=== PATIENT | male | born 1950 | race Caucasian/White ===

== ENCOUNTER 2019-12-13 12:45 | Outpatient (REF) | payer MEDICARE, SELFPAY ==
[2019-12-13 15:03] LABS: Alanine Aminotransferase 63 U/L (0-40); Albumin Level 4.3 g/dL (3.5-5.0); Alkaline Phosphatase 50 U/L (39-117); Anion Gap 12 (12-20); Aspartate Amino Transferase 36 U/L (5-37); Bilirubin Total 0.7 mg/dL (0.0-1.0); Blood Urea Nitrogen 25 mg/dL (9-16); Calcium 9.1 mg/dL (8.4-10.2); Carbon Dioxide 31 mmol/L (22-29); Chloride 100 mmol/L (96-108); Cholesterol 198 mg/dL; Estimated Glomerular Filt Rate > 60; Glucose Fasting 186 mg/dL (60-99); HDL Cholesterol 39 mg/dL; LDL Cholesterol Calculated 113 mg/dl; Potassium 4.5 mmol/l (3.3-5.1); Sodium 138 mmol/L (135-145); Total Protein 6.7 g/dL (6.5-8.0); Triglycerides 233 mg/dL
[2019-12-13 15:25] LABS: Estimated Average Glucose 214 mg/dL; Hemoglobin A1c % 9.1 %
== END 2019-12-13 12:46 | disposition home or self-care (01) ==
LOC: HO.LAB 12:45
PROVIDERS: PCP Physician Assistant; Visit Provider Physician Assistant
DX: E11.9 Type 2 diabetes mellitus without complications (principal); I10 Essential (primary) hypertension; E78.5 Hyperlipidemia, unspecified
CPT/HCPCS: 80053; 80061; 83036

== ENCOUNTER 2020-04-05 12:50 | Outpatient (REF) | payer MEDICARE, OTHER, SELFPAY ==
[2020-04-05 13:18] LABS: MANUAL DIFF FLAG NO
[2020-04-05 13:48] LABS: Basophils Percent Auto 0.2 % (0-2); Eosinophils Absolute Auto 0.1 X10*3/uL (0.0-0.4); Eosinophils Percent Auto 1.9 % (0-4); Hematocrit 42.7 % (42-52); Hemoglobin 14.6 g/dl (14.0-18.0); Imm Gran Abs Auto 0.01 X10*3/uL (0.00-0.03); Imm Gran Pct Auto 0.2 % (0.0-0.4); Lymphocytes Absolute Auto 1.5 X10*3/uL (1.2-4.9); Lymphocytes Percent Auto 27.4 % (20-40); Mean Corpuscular HGB Conc 34.2 g/dl (31.0-36.0); Mean Corpuscular Hemoglobin 31.1 pg (27.0-33.0); Mean Platelet Volume 9.1 fL (9.4-12.4); Monocytes Absolute Auto 0.4 X10*3/uL (0.1-1.2); Monocytes Percent Auto 7.3 % (2-11); Neutrophils Absolute Auto 3.4 X10*3/uL (2.0-8.3); Platelet Count 159 X10*3/uL (160-400); Red Blood Count 4.69 X10*6/uL (4.60-5.80); Red Cell Distribution Width 13.7 % (11.0-16.0); White Blood Count 5.4 X10*3/uL (4.8-10.8)
[2020-04-05 14:17] LABS: Estimated Average Glucose 212 mg/dL
[2020-04-05 14:41] LABS: Creatinine Urine 175.93 mg/dL; Microalbum/Creatinine Ratio Ur 34.1 ug/mg cr
[2020-04-05 14:45] LABS: Alanine Aminotransferase 70 U/L (0-40); Albumin Level 4.4 g/dL (3.5-5.0); Alkaline Phosphatase 44 U/L (39-117); Anion Gap 12 (12-20); Aspartate Amino Transferase 46 U/L (5-37); Bilirubin Total 0.7 mg/dL (0.0-1.0); Blood Urea Nitrogen 33 mg/dL (9-16); Calcium 9.4 mg/dL (8.4-10.2); Carbon Dioxide 28 mmol/L (22-29); Chloride 103 mmol/L (96-108); Cholesterol 175 mg/dL; Estimated Glomerular Filt Rate > 60; Glucose Fasting 167 mg/dL (60-99); HDL Cholesterol 38 mg/dL; LDL Cholesterol Calculated 112 mg/dl; Potassium 4.4 mmol/L (3.3-5.1); Sodium 139 mmol/L (135-145); Total Protein 6.9 g/dL (6.5-8.0); Triglycerides 125 mg/dL
== END 2020-04-05 12:51 | disposition home or self-care (01) ==
LOC: HO.LAB 12:50
PROVIDERS: PCP Physician Assistant; Visit Provider Physician Assistant
DX: E11.9 Type 2 diabetes mellitus without complications (principal); E78.2 Mixed hyperlipidemia; I10 Essential (primary) hypertension; E78.5 Hyperlipidemia, unspecified; R80.9 Proteinuria, unspecified
CPT/HCPCS: 36415; 80053; 80061; 82043; 83036; 85025

== ENCOUNTER 2020-07-26 09:52 | Outpatient (REF) | payer MEDICARE, SELFPAY ==
[2020-07-26 11:09] LABS: Estimated Average Glucose 131 mg/dL; Hemoglobin A1c % 6.2 %
[2020-07-26 11:13] LABS: Creatinine Urine 108.81 mg/dL; Microalbum/Creatinine Ratio Ur 12.8 ug/mg cr
[2020-07-26 11:15] LABS: Alanine Aminotransferase 39 U/L (0-40); Albumin Level 4.2 g/dL (3.5-5.0); Alkaline Phosphatase 50 U/L (39-117); Anion Gap 12 (12-20); Aspartate Amino Transferase 42 U/L (5-37); Bilirubin Total 0.7 mg/dL (0.0-1.0); Blood Urea Nitrogen 31 mg/dL (9-16); Calcium 9.4 mg/dL (8.4-10.2); Carbon Dioxide 30 mmol/L (22-29); Chloride 101 mmol/L (96-108); Cholesterol 193 mg/dL; Estimated Glomerular Filt Rate > 60; Glucose Fasting 128 mg/dL (60-99); HDL Cholesterol 43 mg/dL; LDL Cholesterol Calculated 129 mg/dl; Potassium 4.9 mmol/L (3.3-5.1); Sodium 138 mmol/L (135-145); Total Protein 6.9 g/dL (6.5-8.0); Triglycerides 107 mg/dL
[2020-07-26 11:31] LABS: SARS COV2 IgG Positive (Negative)
[2020-07-26 11:37] LABS: Prostate Specific Antigen Scr 0.79 ng/mL (<0.05-4.0)
== END 2020-07-26 09:53 | disposition home or self-care (01) ==
LOC: HO.LAB 09:52
PROVIDERS: PCP Physician Assistant; Visit Provider Physician Assistant
DX: Z12.5 Encounter for screening for malignant neoplasm of prostate (principal); Z20.822 Contact with and (suspected) exposure to COVID-19; I10 Essential (primary) hypertension; E11.9 Type 2 diabetes mellitus without complications
CPT/HCPCS: 36415; 80053; 80061; 82043; 83036; 84153; 86769

== ENCOUNTER 2020-11-12 11:01 | Outpatient (REF) | payer MEDICARE, SELFPAY ==
[2020-11-12 12:04] LABS: Hematocrit 42.1 % (42-52); Hemoglobin 14.4 g/dl (14.0-18.0); Mean Corpuscular HGB Conc 34.2 g/dl (31.0-36.0); Mean Corpuscular Hemoglobin 30.9 pg (27.0-33.0); Mean Corpuscular Volume 90.3 fL (80-98); Mean Platelet Volume 9.4 fL (9.4-12.4); Platelet Count 147 X10*3/uL (160-400); Red Blood Count 4.66 X10*6/uL (4.60-5.80); Red Cell Distribution Width 14.6 % (11.0-16.0); White Blood Count 4.9 X10*3/uL (4.8-10.8)
[2020-11-12 12:20] LABS: Alanine Aminotransferase 26 U/L (0-40); Albumin Level 4.1 g/dL (3.5-5.0); Alkaline Phosphatase 52 U/L (39-117); Anion Gap 12 (12-20); Aspartate Amino Transferase 23 U/L (5-37); Bilirubin Total 0.6 mg/dL (0.0-1.0); Blood Urea Nitrogen 29 mg/dL (9-16); Calcium 9.3 mg/dL (8.4-10.2); Carbon Dioxide 26 mmol/L (22-29); Chloride 108 mmol/L (96-108); Cholesterol 202 mg/dL; Estimated Glomerular Filt Rate > 60; Glucose Fasting 159 mg/dL (60-99); HDL Cholesterol 41 mg/dL; LDL Cholesterol Calculated 137 mg/dl; Potassium 4.6 mmol/L (3.3-5.1); Sodium 141 mmol/L (135-145); Total Protein 6.3 g/dL (6.5-8.0); Triglycerides 124 mg/dL
[2020-11-12 12:30] LABS: Estimated Average Glucose 146 mg/dL; Hemoglobin A1c % 6.7 %; TSH reflex Free T4 1.32 uIU/mL (0.32-4.0)
== END 2020-11-12 11:02 | disposition home or self-care (01) ==
LOC: HO.LAB 11:01
PROVIDERS: PCP Physician Assistant; Visit Provider Physician Assistant
DX: E11.9 Type 2 diabetes mellitus without complications (principal); I10 Essential (primary) hypertension
CPT/HCPCS: 36415; 80053; 80061; 83036; 84443; 85027

== ENCOUNTER 2021-07-02 12:11 | Outpatient (REF) | payer MEDICARE, OTHER, SELFPAY ==
[2021-07-02 12:48] LABS: Hematocrit 40.5 % (42.0-52.0); Hemoglobin 13.9 g/dl (14.0-18.0); Mean Corpuscular HGB Conc 34.3 g/dl (31.0-36.0); Mean Corpuscular Hemoglobin 31.5 pg (27.0-33.0); Mean Corpuscular Volume 91.8 fL (80.0-98.0); Mean Platelet Volume 9.5 fL (9.4-12.4); Platelet Count 157 X10*3/uL (160-400); Red Blood Count 4.41 X10*6/uL (4.60-5.80); Red Cell Distribution Width 13.9 % (11.0-16.0); White Blood Count 4.6 X10*3/uL (4.8-10.8)
[2021-07-02 13:11] LABS: Alanine Aminotransferase 49 U/L (0-40); Albumin Level 4.2 g/dL (3.5-5.0); Alkaline Phosphatase 56 U/L (39-117); Anion Gap 13 (12-20); Aspartate Amino Transferase 39 U/L (5-37); Bilirubin Total 0.8 mg/dL (0.0-1.0); Blood Urea Nitrogen 23 mg/dL (9-16); Calcium 9.8 mg/dL (8.4-10.2); Carbon Dioxide 29 mmol/L (22-29); Chloride 102 mmol/L (96-108); Cholesterol 184 mg/dL; Estimated Glomerular Filt Rate 58; Glucose Fasting 144 mg/dL (60-99); HDL Cholesterol 37 mg/dL; LDL Cholesterol Calculated 97 mg/dl; Potassium 4.9 mmol/L (3.3-5.1); Sodium 139 mmol/L (135-145); Total Protein 6.8 g/dL (6.5-8.0); Triglycerides 252 mg/dL
[2021-07-02 13:15] LABS: Estimated Average Glucose 171 mg/dL; Hemoglobin A1c % 7.6 %
[2021-07-02 13:39] LABS: TSH reflex Free T4 1.37 uIU/mL (0.32-4.0)
[2021-07-02 13:56] LABS: Creatinine Urine 165.61 mg/dL; Microalbum/Creatinine Ratio Ur 30.7 ug/mg cr
== END 2021-07-02 12:12 | disposition home or self-care (01) ==
LOC: HO.LAB 12:11
PROVIDERS: PCP Physician Assistant; Visit Provider Physician Assistant
DX: Z12.5 Encounter for screening for malignant neoplasm of prostate (principal); I10 Essential (primary) hypertension; E78.2 Mixed hyperlipidemia; E11.9 Type 2 diabetes mellitus without complications
CPT/HCPCS: 36415; 80053; 80061; 82043; 83036; 84153; 84443; 85027

== ENCOUNTER 2021-10-14 12:32 | Outpatient (REF) | payer MEDICARE, OTHER, SELFPAY ==
[2021-10-14 13:54] LABS: Hematocrit 37.6 % (42.0-52.0); Hemoglobin 12.6 g/dl (14.0-18.0); Mean Corpuscular HGB Conc 33.5 g/dl (31.0-36.0); Mean Corpuscular Hemoglobin 30.7 pg (27.0-33.0); Mean Corpuscular Volume 91.5 fL (80.0-98.0); Mean Platelet Volume 9.4 fL (9.4-12.4); Platelet Count 183 X10*3/uL (160-400); Red Blood Count 4.11 X10*6/uL (4.60-5.80); Red Cell Distribution Width 14.5 % (11.0-16.0)
[2021-10-14 13:56] LABS: Estimated Average Glucose 163 mg/dL; Hemoglobin A1c % 7.3 %
[2021-10-14 14:23] LABS: Alanine Aminotransferase 35 U/L (0-40); Albumin Level 3.8 g/dL (3.5-5.0); Alkaline Phosphatase 51 U/L (39-117); Anion Gap 13 (12-20); Aspartate Amino Transferase 22 U/L (5-37); Bilirubin Total 0.6 mg/dL (0.0-1.0); Blood Urea Nitrogen 15 mg/dL (9-16); Calcium 8.1 mg/dL (8.4-10.2); Carbon Dioxide 27 mmol/L (22-29); Chloride 106 mmol/L (96-108); Cholesterol 132 mg/dL; Estimated Glomerular Filt Rate > 60; Glucose Fasting 130 mg/dL (60-99); HDL Cholesterol 30 mg/dL; LDL Cholesterol Calculated 82 mg/dl; Potassium 4.6 mmol/L (3.3-5.1); Sodium 141 mmol/L (135-145); Total Protein 5.9 g/dL (6.5-8.0); Triglycerides 103 mg/dL
[2021-10-14 14:43] LABS: TSH reflex Free T4 0.98 uIU/mL (0.32-4.0)
== END 2021-10-14 12:33 | disposition home or self-care (01) ==
LOC: HO.LAB 12:32
PROVIDERS: PCP Physician Assistant; Visit Provider Physician Assistant
DX: E11.9 Type 2 diabetes mellitus without complications (principal); I10 Essential (primary) hypertension
CPT/HCPCS: 36415; 80053; 80061; 83036; 84443; 85027

== ENCOUNTER 2022-02-11 11:54 | Outpatient (REF) | payer MEDICARE, OTHER, SELFPAY ==
[2022-02-11 12:34] LABS: Hemoglobin 14.7 g/dl (14.0-18.0); Mean Corpuscular HGB Conc 34.2 g/dl (31.0-36.0); Mean Corpuscular Hemoglobin 30.7 pg (27.0-33.0); Mean Corpuscular Volume 89.8 fL (80.0-98.0); Mean Platelet Volume 9.2 fL (9.4-12.4); Platelet Count 154 X10*3/uL (160-400); Red Blood Count 4.79 X10*6/uL (4.60-5.80); Red Cell Distribution Width 14.1 % (11.0-16.0); White Blood Count 5.1 X10*3/uL (4.8-10.8)
[2022-02-11 13:32] LABS: Alanine Aminotransferase 61 U/L (0-40); Albumin Level 4.3 g/dL (3.5-5.0); Alkaline Phosphatase 54 U/L (39-117); Anion Gap 12 (12-20); Aspartate Amino Transferase 42 U/L (5-37); Bilirubin Total 0.8 mg/dL (0.0-1.0); Blood Urea Nitrogen 27 mg/dL (9-16); Calcium 9.5 mg/dL (8.4-10.2); Carbon Dioxide 30 mmol/L (22-29); Chloride 102 mmol/L (96-108); Cholesterol 216 mg/dL; Estimated Glomerular Filt Rate > 60; Glucose Fasting 212 mg/dL (60-99); HDL Cholesterol 41 mg/dL; LDL Cholesterol Calculated 128 mg/dl; Potassium 5.2 mmol/L (3.3-5.1); Sodium 139 mmol/L (135-145); Total Protein 6.8 g/dL (6.5-8.0); Triglycerides 239 mg/dL
== END 2022-02-11 11:55 | disposition home or self-care (01) ==
LOC: HO.LAB 11:54
PROVIDERS: PCP Physician Assistant; Visit Provider Physician Assistant
DX: E11.9 Type 2 diabetes mellitus without complications (principal); E78.2 Mixed hyperlipidemia
CPT/HCPCS: 36415; 80053; 80061; 85027

== ENCOUNTER 2022-07-11 15:41 | Outpatient (REF) | payer MEDICARE, OTHER, SELFPAY ==
[2022-07-11 16:44] LABS: Hematocrit 42.3 % (42.0-52.0); Hemoglobin 14.5 g/dl (14.0-18.0); Mean Corpuscular HGB Conc 34.3 g/dl (31.0-36.0); Mean Corpuscular Volume 90.4 fL (80.0-98.0); Mean Platelet Volume 9.7 fL (9.4-12.4); Platelet Count 202 X10*3/uL (160-400); Red Blood Count 4.68 X10*6/uL (4.60-5.80); White Blood Count 7.3 X10*3/uL (4.8-10.8)
[2022-07-11 16:53] LABS: Estimated Average Glucose 203 mg/dL; Hemoglobin A1c % 8.7 %
[2022-07-11 17:26] LABS: Creatinine Urine 194.04 mg/dL; Microalbum/Creatinine Ratio Ur 45.8 ug/mg cr
[2022-07-11 17:30] LABS: Alanine Aminotransferase 51 U/L (0-40); Albumin Level 4.4 g/dL (3.5-5.0); Alkaline Phosphatase 51 U/L (39-117); Anion Gap 15 (12-20); Aspartate Amino Transferase 39 U/L (5-37); Bilirubin Total 0.9 mg/dL (0.0-1.0); Blood Urea Nitrogen 25 mg/dL (9-16); Calcium 9.7 mg/dL (8.4-10.2); Carbon Dioxide 25 mmol/L (22-29); Chloride 106 mmol/L (96-108); Cholesterol 222 mg/dL; Estimated Glomerular Filt Rate 59; Glucose Fasting 155 mg/dL (60-99); HDL Cholesterol 40 mg/dL; LDL Cholesterol Calculated 126 mg/dl; Potassium 4.6 mmol/L (3.3-5.1); Sodium 141 mmol/L (135-145); Total Protein 6.9 g/dL (6.5-8.0); Triglycerides 282 mg/dL
[2022-07-11 17:46] LABS: TSH reflex Free T4 1.19 uIU/mL (0.32-4.0)
== END 2022-07-11 15:42 | disposition home or self-care (01) ==
LOC: HO.LAB 15:41
PROVIDERS: PCP Physician Assistant; Visit Provider Physician Assistant
DX: E78.2 Mixed hyperlipidemia (principal); E11.9 Type 2 diabetes mellitus without complications; I10 Essential (primary) hypertension
CPT/HCPCS: 36415; 80053; 80061; 82043; 83036; 84443; 85027

== ENCOUNTER 2022-12-01 13:01 | Outpatient (REF) | payer MEDICARE, OTHER, SELFPAY ==
[2022-12-01 13:50] LABS: Hematocrit 41.2 % (42.0-52.0); Hemoglobin 13.8 g/dl (14.0-18.0); Mean Corpuscular HGB Conc 33.5 g/dl (31.0-36.0); Mean Corpuscular Hemoglobin 30.9 pg (27.0-33.0); Mean Corpuscular Volume 92.2 fL (80.0-98.0); Mean Platelet Volume 9.6 fL (9.4-12.4); Platelet Count 154 X10*3/uL (160-400); Red Blood Count 4.47 X10*6/uL (4.60-5.80); Red Cell Distribution Width 13.6 % (11.0-16.0); White Blood Count 4.5 X10*3/uL (4.8-10.8)
[2022-12-01 14:16] LABS: Alanine Aminotransferase 41 U/L (0-40); Albumin Level 4.2 g/dL (3.5-5.0); Alkaline Phosphatase 49 U/L (39-117); Anion Gap 12 (12-20); Aspartate Amino Transferase 28 U/L (5-37); Bilirubin Total 0.5 mg/dL (0.0-1.0); Blood Urea Nitrogen 21 mg/dL (9-16); Calcium 9.1 mg/dL (8.4-10.2); Carbon Dioxide 27 mmol/L (22-29); Chloride 105 mmol/L (96-108); Cholesterol 218 mg/dL (<200); Estimated Glomerular Filt Rate > 60; Glucose Fasting 202 mg/dL (60-99); HDL Cholesterol 37 mg/dL (>40); LDL Cholesterol Calculated 129 mg/dL (<100); Potassium 4.5 mmol/L (3.3-5.1); Sodium 139 mmol/L (135-145); Total Protein 6.9 g/dL (6.5-8.0); Triglycerides 262 mg/dL (<150)
[2022-12-01 14:27] LABS: Prostate Specific Antigen Scr 0.56 ng/mL (<0.05-4.0)
== END 2022-12-01 13:02 | disposition home or self-care (01) ==
LOC: HO.LAB 13:01
PROVIDERS: PCP Physician Assistant; Visit Provider Physician Assistant
DX: Z12.5 Encounter for screening for malignant neoplasm of prostate (principal); I10 Essential (primary) hypertension; E11.9 Type 2 diabetes mellitus without complications
CPT/HCPCS: 36415; 80053; 80061; 84153; 85027

== ENCOUNTER 2023-05-26 11:27 | Outpatient (REF) | payer MEDICARE, OTHER, SELFPAY ==
[2023-05-26 12:34] LABS: Hematocrit 40.1 % (42.0-52.0); Hemoglobin 13.8 g/dl (14.0-18.0); Mean Corpuscular HGB Conc 34.4 g/dl (31.0-36.0); Mean Corpuscular Hemoglobin 31.4 pg (27.0-33.0); Mean Corpuscular Volume 91.3 fL (80.0-98.0); Mean Platelet Volume 9.7 fL (9.4-12.4); Platelet Count 154 X10*3/uL (160-400); Red Blood Count 4.39 X10*6/uL (4.60-5.80); Red Cell Distribution Width 13.8 % (11.0-16.0); White Blood Count 4.7 X10*3/uL (4.8-10.8)
[2023-05-26 13:11] LABS: Alanine Aminotransferase 42 U/L (0-40); Albumin Level 4.1 g/dL (3.5-5.0); Alkaline Phosphatase 51 U/L (39-117); Anion Gap 14 (12-20); Aspartate Amino Transferase 31 U/L (5-37); Bilirubin Total 0.4 mg/dL (0.0-1.0); Blood Urea Nitrogen 27 mg/dL (9-16); Calcium 9.4 mg/dL (8.4-10.2); Carbon Dioxide 29 mmol/L (22-29); Chloride 103 mmol/L (96-108); Cholesterol 194 mg/dL (<200); Estimated Glomerular Filt Rate > 60; Glucose Fasting 195 mg/dL (60-99); HDL Cholesterol 33 mg/dL (>40); LDL Cholesterol Calculated 122 mg/dL (<100); Potassium 4.6 mmol/L (3.3-5.1); Sodium 141 mmol/L (135-145); Total Protein 7.1 g/dL (6.5-8.0); Triglycerides 196 mg/dL (<150)
== END 2023-05-26 11:28 | disposition home or self-care (01) ==
LOC: HO.LAB 11:27
PROVIDERS: PCP Physician Assistant; Visit Provider Physician Assistant
DX: E11.9 Type 2 diabetes mellitus without complications (principal); I10 Essential (primary) hypertension
CPT/HCPCS: 36415; 80053; 80061; 85027

== ENCOUNTER 2023-05-27 15:49 | Outpatient (AMB) | payer MEDICARE, OTHER, SELFPAY ==
--- NOTE | 2023-05-27 15:52 | A.OFFPC_ITS ---
Vital Signs 05/27/23 15:55 Height 6 ft 1 in Weight 261 lb BMI 34.4 BP 134/72 Blood Pressure Location Lt brachial Position Sitting Respiration 16 Pulse 72 Pulse Source Pulse Oximeter Pulse Oximetry (%) 97 Oxygen Delivery Method Room Air Intake Visit Reasons: Follow up DMII Technician Preventative Medicine Required: No Accompanied by: Self / Same As Patient Allergies penicillin V Allergy (Unknown, Verified 05/27/23 16:01) rash, swelling Medication List - Last Reconciled 05/27/23 by Rigo Klein PA-C blood pressure test kit-large As directed glipizide 10 mg PO BID 90 days hydrochlorothiazide 25 mg PO DAILY lansoprazole 30 mg PO DAILY 90 days lisinopril 20 mg PO BID lorazepam 0.5 mg PO Q12H PRN 4 days lorazepam 0.5 mg PO Q12H PRN 4 days metformin 1,000 mg PO BID Tobacco use date assessed: 05/27/23 Fall risk assessment: No Falls in past year Last assessed Fall Risk: 05/27/23 Dental Screening Dental Screen Date: 05/27/23 Did you have a dental visit in the last 12 months?: Yes Did you have a dental problem in the last 6 months where you did not have access to dental care?: No Was dental information given to patient?: Patient has dentist HPI Follow up DMII HPI Details Ramiro is a 73 y/o M here today for a follow-up visit. ? Patient has a pmhx significant for DMII, HLD, GERD, HTN, obesity, Anxiety. ? .. ? DMII: \ Does report blood sugars have been somewhat elevated lately to dietary indiscretion.? He has been working hard to lose weight and has lost a few lb since last office visit. ??Today's A1c 8.9 from 8.3. He continues with glipizide and metformin. PLAN:? We discussed the need to continue working on lifestyle modifications to reduce his weight.? We discussed perhaps starting a GLP-1 due to the added benefit of weight loss and patient is considering. HE CONTINUES TO DECLINE MY OFFER START INSULIN. ? .. ? Hyperlipidemia:? Cholesterol elevated in the setting of weight gain..? STRONGLY ADVISED COMMENCING STATIN THERAPY.? Though unfortunately he has been reluctant to start statin therapy.? Will continue to work on lifestyle to reduce his high cholesterol. PLAN:? Goal LDL to be below 100 ? .. ? .. ? HTN: Doesn't check his BP at home.? Blood pressure acceptable today in office. ? Has been compliant with his blood pressure medications ? Denies any CP, SOB, dizziness. .. Obesity:? He reports he recently started talking to a dietitian, Continues to have an elevated BMI any does understand he needs to months adapt to better habits to his weight [facility] Medical History Normal colonoscopy Surgical History No pertinent past surgical history Family History Father Lung cancer Lymphoma Mother Intestinal cancer Brother Substance use disorder Social History Housing: House Alcohol intake: never Patient Tobacco Use Status: Former Tobacco user Quit Date: 35 years ago e-Cigarette/Vaping Use: Never Used Second Hand Smoke Exposure: No service: No Current occupational status: employed Cognitive needs: No Hearing needs: No Vision needs: Yes Questionnaire PHQ-9 Over the last 2 weeks, how often have you been bothered by any of the following problems? 1. Little interest or pleasure in doing things: not at all 2. Feeling down, depressed, or hopeless: not at all 3. Trouble falling or staying asleep, or sleeping too much: not at all 4. Feeling tired or having little energy: not at all 5. Poor appetite or overeating: not at all 6. Feeling bad about yourself - or that you are a failure or have let yourself or your family down: not at all 7. Trouble concentrating on things, such as reading the newspaper or watching television: not at all 8. Moving or speaking so slowly that other people could have noticed. Or the opposite - being so fidgety or restless that you have been moving around a lot more than usual: not at all 9. Thoughts that you would be better off or of hurting yourself in some way: not at all Total score: 0 Depression Screening Interpretation: Negative Depression Screening Done: Yes 35145 - PHQ-9 Billing: Yes Source: Developed by Casie Muse Kurt Kroenke and colleagues, with an educational mack from [employer]. Thrive Questionnaire Date Thrive assessed: 05/27/23 I am a: Patient What is your living situation today?: I have a steady place to live Within the past 12 months, did the food you bought not last and you didn't have the money to get more?: Never true Within the past 12 months, did you worry whether your food would run out before you got money to buy more?: Never true Do you have trouble paying for medicines?: No Do you have trouble getting transportation to medical appointments?: No Do you have trouble paying your heating and electricity bill?: No Do you have trouble taking care of your child, family member or friend?: No Do you have trouble with day-to-day activities such as bathing, preparing meals, shopping, managing finances, etc.?: No Are you currently unemployed and looking for a job?: No Are you interested in more education?: No Please select the resources that you would like help with: None Currently or been in a relationship where the following occur: no concerns reported THRIVE Score: 0 AUDIT C Alcohol Use Questionnaire (AUDIT-C) 1. How often do you have a drink containing alcohol?: Never Total Score: 0 GERARD-7 AMB Questionnaire GERARD-7 Date GERARD - 7 assessed: 05/27/23 Feeling nervous, anxious, or on edge: 0 = Not at all Not being able to stop or control worryin = Not at all Worrying too much about different things: 0 = Not at all Trouble relaxin = Not at all Being so restless that it is hard to sit still: 0 = Not at all Becoming easily annoyed or irritable: 0 = Not at all Feeling afraid as if something awful might happen: 0 = Not at all Total GERARD-7 score (0-4 normal; 5-9 mild; 10-14 moderate; 15-21 severe): 0 Source: Developed by Casie Muse Kurt Kroenke and colleagues, with an educational mack from [employer]. GERARD-7 Assessment Billing GERARD-7 Assessment Tool: GERARD-7 Assessment 12124 Physical exam (Primary Care) Vital Signs: Last Vital Signs Pulse 72 05/27/23 15:55 Resp 16 05/27/23 15:55 BP 134/72 05/27/23 15:55 Pulse Ox 97 05/27/23 15:55 Oxygen Delivery Method Room Air 05/27/23 15:55 BMI result Body Mass Index 34.4 Tobacco/Smoking Status: Tobacco use Status Tobacco use date assessed 05/27/23 05/27/23 16:01 Patient Tobacco Use Status Former Tobacco user 05/27/23 15:52 e-Cigarette/Vaping Use Never Used 05/27/23 15:52 PHQ-9: PHQ-9 Score PHQ-9: Total score 0 05/27/23 16:03 Depression Screening Interpretation: Negative Thrive Assessment: Date of Thrive Assessment Date Thrive assessed 05/27/23 05/27/23 16:01 Currently or been in a relationship where the following occur: no concerns reported Results AMB Hemoglobin A1c AMB Hemoglobin A1c 8.9 % Last Edit by ADAMA Anne on 05/27/23 16:03 Results Reviewed Results Reviewed: Laboratory Last Values Hgb A1c (Clinic) 8.9 % (4.0-6.0) H 05/27/23 15:52 Assessment and Plan Assessment & Plan (1) HTN (hypertension): Code(s): I10 - Essential (primary) hypertension Qualifiers: Hypertension type: essential hypertension Qualified Code(s): I10 - Essential (primary) hypertension Plan: Patient's blood pressure acceptable today in office. Has been working on lifestyle modifications and being more physically active to lose weight to help control his blood pressure. Will continue his current dose of lisinopril and hydrochlorothiazide with goal blood pressure to be below 140/90 (2) HLD (hyperlipidemia): Code(s): E78.5 - Hyperlipidemia, unspecified Qualifiers: Hyperlipidemia type: mixed hyperlipidemia Qualified Code(s): E78.2 - Mixed hyperlipidemia Plan: Patient's most fasting lipid panel showing elevated total cholesterol and LDL (130) for his cardiovascular risk being a diabetic.. AGAIN STRONGLY ADVISED TO START STATIN THERAPY THOUGH PATIENT ADAMANTLY DECLINES. He reports he would start car like and fish oil to try to reduce his blood cholesterol. Goal LDL to be below 100 (3) Type 2 diabetes mellitus: Code(s): E11.9 - Type 2 diabetes mellitus without complications Qualifiers: Diabetes mellitus complication status: without complication Diabetes mellitus detention insulin use: without detention use Qualified Code(s): E11.9 - Type 2 diabetes mellitus without complications Plan: Patient type 2 diabetes suboptimally controlled with current A1c at 8.9 Advised on perhaps starting GLP though he declines at this time stating it may be too many side effects. Continues on metformin a highest dose and glipizide 10 mg b.i.d.. He will work extensively on lifestyle modifications to reduce his high carbohydrate foods and being more physically active reduce his weight. Goal A1c to be below 7.0 (4) Obese: Code(s): E66.9 - Obesity, unspecified Qualifiers: Body mass index: BMI 35.0-35.9 Obesity classification: adult class 2 (BMI 35 - 39.9) Obesity type: due to excess calories Serious obesity comorbidity presence: without serious comorbidity Qualified Code(s): E66.09 - Other obesity due to excess calories; Z68.35 - Body mass index [BMI] 35.0-35.9, adult Plan: Again patient's BMI remains above 30 and patient does understand he needs to be more physically active an Adapta better eating habits to reduce his weight Orders: Orders AMB Hemoglobin A1c 05/27/23 E11.9 - Type 2 diabetes mellitus without complications Lipid Panel 3 Months E78.2 - Mixed hyperlipidemia Complete Blood Count no Diff 3 Months E11.9 - Type 2 diabetes mellitus without complications Comprehensive [place]. Panel Fast 3 Months E11.9 - Type 2 diabetes mellitus without complications Medications: Refilled lorazepam 0.5 mg PO Q12H 4 days PRN 8 tabs 0RF anxiety F41.1 - Generalized anxiety disorder Coding Level of Care Code Est Pt Level 4 (57186) Diagnoses Essential hypertension I10 Hypertension type: essential hypertension Mixed hyperlipidemia E78.2 Hyperlipidemia type: mixed hyperlipidemia Type 2 diabetes mellitus without complication, without long-term current use of insulin E11.9 Diabetes mellitus complication status: without complication Diabetes mellitus detention insulin use: without detention use Class 2 obesity due to excess calories without serious comorbidity with body mass index (BMI) of 35.0 to 35.9 in adult E66.09; Z68.35 Body mass index: BMI 35.0-35.9 Obesity classification: adult class 2 (BMI 35 - 39.9) Obesity type: due to excess calories Serious obesity comorbidity presence: without serious comorbidity Additional Codes GERARD-7 Assessment Billing - GERARD-7 Assessment Tool: GERARD-7 Assessment [id number] ([id number])
[2023-05-27 15:55] VITALS: BP 134/72; PULSE 72; RESP 16; O2SAT 97; BMI 34.4
== END 2023-05-27 16:21 | disposition home or self-care (01) ==
PROVIDERS: PCP Physician Assistant; Visit Provider Physician Assistant
DX: E11.9 Type 2 diabetes mellitus without complications (principal)
CPT/HCPCS: 83036; 99214

== ENCOUNTER 2023-11-09 10:27 | Outpatient (REF) | payer MEDICARE, OTHER, SELFPAY ==
[2023-11-09 10:48] LABS: Hematocrit 39.7 % (42.0-52.0); Hemoglobin 13.4 g/dl (14.0-18.0); Mean Corpuscular HGB Conc 33.8 g/dl (31.0-36.0); Mean Corpuscular Hemoglobin 30.7 pg (27.0-33.0); Mean Corpuscular Volume 90.8 fL (80.0-98.0); Mean Platelet Volume 9.4 fL (9.4-12.4); Platelet Count 159 X10*3/uL (160-400); Red Blood Count 4.37 X10*6/uL (4.60-5.80); Red Cell Distribution Width 14.2 % (11.0-16.0); White Blood Count 5.4 X10*3/uL (4.8-10.8)
[2023-11-09 11:47] LABS: Alanine Aminotransferase 46 U/L (0-40); Albumin Level 4.1 g/dL (3.5-5.0); Alkaline Phosphatase 46 U/L (39-117); Anion Gap 13 (12-20); Aspartate Amino Transferase 30 U/L (5-37); Bilirubin Total 0.5 mg/dL (0.0-1.0); Blood Urea Nitrogen 24 mg/dL (9-16); Calcium 9.7 mg/dL (8.4-10.2); Carbon Dioxide 28 mmol/L (22-29); Chloride 105 mmol/L (96-108); Cholesterol 194 mg/dL (<200); Estimated Glomerular Filt Rate > 60; Glucose Fasting 144 mg/dL (60-99); HDL Cholesterol 33 mg/dL (>40); LDL Cholesterol Calculated 119 mg/dL (<100); Potassium 4.7 mmol/L (3.3-5.1); Sodium 141 mmol/L (135-145); Total Protein 6.9 g/dL (6.5-8.0); Triglycerides 210 mg/dL (<150)
== END 2023-11-09 10:28 | disposition home or self-care (01) ==
LOC: HO.10HDL 10:27
PROVIDERS: Visit Provider Physician Assistant
DX: E11.9 Type 2 diabetes mellitus without complications (principal); E78.2 Mixed hyperlipidemia
CPT/HCPCS: 36415; 80053; 80061; 85027

== ENCOUNTER 2023-11-11 11:42 | Outpatient (AMB) | payer MEDICARE, OTHER, SELFPAY ==
[2023-11-11 11:56] VITALS: BP 128/76; PULSE 72; O2SAT 98; BMI 34.2
--- NOTE | 2023-11-11 11:56 | MHC.PC.OV ---
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 Programmable Controllers Required: No Accompanied by: Self / Same As Patient Allergies penicillin V Allergy (Unknown, Verified 11/11/23 12:20) rash, swelling Medication List - Last Reconciled 11/11/23 by Rigo Klein PA-C blood pressure test kit-large As directed glipizide 10 mg PO BID 90 days hydrochlorothiazide 25 mg PO DAILY lansoprazole 30 mg PO DAILY 90 days lisinopril 20 mg PO BID lorazepam 0.5 mg PO Q12H PRN 4 days metformin 1,000 mg PO BID Tobacco use date assessed: 05/27/23 Fall risk assessment: No Falls in past year Last assessed Fall Risk: 11/11/23 Dental Screening Dental Screen Date: 05/27/23 HPI f/u DMII/ HTN HPI Details Ramiro is a 73 y/o M here today for a follow-up visit. ? Patient has a pmhx significant for DMII, HLD, GERD, HTN, obesity, Anxiety. Has been working diligently on losing weight and he has lost a few lb since last office visit. Numbers are a bit better in his cholesterol ? .. ? DMII: \ Does report blood sugars have been somewhat elevated lately to dietary indiscretion.? He has been working hard to lose weight and has lost a few lb since last office visit. ??Today's A1c 8.1 from 8.9. He continues with glipizide and metformin. PLAN:? We discussed the need to continue working on lifestyle modifications to reduce his weight.? We discussed perhaps starting a GLP-1 due to the added benefit of weight loss and patient is considering. HE CONTINUES TO DECLINE MY OFFER START INSULIN. ? .. ? Hyperlipidemia:? Cholesterol elevated in the setting of weight gain..? STRONGLY ADVISED COMMENCING STATIN THERAPY.? Though unfortunately he has been reluctant to start statin therapy.? Will continue to work on lifestyle to reduce his high cholesterol. PLAN:? Goal LDL to be below 100 ? .. ? .. ? HTN: Doesn't check his BP at home.? Blood pressure acceptable today in office. ? Has been compliant with his blood pressure medications ? Denies any CP, SOB, dizziness. [facility] Medical History Normal colonoscopy Surgical History No pertinent past surgical history Family History Father Lung cancer Lymphoma Mother Intestinal cancer Brother Substance use disorder Social History Housing: House Alcohol intake: never Patient Tobacco Use Status: Former Tobacco user e-Cigarette/Vaping Use: Never Used Second Hand Smoke Exposure: No service: No Current occupational status: employed Cognitive needs: No Hearing needs: No Vision needs: Yes Questionnaire Thrive Questionnaire Date Thrive assessed: 05/27/23 GERARD-7 AMB Questionnaire GERARD-7 Date GERARD - 7 assessed: 05/27/23 Source: Developed by Drs. Shayan Villegas, Casie Stafford, Reza Rene and colleagues, with an educational mack from [employer]. Review of Systems Const Denies headache(s) Eyes Denies loss of vision ENT Denies vertigo, Denies dizziness, Denies headache(s) and Denies sore throat Card Denies chest pain, Denies leg edema and Denies lightheadedness Resp Denies cough, Denies hemoptysis and Denies wheezing GI Denies abdominal pain, Denies melena, Denies constipation, Denies diarrhea and Denies vomiting Denies dysuria, Denies urinary frequency and Denies urinary urgency Musc Denies arthralgias, Denies joint swelling, Denies numbness and Denies tingling Neuro Denies Abnormal speech present, Denies behavioral changes, Denies vertigo, Denies dizziness, Denies headache(s), Denies loss of vision, Denies memory loss, Denies numbness and Denies tingling Psych Denies anxiety, Denies behavioral changes, Denies depression, Denies memory loss and Denies panic attacks Jacob/Lymph Denies easy bleeding and Denies easy bruising Aller/Immun Denies wheezing Physical exam (Primary Care) Vital Signs: Last Vital Signs Pulse 72 11/11/23 11:56 BP 128/76 11/11/23 11:56 Pulse Ox 98 11/11/23 11:56 Oxygen Delivery Method Room Air 11/11/23 11:56 BMI result Body Mass Index 34.2 Tobacco/Smoking Status: Tobacco use Status Tobacco use date assessed 05/27/23 11/11/23 12:01 Patient Tobacco Use Status Former Tobacco user 11/11/23 12:01 e-Cigarette/Vaping Use Never Used 11/11/23 12:01 Thrive Assessment: Date of Thrive Assessment Date Thrive assessed 05/27/23 11/11/23 12:01 Const General: healthy appearing, no acute distress, alert and awake Nutritional Appearance: well nourished Orientation/consciousness: oriented to person, oriented to place and oriented to time HENMT Ears: TM's normal bilaterally General nose exam: Normal nasal mucous membranes and turbinates present Eyes Conjunctivae: conjunctivae normal Sclerae: sclerae normal Pupils: Equal, round and reactive pupils present Neck Neck: Yes no lymphadenopathy and Yes no JVD Thyroid: Thyroid normal Carotids: no bruits Resp Effort & Inspection: normal respiratory effort and not tachypneic Auscultation: no crackles, no rales, no rhonchi and no wheezes Cardio Rate: regular rate Rhythm: regular rhythm Heart sounds: no murmurs and normal S1 and S2 GI Palpation (GI): Soft to palpation, nontender, no hepatomegaly and no splenomegaly Auscultation: normal bowel sounds Skin General skin exam: no rashes or lesions noted and dry skin Neuro General: oriented to person, oriented to place and oriented to time Cranial nerves: Yes Equal, round and reactive pupils present Speech: No Abnormal speech present Gait exam (Neuro): Normal gait present Motor exam (neuro): no tremor noted Extrem Right upper extremity: full ROM Left upper extremity: full ROM Right lower extremity: full ROM; no edema Left lower extremity: full ROM; no edema Psych Mental Status: mental status grossly normal Speech and movement: Normal speech and movement present Affect: normal affect Attitude: cooperative Thought process: Normal thought process present Results AMB Hemoglobin A1c AMB Hemoglobin A1c 8.1 % Last Edit by ADAMA Anne on 11/11/23 12:06 Results Reviewed Results Reviewed: Laboratory Last Values Hgb A1c (Clinic) 8.1 % (4.0-6.0) H 11/11/23 11:53 Assessment and Plan Assessment & Plan (1) HTN (hypertension): Code(s): I10 - Essential (primary) hypertension Qualifiers: Hypertension type: essential hypertension Qualified Code(s): I10 - Essential (primary) hypertension Plan: Patient's blood pressure acceptable today in office. Has been working on lifestyle modifications and being more physically active to lose weight to help control his blood pressure. Will continue his current dose of lisinopril and hydrochlorothiazide with goal blood pressure to be below 140/90 (2) HLD (hyperlipidemia): Code(s): E78.5 - Hyperlipidemia, unspecified Qualifiers: Hyperlipidemia type: mixed hyperlipidemia Qualified Code(s): E78.2 - Mixed hyperlipidemia Plan: Patient's most fasting lipid panel showing elevated total cholesterol and LDL (130) for his cardiovascular risk being a diabetic.. AGAIN STRONGLY ADVISED TO START STATIN THERAPY THOUGH PATIENT ADAMANTLY DECLINES. He reports he would start car like and fish oil to try to reduce his blood cholesterol. Goal LDL to be below 100 (3) Type 2 diabetes mellitus: Code(s): E11.9 - Type 2 diabetes mellitus without complications Qualifiers: Diabetes mellitus edging machine feeder insulin use: without long-term use Diabetes mellitus complication status: without complication Qualified Code(s): E11.9 - Type 2 diabetes mellitus without complications Plan: Patient type 2 diabetes suboptimally controlled with current A1c at 8.1 Advised on perhaps starting GLP though he declines at this time stating it may be too many side effects. Continues on metformin a highest dose and glipizide 10 mg b.i.d.. He will work extensively on lifestyle modifications to reduce his high carbohydrate foods and being more physically active reduce his weight. Goal A1c to be below 7.0 Orders: Orders AMB Hemoglobin A1c Today E11.9 - Type 2 diabetes mellitus without complications Patient Instructions: Goal: A1c to be below 7.0, LDL to be below 100 Barrier: Adherence to physical activity and healthy eating habits Coding Level of Care Code Est Pt Level 4 (01805) Diagnoses Essential hypertension I10 Hypertension type: essential hypertension Mixed hyperlipidemia E78.2 Hyperlipidemia type: mixed hyperlipidemia Type 2 diabetes mellitus without complication, without long-term current use of insulin E11.9 Diabetes mellitus edging machine feeder insulin use: without edging machine feeder use Diabetes mellitus complication status: without complication
== END 2023-11-11 12:36 | disposition home or self-care (01) ==
PROVIDERS: PCP Physician Assistant; Visit Provider Physician Assistant
DX: I10 Essential (primary) hypertension (principal); E78.2 Mixed hyperlipidemia; E11.9 Type 2 diabetes mellitus without complications
CPT/HCPCS: 83036; 99214

== ENCOUNTER 2024-03-27 10:19 | Inpatient (IN) | payer MEDICARE, OTHER, SELFPAY ==
--- NOTE | ~2024-03-27 | XR_ITS ---
CLINICAL HISTORY: Chest pain 1 view chest x-ray Comparison: None Findings: Bibasilar atelectasis and/or pneumonitis. Edema is also considered given upper interstitial opacities and mild cardiomegaly accentuated by technique. No pneumothorax. Question small left pleural effusion. Degenerative changes include imaged AC joints and shoulders. IMPRESSION: Mild pulmonary opacities with atelectasis/pneumonitis. This document has been electronically signed by: Bon Del Castillo MD on 03/27/2024 19:26:24
--- NOTE | 2024-03-27 10:20 | ECG_ITS ---
Test Reason : CP Blood Pressure : */* mmHG Vent. Rate : 85 BPM Atrial Rate : 85 BPM P-R Int : 140 ms QRS Dur : 148 ms QT Int : 390 ms P-R-T Axes : 51 -26 13 degrees QTcB Int : 464 ms Normal sinus rhythm Right bundle branch block Abnormal ECG When compared with ECG of 22-Mar-2009 10:55, Right bundle branch block present Referred By: Generic ED Physician Electronically Signed By: JOSE CRUZ WOODS
[2024-03-27 10:35] VITALS: BP 174/82; PULSE 86; RESP 18; TEMP 36.6; O2SAT 97; BMI 35.6
[2024-03-27 10:52] LABS: MANUAL DIFF FLAG NO
[2024-03-27 10:53] LABS: Basophils Percent Auto 0.3 % (0-2); Eosinophils Absolute Auto 0.1 X10*3/uL (0.0-0.4); Eosinophils Percent Auto 1.2 % (0-4); Hematocrit 39.7 % (42.0-52.0); Imm Gran Abs Auto 0.03 X10*3/uL (0.00-0.03); Imm Gran Pct Auto 0.5 % (0.0-0.4); Lymphocytes Absolute Auto 1.2 X10*3/uL (1.2-4.9); Lymphocytes Percent Auto 20.9 % (20-40); Mean Corpuscular HGB Conc 35.3 g/dl (31.0-36.0); Mean Corpuscular Hemoglobin 31.3 pg (27.0-33.0); Mean Corpuscular Volume 88.8 fL (80.0-98.0); Mean Platelet Volume 9.4 fL (9.4-12.4); Monocytes Absolute Auto 0.4 X10*3/uL (0.1-1.2); Monocytes Percent Auto 6.1 % (2-11); Neutrophils Absolute Auto 4.1 x10*3/uL (2.0-8.3); Platelet Count 147 X10*3/uL (160-400); Red Blood Count 4.47 X10*6/uL (4.60-5.80); Red Cell Distribution Width 13.8 % (11.0-16.0); White Blood Count 5.7 X10*3/uL (4.8-10.8)
[2024-03-27 11:11] LABS: Anion Gap 16 (12-20); Blood Urea Nitrogen 32 mg/dL (9-16); Calcium 9.8 mg/dL (8.4-10.2); Carbon Dioxide 25 mmol/L (22-29); Chloride 102 mmol/L (96-108); Estimated Glomerular Filt Rate > 60; Glucose Random 260 mg/dL (60-115); Potassium 4.5 mmol/L (3.3-5.1); Sodium 138 mmol/L (135-145)
[2024-03-27 11:19] LABS: Troponin-I High Sensitivity 14.9 ng/L (<3.5-35.0)
[2024-03-27 16:51] VITALS: BP 159/84; PULSE 71; RESP 12; TEMP 36.5; O2SAT 100
--- NOTE | 2024-03-27 17:08 | ED.CHESTPAIN ---
HPI - Chest Pain General Chief Complaint: Chest Pain Stated Complaint: chest pain Time Seen by Provider: 03/27/24 16:53 Source: patient and family Mode of arrival: ambulatory Limitations: no limitations History of Present Illness ED Provider: DR. Gibbs HPI narrative: 73-year-old male with history of hypertension on lisinopril, patient had a sneeze this morning followed by severe dizziness with feeling of room spinning and lightheadedness patient laid down for about 15 minutes when symptoms improved, came to the ED symptoms free, patient declined any strenuous activity, currently no CP, no SOB. Patient declined any bleeding symptoms. Related Data Previous Rx's ?Medication ?Instructions ?Recorded blood pressure test kit-large #1 ea 10/16/21 lansoprazole 30 mg capsule,delayed 30 mg PO DAILY 90 days #90 caps 07/15/22 release lorazepam 0.5 mg tablet 0.5 mg PO Q12H PRN anxiety 4 days 05/27/23 #8 tabs glipizide 10 mg tablet 10 mg PO BID 90 days #180 caps 01/13/24 hydrochlorothiazide 25 mg tablet 25 mg PO DAILY #90 caps 01/13/24 lisinopril 20 mg tablet 20 mg PO BID #180 caps 01/13/24 metformin 1,000 mg tablet 1,000 mg PO BID #180 caps 01/13/24 Allergies Allergy/AdvReac Type Severity Reaction Status Date / Time penicillin V Allergy Unknown rash, Verified 03/27/24 10:37 swelling Review of Systems Review of Systems: All other systems are reviewed and are negative Constitutional: Reports as per HPI and Reports no additional constitutional complaints Eyes: Reports as per HPI and Reports no additional eye complaints Reports system reviewed and no additional complaints, except as documented Cardiovascular: Reports as per HPI and Reports no additional cardiovascular complaints Respiratory: Reports as per HPI and Reports no additional respiratory complaints Gastrointestinal: Reports as per HPI and Reports no additional gastrointestinal complaints Genitourinary: Reports no additional female genitourinary complaints Musculoskeletal: Reports no additional musculoskeletal complaints Skin/Breast: Reports system reviewed and no additional complaints, except as docu Psychiatric: Reports no additional psychiatric complaints Endocrine: Reports no additional endocrine complaints Hematologic/Lymphatic: Reports no additional hematologic/lymphatic complaints Allergic/Immunologic: Reports no additional allergic/immunologic complaints Reports system reviewed and no additional complaints, except as documented and Reports Abnormal speech present [facility] Past Medical History Medical History Normal colonoscopy Surgical History No pertinent past surgical history Family History Family History Father Lung cancer Lymphoma Mother Intestinal cancer Brother Substance use disorder Social History Social History Housing: House Alcohol intake: never Patient Tobacco Use Status: Former Tobacco user e-Cigarette/Vaping Use: Never Used Second Hand Smoke Exposure: No service: No Current occupational status: employed Cognitive needs: No Hearing needs: No Vision needs: Yes Physical Exam Vital Signs: Vital Signs: Last Vital Signs Temp 97.7 F 03/27/24 16:51 Pulse 71 03/27/24 16:51 Resp 12 03/27/24 16:51 BP 159/84 H 03/27/24 16:51 Pulse Ox 100 03/27/24 16:51 O2 Del Method Room Air 03/27/24 16:51 BMI result Body Mass Index 35.6 Vital signs have been reviewed and appear to be correct. Blood pressure elevated. Heart rate normal. Respiratory rate normal. Temperature normal. Oxygen saturation normal. Appearance: Alert. Oriented X3. No acute distress. Head: Normal external exam. Normocephalic. Atraumatic. No Camacho signs noted. No raccoon eyes noted Eyes: PERRLA. EOMI. Conjunctiva and sclera normal. Eyelids normal. ENT: TM's Normal. Pharynx normal. Uvula midline. Moist mucous membranes. No trismus noted. No drooling noted. No muffled voice noted. Neck: Normal inspection. Neck supple. FROM. No adenopathy. Thyroid Normal. No meningeal signs. No neck mass noted. CVS: Normal heart rate and rhythm. Heart sound normal. No murmurs noted. Pulses normal throughout. Respiratory: No respiratory distress. Painless inspiration. Breath sounds normal. No wheezes/rales/rhonchi noted. Chest nontender. No accessory muscle usage noted or decreased air movement noted. Abdomen: Soft and nontender. Bowel sounds normal in all 4 quadrants. No distention noted. No organomegaly noted. No visible injury noted. Back: No CVA tenderness. Full range of motion noted. Skin: Skin warm and dry. Normal skin color. Normal skin turgor. No rashes/lesions/lacerations noted. Extremities: No lower extremity edema. Extremities exhibit normal range of motion. Extremities nontender. Neuro: Oriented X 3. Cranial nerve exam: II-XII are grossly intact No motor deficit. No sensory deficit. Reflexes normal. Course Reevaluation(s) Reevaluation #1: 73-year-old male with non STEMI/chest pain. Patient now is asymptomatic with no symptoms, EKG significant for right bundle branch block otherwise no significant ST-T indication of STEMI. Troponin went from normal to 191. Case discussed with Dr. Pierce will start aspirin, heparin, serial troponins. Case discussed with Dr. ward to admit the patient to the hospitalist service.. Time: 17:18 Medical Decision Making Differential Diagnosis Differential Diagnoses: The differential diagnosis associated with the presentation includes (ACS, chest wall pain, pneumonia, pneumothorax, pleural effusion, electrolyte derangement, severe anemia.) Admission/Observation Consideration of admission/observation: Escalation of care including admission/observation considered Consult Healthcare Provider Management of the patient was discussed with: Hospitalist (Dr. Ward) and Martial Arts Instructor (Dr. Pierce) Lab Data MDM Lab Attestation statement: I reviewed the patient's lab results. 03/27/24 10:31 03/27/24 10:31 Labs: Lab Results 03/27/24 03/27/24 Range/Units 10:31 16:05 WBC 5.7 (4.8-10.8) X10*3/uL RBC 4.47 L (4.60-5.80) X10*6/uL Hgb 14.0 (14.0-18.0) g/dl Hct 39.7 L (42.0-52.0) % MCV 88.8 (80.0-98.0) fL MCH 31.3 (27.0-33.0) pg MCHC 35.3 (31.0-36.0) g/dl RDW 13.8 (11.0-16.0) % Plt Count 147 L (160-400) X10*3/uL MPV 9.4 (9.4-12.4) fL Immature Gran % (Auto) 0.5 H (0.0-0.4) % Neut % (Auto) 71.0 (45-73) % Lymph % (Auto) 20.9 (20-40) % [place] % (Auto) 6.1 (2-11) % Eos % (Auto) 1.2 (0-4) % Baso % (Auto) 0.3 (0-2) % Lymph # (Auto) 1.2 (1.2-4.9) X10*3/uL [place] # (Auto) 0.4 (0.1-1.2) X10*3/uL Eos # (Auto) 0.1 (0.0-0.4) X10*3/uL Baso # (Auto) 0.0 (0.0-0.2) X10*3/uL Abs Immat Gran (auto) 0.03 (0.00-0.03) X10*3/uL Absolute Neuts (auto) 4.1 (2.0-8.3) x10*3/uL Absolute Nucleated RBC 0.000 (0.0-0.012) X10*3/uL Nucleated RBC % (auto) 0.0 (0.0-0.2) /100WBC Sodium 138 (135-145) mmol/L Potassium 4.5 (3.3-5.1) mmol/L Chloride 102 (96-108) mmol/L Carbon Dioxide 25 (22-29) mmol/L Anion Gap 16 (12-20) BUN 32 H (9-16) mg/dL Creatinine 1.19 (0.5-1.4) mg/dL Estim Creat Clear Calc 78.0 Estimated GFR > 60 Random Glucose 260 H (60-115) mg/dL Calcium 9.8 (8.4-10.2) mg/dL Troponin I High Sens 14.9 191.0 H* D (<3.5-35.0) ng/L Independent Interpretation I performed an independent interpretation of an: Plain X-Ray Radiology Impression Discussion of test interpretation with radiology: I have reviewed the radiologist's reading. Discharge Plan Discharge Clinical Impression: Non-ST elevated myocardial infarction (non-STEMI) Patient Disposition: Admitted As Inpatient Prescriptions: No Action hydrochlorothiazide 25 mg tablet 25 mg PO DAILY Qty: 90 2RF lisinopril 20 mg tablet 20 mg PO BID Qty: 180 2RF metformin 1,000 mg tablet 1,000 mg PO BID Qty: 180 2RF glipizide 10 mg tablet 10 mg PO BID 90 Days Qty: 180 2RF (DME) blood pressure test kit-large Kit See Rx Instructions .Route Qty: 1 0RF Rx Instructions: As directed lansoprazole 30 mg capsule,delayed release(DR/EC) 30 mg PO DAILY 90 Days Qty: 90 2RF lorazepam 0.5 mg tablet 0.5 mg PO Q12H PRN (Reason: anxiety) 4 Days Qty: 8 0RF Print Language: Wolof
--- OUTSIDE RECORDS SUMMARY | 2024-03-27 17:13 | XMS_ITS ---
Author Organization [facility] Address [address] [place] [address] Care Team Providers Care Supervisor Roller Shop Name Role Phone Rigo Klein Primary Care Provider Unavailab Chetna Moncada Unavailable [phone] Sorin Kingsley [phone] REASON FOR VISIT Transfer to Different Provider Encounters Encounter Location Date Provider Diagnosis [facility] [address] [place] [address] 03/09/2024 Sorin Kingsley Plan Of Treatment Next Appt Details Provider Name:Chetna Harriet ferrara, 03/30/2024 10:00:00 AM, [address] [place], [address], Progress Notes * Ramiro CLAYTON JrDOB:[birth year] (73 yo M)Acc No.[id number]:03/09/2024 Progress Note Patient:?Ramiro CLAYTON Jr Provider:?Sorin Kingsley DPM :1950???Age:73 Y???Sex:Male Bienvenido e:03/09/2024 Address:[address] [place] [address] Pcp:Rigo Klein Subjective: * Chief Complaints: * ???1. Transfer to Different Provider. * Medical History:? Objective: * Vitals:? Assessment: Plan: * Treatment: * Images: * The named appointment provid er may or may not be the originator of this progress note, and it is not deemed complete until electronically signed by the appointment provider. Sign off status: Pending * Provider:Marco Kingsley DPM Date:? 025 Generated for Chari donis/Aaliyah/Marcy on:?03/27/2024 05:13 PM EST
--- OUTSIDE RECORDS SUMMARY | 2024-03-27 17:13 | XMS_ITS ---
Author Organization [facility] Address [address] [place] [address] Care Team Providers Care Locket Maker Name Role Phone Rigo Klein Primary Care Provider Unavailab Chetna Moncada Unavailable [phone] Allergies Allergen (clinical drug ingredient) Drug/Non Drug Allergy documented on EMR Reaction Allergy Type Onset Date Status amoxicillin Amoxicillin Unknown Drug Allergy Act ayad Penicillin Unknown Drug Allergy Active REASON FOR VISIT Skin Problem, At Risk Footcare Medications Medication SIG (Take, Route, Frequency, Duration) Notes Start Date End Date Status Vitamin E Active Extra Depth Orthopedic Shoes (1 Pair) with Customized Heat Molded Multidensity Innersoles (3 Pair) as directed Dx: NIDDM/Polyneuropath y (E11.42), Hammertoe Foot Deformity (M20.41,M20.42), Preulcerative Skin Lesion(s) (L85.1 Not-Taking steroids Not-Taking Calcium Active Ciclopirox Olamine 0.77 % 1 application Externally Twice a day to skin of feet including between the toes for 30 days Active Lisinopril 20 MG 1 tablet Orally Twice a day Active Papaya Enzyme Active LORazepam 0.5 MG 1 tablet as needed Orally every 6 hrs PRN Active Vitamin C Active Vitamin B 12 Active metFORMIN HCl 1000 MG 1 tablet with a meal Orally Twice a day Active hydroCHLOROthiazide 25 MG 1 tablet in th e morning Orally Once a day for 30 day(s) Active Lansoprazole 30 MG Orally PRN A ctive glipiZIDE 10 MG 1 tablet Orally Twice a day Active Gabapentin 100 MG 1 capsule Orally Three times a day for 30 day(s) PRN Active Doxycycline 9 months out of the year Active Social History Tobacco Use: Social History Observation Description Date Details (start date - stop date) Former Smoker NA - NA Tobacco Use/Smoking Question Answer Notes Are you a: former smoker Additional Findings: Tobacco Non-User Current no n-smoker Alcohol Screen Question Answer Notes Did you have a drink containing alcohol in the p ast year? No Points 0 Interpretation Negative Tobacco use other than smoking: Question Answer Notes Are you an other tobacco user? No Vital Signs Height 6ft 1in in 12/22/2023 Weight 255 lbs 12/22/2023 BMI 33.64 kg/m2 12/22/2023 Blood pressure systolic 120 mm Hg 12/22/19 24 Blood pressure diastolic 74 mm Hg 024 Procedures Procedure Date Ordered Date Performed Result Body Sit e 26306-RMOBHLR NAIL, 1-5 12/22/2023 N/A 53181-PLVI SKIN LESIONS, OVER 4 12/22/2023 N/A W4998-QAICMIHR DYSTROPHIC NAILS ANY # 12/22/2023 N/A Encounters Encounter Location Date Provider Diagnosis [facility] [address] [place] [address] 12/22/2023 Chetna Dunbar Tinea pedis of both feet B35.3 ; Type 2 diabetes mellitus with diabetic polyneuropathy E11.42 and Tinea unguium B35.1 Assessments Encounter Date Diagnosis (ICD Code) Assessment Notes Treatment Notes Treatment Clinical Notes Section Notes 12/22/2023 Tinea pedis of both feet (ICD-10 - B35.3) 12/22/2023 Type 2 diabetes mellitus with diabetic polyneuropathy (ICD-10 - E11.42) 12/22/2023 Tinea unguium (ICD-10 - B35.1) Plan Of Treatment Medication Medication Name Sig Start Date Stop Date Notes Ciclopirox Olamine 0.77 % 1 application Externally Twice a day to skin of feet including between the toes for 30 days Pending Test Test Name Order Date [id number]-FBRGBFK NAIL, 1-5 12/22/2023 22159-THTF SKIN LESIONS, OVER 4 12/22/19 24 W3833-ATHFRKSO DYSTROPHIC NAILS ANY # Next Appt Details Follow Up: 3 Months, Reason: Provider Name:Chetna Larios josias, 03/30/2024 10:00:00 AM, [address] [place], [address], Procedure Notes * Category Sub-Category Detail Notes Keratoma Treatment Parring or Cutting o f Benign Hyperkeratotic Lesion(s) 41116 ( >4 Lesions) - The Benign hyperkeratotic lesions, as described above were pared, and/or cut utilizing a sterile #15 blade, tissue nippers, and/or dremel Debride Nails 1-5 Procedure: Nail debrideme nt performed extensively to reduce/remove overall nail length and girth, subungual debris, and necrotic tissue, by manual and electrical means by use of a nail nipper and/or dremel, to more viable healthy nail plate or bed tissue 1-5. Silver nitrate used for any petechial bleeding as necessary. Patient chooses, no pharmaceutical tx (58419) Nail Reduction Nail Reduction Trimming of dyst rophic nails performed to reduce/remove overall nail length and girth, by manual and electrical means with use of a nail nipper and/or dremel, to more viable healthy nail plate or bed tissue 6-10 (G0127) Progress Notes * Ramiro CLAYTON JrDOB:[birth year] (73 yo M)Acc No.[id number]:12/22/2023 Progress Note Patient:?Ramiro Clayton Provider:?Chetna Dunbar DPM :1950???Age:73 Y???Sex:Male Bienvenido e:12/22/2023 Address:[address] [place], [place] [id number] Pcp:Rigo Klein Subjective: * Chief Complaints: * ???Skin ProblemAt Risk Footc are * HPI: ???Skin problems:?Nature:?scaling , redness.?Location:?B/L .?Duration:?several days.?Course:?worse.?At Risk footcare:?Pt States Last PCP Visit:?Date?11/11/2023 * ROS:?General/Constitutional:?Nausea?denies.?Vomiting?denies.?Hunger Thirst?denies.?Loss appetite?denies.?Chills?denies.?Fatigue?denies.?Fever?denies.?Night Sweats?denies.?Unexplained weight loss?denies.?Unexplained weight gain?denies.?HEENTM:?Dentures?denies.?Dizziness?denies.?Glasses/contacts?admits.?Retinopathy?de nies.?Blurred/double vision?denies.?TMJ?denies.?Discharge/drainage?denies.?Implants?denies.?Sore throat?denies.?Dental implants?denies.?Hard of hearing ?denies.?Difficulty chewing/swallowing/speaking?denies.?Nose bleeds?denies.?Sore mouth?denies.?Respiratory:?On Oxygen?denies.?Pneumonia/pleurisy?denies.?Bronchitis?denies.?Emphysema?denies.?C oughing?denies.?Cough blood?denies.?Shortness of breath?denies.?Wheezing?denies.?Cardiovascular:?Pacemaker?denies.?MVP?denies.?WPW?denies.?CHF?denies.?Heart attack?denies.?Septal defect?denies.?Rapid beat?denies.?Chest pain ?denies.?Atrial Fib.?denies.?Murmur/Palpitations?denies.?Gastrointestinal:?Hemorrhoids?denies.?Stomach/Abdominal pain?denies.?Dark blood stool?denies.?Irritable bowel ?denies.?Constipation?denies.?Diarrhea?denies.?Hematology:?Swelling?denies.?Clots?denies.?Varicose Veins?denies.?Bruising?denies.?Bleeding problem?denies.?Genitourinary:?Blood urine?denies.?Frequent/Painfu/urination/bladder control?denies.?Kidney stones?denies.?Infection (UTI)?denies.?Nephropathy?denies.?sex trans dis (STD)?denies.?Prostate?denies.?Musculoskeletal:?Hammertoes?denies.?Bunions?denies.?Back Pain?denies.?Muscle Cramps/ Resting?denies.?Muscle cramps / walking?denies.?Generalized aches and pains?denies.?Weakness?denies.?Integ.:?[place]?denies.?Scars?denies.?Corns/calluses?denies.?Ingrown nails?denies.?Painful nails?denies.?Open Sores?denies.?Rashes?denies.?Neurologic:?Difficulty sleeping?denies.?Brain disorder?denies.?Numbness?admits.?Balance trouble?denies.?Confusion?denies.?Fainting/blackouts?denies.?Tingling?denies.?Tr emors?denies.? * Medical History:? * Surgical History:?tonsillect stuart * Hospitalization/Major Diagno stic Procedure:?Denies Past Hospitalization * Family History:?Mother: dece ased, cancer.?Father: , cancer.? * Social History:?Tobacco Use:?Tobacco Use/Smoking?Are you a:?former smoker ?Additional Findings: Tobacco Non-User?Current non-smoker ?Tobacco use other than smoking?Are you an other tobacco user??No ???Drugs/Alcohol:?Drugs?Have you used drugs other than those for medical reasons in the past 12 months??No ?Alcohol Screen?Did you have a drink containing alcohol in the past year??No ?Points?0 ?Interpretation?Negative ???Miscellaneous:?no Caffeine. ?no Children. ?Exercise: yes, havy work. ?Marital status: . 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 * Medications:?TakingCalcium D oxycycline , Notes: 9 months out of the yearGabapentin 100 MG Capsule 1 capsule Orally Three times a day, Notes: PRNglipiZIDE 10 MG Tablet 1 tablet Orally Twice a dayhydroCHLOROthiazide 25 MG Tablet 1 tablet in the morning Orally Once a daymetFORMIN HCl 1000 MG Tablet 1 tablet with a meal Orally Twice a dayLansoprazole 30 MG Capsule Delayed Release Orally , Notes: PRNLisinopril 20 MG Tablet 1 tablet Orally Twice a dayLORazepam 0.5 MG Tablet 1 tablet as needed Orally every 6 hrs, Notes: PRNPapaya Enzyme Vitamin B 12 Vitamin C Vitamin E Taking Calcium Taking Doxycycline , Notes: 9 months out of the yearTaking Gabapentin 100 MG Capsule 1 capsule Orally Three times a day, Notes: PRNTaking glipiZIDE 10 MG Tablet 1 tablet Orally Twice a dayTaking hydroCHLOROthiazide 25 MG Tablet 1 tablet in the morning Orally Once a dayTaking metFORMIN HCl 1000 MG Tablet 1 tablet with a meal Orally Twice a dayTaking Lansoprazole 30 MG Capsule Delayed Release Orally , Notes: PRNTaking Lisinopril 20 MG Tablet 1 tablet Orally Twice a dayTaking LORazepam 0.5 MG Tablet 1 tablet as needed Orally every 6 hrs, Notes: PRNTaking Papaya Enzyme Taking Vitamin B 12 Taking Vitamin C Taking Vitamin E Not-Taking/PRNsteroids Extra Depth Orthopedic Shoes (1 Pair) with Customized Heat Molded Multidensity Innersoles (3 Pair) as directed Dx: NIDDM/Polyneuropathy (E11.42), Hammertoe Foot Deformity (M20.41,M20.42), Preulcerative Skin Lesion(s) (L85.1Medication List reviewed and reconciled with the patientNot-Taking/PRN steroids Not-Taking/PRN Extra Depth Orthopedic Shoes (1 Pair) with Customized Heat Molded Multidensity Innersoles (3 Pair) as directed Dx: NIDDM/Polyneuropathy (E11.42), Hammertoe Foot Deformity (M20.41,M20.42), Preulcerative Skin Lesion(s) (L85.1Medication List reviewed and reconciled with the patient * Allergies:?AmoxicillinPenici llin: Allergyyes[Allergies Verified] Objective: * Vitals:?Ht: 6ft 1in, Wt:255, BMI:33.64, Shoe size: 12.5 EE-13W, BP:120/74 mm Hg, BS: 160, Ht-cm: 185.42 cm, Wt-k.67 kg. * ???Past Orders: ???Lab:HEMOGLOBIN A1C (GLYCO HEMOGLOBIN) (Order Date - 11/11/2023) (Collection Date - 11/11/2023) ? Value Reference Range ?TOTAL HEMOGLOBIN (HGBA1C) 9.6 * Examination: ???General Examination: ?GENERAL APPEARANCE:?Reveals a pleasant, alert, well nourished, well- developed, well hydrated individual, who demonstrates proper attention to hygiene/body habitus, and is in no acute distress, Pt serves as own historian for office visit today.?ORIENTED:?person, place, and time.?Dermatologic: ?SKIN FINDINGS:?Skin shows sign(s) of, erythema, scaling, in a moccasin fashion, no fissure(s) present, B/L , Skin exam reveals Keratotic lesion(s) located at ?Plantar, TA, T5, SUB MTH (s), 1, 2, 3, B/L, Heel(s), B/L.?Nails: ?NAILS are:?Elongated, overgrown, dystrophic, lytic, greater than 3mm thick, discolored and friable with crumbly malodorous subungual debris, with dull to no pain on palpation due to neuropathy, TA, T5, T6, T7, remaining nails are elongated, overgrown, dystrophic.?Neurological: ?SENSORY:?Neurological exam demonstrates, reduced light touch sensation, reduced sharp/dull discrimination , reduced vibration sensation, in a stocking fashion, B/L, 5.07 monofilament test performed at plantar aspects of 5 varied sites per foot shows sensation, reduced, B/L.?Vascular: ?DP PULSES(B):?1/4, B/L.?PT PULSES(B):? 2/4, B/L.?CAPILLARY FILL TIME:?3 secs. per digit. B/L.?TROPHIC CONDITION-TEXTURE/ELASTICITY/TURGOR/HAIR GROWTH(B):?normal, B/L.?TEMPERTURE GRADIENT(C):?normal, B/L.?PIGMENTATION:?normal, B/L.?EDEMA(C):?absent, B/L.?TELANGECTASIA:?absent, B/L.?Orthopedic: ?MUSCLE STRENGTH:?5/5 all groups in a symmetrical fashion, B/L.?Ophthalmology Referral: ?DIABETES EYE EXAM? Assessment: * Assessment: 1.?Tinea pedis of both feet - B35.3, Acute problem, Uncomplicated (3),Rx drug management (4)?2.?Tinea unguium - B35.1?3.?Type 2 diabetes mellitus with diabetic polyneuropathy - E11.42 (Primary)? Plan: * Treatment: 2.?Tinea pedis of both feet? Start Ciclopirox Olamine Cream, 0.77 %, 1 application, Externally, Twice a day to skin of feet including between the toes, 30 days, 60, Refills 2.?? * Procedures:?Debride Nails 1-5:?Procedure:?Nail debridement performed extensively to reduce/remove overall nail length and girth, subungual debris, and necrotic tissue, by manual and electrical means by use of a nail nipper and/or dremel, to more viable healthy nail plate or bed tissue 1-5. Silver nitrate used for any petechial bleeding as necessary. Patient chooses, no pharmaceutical tx (04689).?Keratoma Treatment:?Parring or Cutting of Benign Hyperkeratotic Lesion(s)?22833 ( >4 Lesions) - The Benign hyperkeratotic lesions, as described above were pared, and/or cut utilizing a sterile #15 blade, tissue nippers, and/or dremel.?Nail Reduction:?Nail Reduction?Trimming of dystrophic nails performed to reduce/remove overall nail length and girth, by manual and electrical means with use of a nail nipper and/or dremel, to more viable healthy nail plate or bed tissue 6-10 (G0127).? * Procedure Codes:?G0127 GABRIEL ING DYSTROPHIC NAILS ANY #, Modifiers: XS 13514 DEBRIDE NAIL, 1-5, Modifiers: XS 30004 TRIM SKIN LESIONS, OVER 4, Modifiers: XS * Preventive Medicine:? ??Counseling:?Discussion:?-13: Office or other outpatient visit for the evaluation and management of an established patient, which required a medically appropriate history and/or examination and LOW level of DECISION MAKING for: 1 STABLE ACUTE UNCOMPLICATED PROBLEM, 2 OR MORE MINOR PROBLEMS, OR 1 STABLE CHRONIC PROBLEM, THAT POSE(S) A LOW RISK FOR MORBIDITY/MORTALITY. The visit on the day of the encounter encompassed interpreting the data and educating the patient as to the nature of their condition, treatment options available according to their individual PMH, meds, allergies, and overall health/living conditions, as well as any potential risks or complications that may occur from a failure to adhere to, and participate in, the recommended course of therapy. The discussion included a complete verbal, and/or written explanation of the examination results, any x-rays taken, the proposed diagnosis, and outline of the treatment plan. A schedule for future care needs was also explained. The patient verbalized an understanding of the instructions at this time and agreed to be an active participant in their treatment. If the patient should think of any questions or concerns after the visit, I have encouraged the patient to call the office.?Tinea Pedis:?The patient was counseled on the diagnosis, potential etiologies, and treatment options for their skin condition. We discussed the risks and benefits of each option from performing no treatment, to utilizing OTC topical skin creams, prescription topical creams, customized compounded topical medications, and, if necessary, to utilize oral antifungal therapy. We discussed the advantages and disadvantages of each possible treatment and importance for adherence to all the recommended therapies for optimum success and avoid potential complications such as open sore/infection/possible hospitalization. We discussed the potential effectiveness of each topical preparation as well as each ones possible side effects and/or patient medication interactions if oral therapy is selected. Patient questions re: the advantages and disadvantages of each treatment choice, medication use/dosage, successful outcomes, and application consistency were reviewed and the patient verbalized that all answers were clearly understood. The patient was told they can help alleviate symptoms by utilizing moisture absorbant innersoles with activated charcoal and baking soda, applying antifungal sprays daily, aerating toe web spaces at night by putting cotton or lambs wool between the toes, alternating shoe gear daily if possible so they can dry out, changing socks at least once during the day, wearing well-ventilated shoes or sandals. The patient has decided to apply antifungal skin creams to their feet as directed. Rx was sent to their pharmacy at the time of visit.? * Follow Up:?3 Months * Images: * Sign off status: Completed true * Provider:?Chetna Dunbar DPM Date:?1 Generated for Chari donis/Aaliyah/Anaitting on:?03/27/2024 05:13 PM EST History and Physical Notes * HPI (History of Present Illness) Category Sub-Category Detail Notes Category Not es Skin problems Nature: scaling , redness Location: B/L Duration: several days Course: worse At Risk footcare Pt States Last PCP Visit: Date: 4 Examination Category Sub-Category Detail Notes Category Not es Neurological SENSORY: Neurological exa m demonstrates, reduced light touch sensation, reduced sharp/dull discrimination , reduced vibration sensation, in a stocking fashion, B/L, 5.07 monofilament test performed at plantar aspects of 5 varied sites per foot shows sensation, reduced, B/L Dermatologic SKIN FINDINGS: Skin shows sign( s) of, erythema, scaling, in a moccasin fashion, no fissure(s) present, B/L , Skin exam reveals Keratotic lesion(s) located at Plantar, TA, T5, SUB MTH (s), 1, 2, 3, B/L, Heel(s), B/L Orthopedic MUSCLE STRENGTH: 5/5 all groups in a symmetrical fashion, B/L General Examination GENERAL APPEARANCE: Reveals a pleasant, alert, well nourished, well-developed, well hydrated individual, who demonstrates proper attention to hygiene/body habitus, and is in no acute distress, Pt serves as own historian for office visit today ORIENTED: person, place, and t sa[place] Ophthalmology Referral DIABETES EYE EXAM Diabetic Retinopa thy Screening:: Yes Findings of Diabetic Eye Exam:: no retin opathy Vascular DP PULSES (B): 1/4, B/L PT PULSES (B): 2/4, B/L CAPILLARY FILL TIME: 3 secs. per digit. B/L TEMPERTURE GRADIENT (C): normal, B/L TROPHIC CONDITION-TEXTURE/ELASTICITY/TUR GOR/HAIR GROWTH (B): normal, B/L EDEMA (C): absent, B/L TELANGECTASIA: absent, B/L PIGMENTATION: normal, B/L Nails NAILS are: Elongated, overg rown, dystrophic, lytic, greater than 3mm thick, discolored and friable with crumbly malodorous subungual debris, with dull to no pain on palpation due to neuropathy, TA, T5, T6, T7, remaining nails are elongated, overgrown, dystrophic
--- OUTSIDE RECORDS SUMMARY | 2024-03-27 17:13 | XMS_ITS ---
Author Organization [facility] Address [address] [place] [address] Care Team Providers Care Desktop Specialist Name Role Phone Rigo Klein Primary Care Provider Unavailab Chetna Moncada Unavailable [phone] Velez Encounters Encounter Location Date Provider Diagnosis [address] [address] 03/09/2024 Chetna Dunbar Plan Of Treatment Next Appt Details Provider Name:Chetna ferrara, 03/30/2024 10:00:00 AM, [address] [place] [address], [phone], Progress Notes * Ramiro CLAYTON JrDOB:[birth year] (73 yo M)Acc No.[id number]:03/09/2024 Progress Note Patient:?Ramiro CLAYTON Jr Provider:?Chetna Dunbar DPM :1950???Age:73 Y???Sex:Male Bienvenido e:03/09/2024 Address:[address] [place] [address] Pcp:Rigo Klein Subjective: * Chief Complaints: * ???1. Dr Velez. * Medical History:? Objective: * Vitals:? Assessment: Plan: * Treatment: * Images: * The named appointment provid er may or may not be the originator of this progress note, and it is not deemed complete until electronically signed by the appointment provider. Sign off status: Pending * Provider:?Chetna Dunbar DPM Date:?0 03/09/2024 Generated for Chari donis/Aaliyah/Marcy on:?03/27/2024 05:13 PM EST
[2024-03-27] MEDS: Aspirin 81 MG TAB.CHEW 324 MG PO (17:15)
[2024-03-27 17:28] VITALS: BMI 35.0
[2024-03-27] MEDS: Heparin Sodium,Porcine/1/2NS 25,000 UNIT/250 ML IV.SOLN 12.04 UNIT IVCONT (18:03)
[2024-03-27 18:08] LABS: Hematocrit 42.1 % (42.0-52.0); Hemoglobin 14.5 g/dl (14.0-18.0); Mean Corpuscular HGB Conc 34.4 g/dl (31.0-36.0); Mean Corpuscular Hemoglobin 31.1 pg (27.0-33.0); Mean Corpuscular Volume 90.3 fL (80.0-98.0); Mean Platelet Volume 9.3 fL (9.4-12.4); Platelet Count 162 X10*3/uL (160-400); Red Blood Count 4.66 X10*6/uL (4.60-5.80); White Blood Count 6.3 X10*3/uL (4.8-10.8)
--- NOTE | 2024-03-27 18:11 | PC.NURSE ---
PTT collected @ 1759 Heparin drip started at 1803. Follow up PTT will be drawn in 6 hrs at 00:03--order placed. Dr. Ward at bedside to see Pt.
[2024-03-27 18:13] LABS: Prothrombin Time 11.1 SEC (10.9-12.4)
[2024-03-27 18:16] LABS: PTT Heparin Drip 37.9 SEC (53-77.9); PTT Heparin Drip 38.3 SEC (53-77.9)
--- NOTE | 2024-03-27 18:20 | PM.IMHP ---
History of Present Illness Date of Service: 03/27/24 Chief Complaint: Chest pressure 73-year-old male with a long history of type 2 diabetes, hypertension and hyperlipidemia presents to the emergency room today after having sneezed and feeling extremely dizzy. He says he usually has violent sneezing but never dizzy afterwards. He states when he felt dizzy and went into lay down in the bed for some time. He became extremely anxious and his gave him 1 of her Ativan with good results. The only pain he complains of is a ?muscle pull? across the top of his chest that has since resolved. In the emergency room initial troponin was 19 repeat troponin 191. He denies orthopnea PND and has no family history of cardiac disease Patient was started on heparin drip and will be admitted to telemetry Review of Systems Review of Systems: Admits to chest pressure like muscle pull across the top of his chest Denies shortness of breath Denies nausea vomiting diarrhea Denies fever chills PMFSH Medical History Normal colonoscopy Family History Father Lung cancer Lymphoma Mother Intestinal cancer Brother Substance use disorder Surgical History No pertinent past surgical history Social History Housing: House Alcohol intake: never Patient Tobacco Use Status: Former Tobacco user Smoked in Last 30 Days: No e-Cigarette/Vaping Use: Never Used Second Hand Smoke Exposure: No Use of substances other than those prescribed or required for medical reasons: No Advance Directives: No Advance Directives Information Provided: No Do you have a plan to hurt others: No Plan service: No Current occupational status: employed Cognitive needs: No Hearing needs: No Vision needs: Yes Meds Allergies Allergy/AdvReac Type Severity Reaction Status Date / Time penicillin V Allergy Unknown rash, Verified 03/27/24 10:37 swelling Active Medications: Current Medications Acetaminophen (Acetaminophen 325 Mg Tablet) 650 mg PO Q6H PRN PRN Reason: Pain, Mild 1-3,fever,headache Aspirin (Aspirin Enteric Coated 81 Mg Tablet.Dr) 81 mg PO DAILY RAFA Calcium Carbonate (Calcium Carbonate 750 Mg Tab.Chew) 750 mg PO Q4H PRN PRN Reason: Heartburn Glucose (Glucose Gel 15 Gm Gel..Gram.) 15 gm PO Q15M PRN; Protocol PRN Reason: per Hypoglycemia Standing Ord. Heparin Sodium (Porcine) (Heparin Sodium,Porcine 5,000 Unit/Ml Vial) 4,800 unit 40 unit/kg (4800 unit) IVPUSH PROTOCOL BOLUS PRN; Protocol PRN Reason: 40 unit/kg - Heparin Protocol Heparin Sodium (Porcine) (Heparin Sodium,Porcine 5,000 Unit/Ml Vial) 9,600 unit 80 unit/kg (9600 unit) IVPUSH PROTOCOL BOLUS PRN; Protocol PRN Reason: 80 unit/kg - Heparin Protocol Heparin Sodium/Sodium Chloride (Heparin Sodium,Porcine/1/2ns) 25,000 unit in 250 mls @ 0 mls/hr IVCONT .Q0M [facility]; Protocol Last Admin: 03/27/24 18:03 Dose: 10 units/kg/hr, 12.04 mls/hr Dextrose (D10) 250 mls @ 750 mls/hr IV Q15M PRN; Protocol PRN Reason: per Hypoglycemia Standing Ord. Insulin Human Lispro (Insulin Lispro 100 Unit/Ml 3 Ml Vial) [facility]; Protocol Magnesium Hydroxide (Milk Of Magnesia 30 Ml Oral.Susp) 30 ml PO DAILY PRN PRN Reason: Constipation Melatonin (Melatonin 3 Mg Tablet) 6 mg PO BEDTIME PRN PRN Reason: Insomnia Ondansetron HCl (Ondansetron Hcl 4 Mg/2 Ml Vial) 4 mg IVPUSH Q8H PRN PRN Reason: Nausea and Vomiting Sodium Chloride (0.9 % Sodium Chloride Flush 3 Ml Syringe) [facility] Medications ?Medication ?Instructions ?Recorded ?Confirmed ?Last Taken ?Type ascorbic acid (vitamin C) 500 mg 1,500 mg PO DAILY 03/27/24 03/27/24 03/27/24 History tablet (Vitamin C) cholecalciferol (vitamin D3) 50 50 mcg PO DAILY 03/27/24 03/27/24 03/27/24 History mcg (2,000 unit) tablet doxycycline hyclate 20 mg tablet 20 mg PO BID 03/27/24 Unknown History vitamin E 268 mg (400 unit) capsule 268 mg PO DAILY 03/27/24 03/27/24 03/27/24 History zinc sulfate 50 mg zinc (220 mg) 50 mg PO DAILY 03/27/24 03/27/24 03/27/24 History capsule Physical Exam Vital Signs and Narrative: Vital Signs: Last Vital Signs Temp 97.7 F 03/27/24 16:51 Pulse 71 03/27/24 16:51 Resp 12 03/27/24 16:51 BP 159/84 H 03/27/24 16:51 Pulse Ox 100 03/27/24 16:51 O2 Del Method Room Air 03/27/24 16:51 BMI result Body Mass Index 35.0 Const: Other: Awake alert no acute distress Resp: Other: Clear to auscultation bilaterally no rales rhonchi or wheezes Cardio: Other: No S4; positive S1-S2; no S3 2/6 systolic murmur best heard right sternal border 2nd intercostal space with radiation to carotid GI: Other: Soft nontender nondistended normoactive bowel sounds Neuro: Other: Cranial nerves 2-12 grossly intact as tested. Motor is 5/5 all extremities. Sensation is intact. Cognition appropriate. Gait not observed Extrem: Other: No edema bilaterally Results Labs 03/27/24 17:59 03/27/24 10:31 Labs: Laboratory Results - last 24 hr 03/27/24 03/27/24 03/27/24 10:31 16:05 17:59 MCV 88.8 90.3 MCH 31.3 31.1 MCHC 35.3 34.4 RDW 13.8 14.0 Plt Count 147 L 162 MPV 9.4 9.3 L Immature Gran % (Auto) 0.5 H Neut % (Auto) 71.0 Lymph % (Auto) 20.9 [place] % (Auto) 6.1 Eos % (Auto) 1.2 Baso % (Auto) 0.3 Lymph # (Auto) 1.2 [place] # (Auto) 0.4 Eos # (Auto) 0.1 Baso # (Auto) 0.0 Abs Immat Gran (auto) 0.03 Absolute Neuts (auto) 4.1 Absolute Nucleated RBC 0.000 0.000 Nucleated RBC % (auto) 0.0 0.0 PT 11.1 INR 1.0 aPTT Heparin Protocol 37.9 L Anion Gap 16 Estim Creat Clear Calc 78.0 Estimated GFR > 60 Random Glucose 260 H Calcium 9.8 Troponin I High Sens 14.9 191.0 H* D 03/27/24 17:59 MCV MCH MCHC RDW Plt Count MPV Immature Gran % (Auto) Neut % (Auto) Lymph % (Auto) [place] % (Auto) Eos % (Auto) Baso % (Auto) Lymph # (Auto) [place] # (Auto) Eos # (Auto) Baso # (Auto) Abs Immat Gran (auto) Absolute Neuts (auto) Absolute Nucleated RBC Nucleated RBC % (auto) PT INR aPTT Heparin Protocol 38.3 L Anion Gap Estim Creat Clear Calc Estimated GFR Random Glucose Calcium Troponin I High Sens Assessment and Plan (1) Non-ST elevated myocardial infarction (non-STEMI): Status: Acute (2) HTN (hypertension): Qualifiers: Hypertension type: essential hypertension Qualified Code(s): I10 - Essential (primary) hypertension Status: Acute (3) Type 2 diabetes mellitus: Qualifiers: Diabetes mellitus prison insulin use: without prison use Diabetes mellitus complication status: without complication Qualified Code(s): E11.9 - Type 2 diabetes mellitus without complications Status: Acute (4) HLD (hyperlipidemia): Qualifiers: Hyperlipidemia type: mixed hyperlipidemia Qualified Code(s): E78.2 - Mixed hyperlipidemia Status: Acute Plan 73-year-old male with a history of type 2 diabetes hypertension hyperlipidemia presents with vague upper chest pain after a forceful sneeze. He noted dizziness that resolved within 10 minutes after sneeze. In the emergency room troponin jumped from 19-190. Heparin drip started 1. Non ST-elevation MS -low-dose heparin drip -atorvastatin 80 mg daily/aspirin 81 mg daily -serial troponins -2D echo in a.m. to evaluate murmur -initial EKG with junctional rhythm however patient experiencing pauses on monitor will avoid beta-agapito at this time. Rate is acceptable at this time 2. Type 2 diabetes -hold metformin and glipizide at this time -restart after investigations complete (question dye load if catheterization) -lispro correctional scale -adjust as indicated 3. Hypertension -acceptable control on current therapies -we will continue lisinopril; avoid william blockers at this time -adjust as indicated 4. Hyperlipidemia -high dose atorvastatin as above Full code Heparin drip Patient will require at least 2 midnights going forward of inpatient stay for for IV heparin in light of non ST elevation MS. He will also requires specialty consultation. This can not be achieved a lesser acute setting Quality Stroke Does the patient have a stroke diagnosis?: No VTE Prior VTE?: No VTE Risk Level:: Medical - moderate - high VTE Device Contraindication: Treatment Not Indicated VTE Drug Contraindication: N/A - Med Ordered
--- NOTE | 2024-03-27 18:26 | PHA.MEDREC ---
Pharmacy Consult ? Medication Reconciliation Pharmacy has completed the medication reconciliation. Spoke to patient at bedside, confirmed meds and matched claim history
[2024-03-27] MEDS: Atorvastatin Calcium 80 MG TABLET PO (18:44)
[2024-03-27 19:04] LABS: B Type Natriuretic Peptide 76 pg/mL (<100)
[2024-03-27 20:00] VITALS: BP 136/76; PULSE 78; RESP 30; O2SAT 98
[2024-03-27 20:22] LABS: Glucose, Whole Blood 144 mg/dL (60-115)
[2024-03-27 20:27] VITALS: BP 135/77
[2024-03-27] MEDS: lisinopriL 20 MG TABLET PO (20:27)
--- NOTE | 2024-03-27 20:37 | PC.NURSE ---
denies chest pain, resting comfortably. mental status at baseline, speech clear. tolerating Po well--provided snack/brianna hector. waiting for bed assignment; cont to monitor and reinforce safety.
[2024-03-27 21:02] VITALS: BP 132/64; PULSE 71; RESP 12; TEMP 36.6; O2SAT 99
[2024-03-27 22:28] LABS: Troponin-I High Sensitivity 324.3 ng/L (<3.5-35.0)
--- NOTE | 2024-03-27 23:05 | PC.NURSE ---
hospitalist made aware of increase in trop 324.3. remains on hep drip@ 10u/kg/hr. no cp/dyspnea. resting comfortably. cont to monitor.
--- NOTE | 2024-03-28 00:25 | PC.NURSE ---
6hr post PTT initiation being drawn by lab.
[2024-03-28 00:50] LABS: PTT Heparin Drip 54.7 SEC (53-77.9)
[2024-03-28 01:13] VITALS: BP 108/52; PULSE 73; RESP 12; TEMP 36.6; O2SAT 96
--- NOTE | 2024-03-28 01:43 | PC.NURSE ---
12A result pf APTT=54, no rate change. next lab draw at 6A.
[2024-03-28 02:00] VITALS: BP 108/52; PULSE 74; RESP 18; O2SAT 98
[2024-03-28] MEDS: Omeprazole 20 MG CAPSULE.DR PO (05:55)
[2024-03-28 05:58] LABS: MANUAL DIFF FLAG NO
[2024-03-28 05:59] LABS: Basophils Percent Auto 0.3 % (0-2); Eosinophils Absolute Auto 0.2 X10*3/uL (0.0-0.4); Eosinophils Percent Auto 2.2 % (0-4); Hematocrit 41.5 % (42.0-52.0); Hemoglobin 14.4 g/dl (14.0-18.0); Imm Gran Abs Auto 0.02 X10*3/uL (0.00-0.03); Imm Gran Pct Auto 0.3 % (0.0-0.4); Lymphocytes Percent Auto 30.3 % (20-40); Mean Corpuscular HGB Conc 34.7 g/dl (31.0-36.0); Mean Corpuscular Hemoglobin 30.8 pg (27.0-33.0); Mean Corpuscular Volume 88.7 fL (80.0-98.0); Mean Platelet Volume 9.5 fL (9.4-12.4); Monocytes Absolute Auto 0.5 X10*3/uL (0.1-1.2); Monocytes Percent Auto 7.3 % (2-11); Neutrophils Percent Auto 59.6 % (45-73); Platelet Count 163 X10*3/uL (160-400); Red Blood Count 4.68 X10*6/uL (4.60-5.80); Red Cell Distribution Width 14.1 % (11.0-16.0); White Blood Count 6.7 X10*3/uL (4.8-10.8)
[2024-03-28 06:00] VITALS: PULSE 70; RESP 18; O2SAT 98
[2024-03-28 06:05] LABS: Prothrombin Time 11.3 SEC (10.9-12.4)
[2024-03-28 06:07] LABS: PTT Heparin Drip 33.1 SEC (53-77.9)
[2024-03-28 06:55] LABS: Troponin-I High Sensitivity 330.1 ng/L (<3.5-35.0)
[2024-03-28 06:59] LABS: Alanine Aminotransferase 46 U/L (0-40); Alkaline Phosphatase 48 U/L (39-117); Anion Gap 12 (12-20); Aspartate Amino Transferase 35 U/L (5-37); Bilirubin Total 0.7 mg/dL (0.0-1.0); Blood Urea Nitrogen 26 mg/dL (9-16); Calcium 9.3 mg/dL (8.4-10.2); Carbon Dioxide 28 mmol/L (22-29); Chloride 103 mmol/L (96-108); Creatinine Clr Calc Pharmacy 82.9; Estimated Glomerular Filt Rate > 60; Glucose Random 157 mg/dL (60-115); Potassium 4.1 mmol/L (3.3-5.1); Sodium 139 mmol/L (135-145); Total Protein 6.9 g/dL (6.5-8.0)
--- NOTE | 2024-03-28 07:00 | CA_ITS ---
Transthoracic Echocardiogram Patient (Last, First, Middle): Ramiro Rose Jr, E Gender: Male Date of : 1950 Age: 73 Procedure Date: 03/28/2024 Procedure Type: Transthoracic Echocardiogram Location: ER Height: 185.42 cm Weight: 120.2 kg BSA: 2.43 m2 Heart Rate: 76 bpm BP: 123 / 69 mmHg Nanotechnician: SB Referring MD: Christopher Ward DO Symptoms: NSTEMI Study Quality: Adequate/Contrast ECG Rhythm: Sinus Conclusions: - The left ventricular systolic function is hyperdynamic. The visually estimated ejection fraction is >70%. - There is severe septal asymmetric hypertrophy. (1.9cm). - There is severe calcification of the aortic valve. There is moderate aortic valve stenosis. - There is severe mitral annular calcification. Findings Procedure Information Contrast agent, definity, is being given per protocol without apparent complications. Left Ventricle Normal left ventricular cavity size. The left ventricular systolic function is hyperdynamic. The visually estimated ejection fraction is >70%. There is no evidence of regional wall motion abnormalities. Evidence suggests grade I (mild) diastolic dysfunction. There is severe septal asymmetric hypertrophy. Right Ventricle Normal right ventricular cavity size and systolic function. Atria The left atrium is moderately dilated. The right atrium is normal in size. Aortic Valve There is severe calcification of the aortic valve. There is moderate aortic valve stenosis. There is no aortic valve regurgitation. Dimensionless index 0.32. Mitral Valve There is severe mitral annular calcification. There is no mitral valve regurgitation. No significant mitral stenosis. Pulmonic Valve The pulmonic valve is likely normal. Tricuspid Valve There is trace tricuspid valve regurgitation. There is no evidence of pulmonary hypertension. Great Vessels There is mild dilatation of the ascending aorta measuring 3.90 cm. Venous The inferior vena cava is normal in size and collapses greater than 50% with inspiration. Pericardium/Pleural There is no evidence of pericardial effusion. Prior Study Comparison Changes noted compared to prior study dated: 07/31/2017. Progression of valvular abnormalities. Measurements 2D Linear Measurements IVSd: 1.91 0.6-0.9/0.6-1.0 cm LVIDd: 4.59 3.9-5.3/4.2-5.9 cm LVIDd Index: 1.89 2.4-3.2/2.2-3.1 cm/m2 LVIDs: 2.92 2.0-3.6 cm LVPWd: 0.88 0.7-1.1 cm LA Diam: 4.80 2.7-3.8/3.0-4.0 cm LAIDs Index: 1.98 1.5-2.3 cm/m2 LV Mass: 317.11 67-162/88-224 g LV Mass Index: 130.50 43-95/49-115 g/m2 LVOT Diam: 2.40 3.0+(-)1.3 cm 2D Systolic Function EF 4C: 71.60 >55% EF 2C: 77.60 >55% EF BiP: 75.20 >55% Mitral Valve MV VTI: 0.46 MV Pk Blake: 1.60 MV Mn Blake: 1.01 MV Pk Grad: 10.00 MV Mn Grad: 5.00 MV Pk E: 1.18 MV PK A: 1.60 MV Decel Time: 405.00 E/A: 0.70 E'Lateral: 6.64 E'Medial: 4.13 E/E' Med: 28.60 E/E' Lat: 17.80 PHT: 119.00 MVA PHT: 1.85 MVA Continuity: 2.60 Decel Bullock: 2.92 Aortic Valve AoV Pk Blake: 3.97 AoV Mn Blake: 2.76 AoV VTI: 0.78 AoV Pk Grad: 63.00 Aov Mn Grad: 35.00 DEWAYNE Cont.VTI: 1.52 LVOT LVOT Pk Blake: 1.29 LVOT Mn Blake: 0.88 LVOT VTI: 0.26 LVOT Pk Grad: 7.00 LVOT Mn Grad: 4.00 LVOT Diam: 2.40 LVOT Area: 4.52 Diastolic Function MV Pk E: 1.18 MV Pk A: 1.60 E/A: 0.70 E'Medial: 4.13 E/E' Med: 28.60 E' Laterial: 6.64 E/E' Lat: 17.80 Right Ventricle TAPSE (mm): 26.00 TVS' Blake: 15.00 Tricuspid Valve TR Pk Blake: 2.00 TR Pk Grad: 16.00 RA Press: 8.00 RVSP: 24.00 Great Vessels Aorta Sinus of Valsalva: 3.80 2.0-3.5 cm Ao Asc: 3.90 2.1-3.4 cm Pulmonary Valve PV Pk Blake: 1.02 Peak PV Grad: 4.00 Updated in Other Vendor System with Status of Final Ar Amin MD electronically signed on 03/28/2024 11:01:35 AM with status of Final
[2024-03-28] MEDS: Heparin Sodium,Porcine 5,000 UNIT/ML VIAL 9600 UNIT IVPUSH (07:14)
[2024-03-28 07:48] LABS: Glucose, Whole Blood 189 mg/dL (60-115)
[2024-03-28 08:51] VITALS: BP 123/69; PULSE 75; RESP 14; O2SAT 97
[2024-03-28] MEDS: Ascorbic Acid 500 MG TABLET 1500 MG PO (08:54)
[2024-03-28] MEDS: lisinopriL 20 MG TABLET PO (08:54)
[2024-03-28] MEDS: Atorvastatin Calcium 80 MG TABLET PO (08:54)
[2024-03-28] MEDS: Cholecalciferol (Vitamin D3) 25 MCG TABLET 50 MCG PO (08:55)
[2024-03-28] MEDS: Aspirin Enteric Coated 81 MG TABLET.DR PO (08:55)
[2024-03-28 11:14] LABS: Troponin-I High Sensitivity 231.9 ng/L (<3.5-35.0)
--- NOTE | 2024-03-28 11:14 | PM.CNCAR ---
History of Present Illness History of Present Illness Date of Service: 03/28/24 Chief complaint: NSTEMI Narrative: This is a cardiology consultation regarding non ST-elevation myocardial infarction. Multiple cardiovascular risk factors including diabetes, hypertension, dyslipidemia. He apparently sneezed and after that, developed a discomfort across the upper chest. He was also dizzy at that time. Somewhat atypical presentation but it seems that troponins were checked and they were elevated and he is being treated as NSTEMI. Has been on heparin drip overnight. Currently, he states he feels okay. In the past, no exertional anginal-type symptoms and he is fairly active according to him without any limitations. He can do yard work, etc., and does not get chest pains. Review of Systems Review of Systems: Yes all other systems are reviewed and are negative Constitutional: Constitutional: Reports as per HPI and Reports no additional constitutional complaints Eyes: Eyes: Reports as per HPI and Denies no additional eye complaints ENT: Denies system reviewed and no additional complaints, except as documented and Reports as per HPI Cardiovascular: Cardiovascular: Reports as per HPI, Reports no additional cardiovascular complaints, Denies acrocyanosis, Denies cool extremities, Reports chest pain, Denies leg edema, Denies lightheadedness, Denies palpitations and Denies dyspnea Respiratory: Respiratory: Reports as per HPI, Denies no additional respiratory complaints and Denies dyspnea Gastrointestinal: Gastrointestinal: Reports as per HPI and Denies no additional gastrointestinal complaints Genitourinary: Genitourinary: Reports no additional male genitourinary complaints and Reports as per HPI Musculoskeletal: Musculoskeletal: Reports no additional musculoskeletal complaints and Reports as per HPI Integumentary/Breasts: Skin/Breast: Reports system reviewed and no additional complaints, except as docu Neurologic: Reports system reviewed and no additional complaints, except as documented and Reports as per HPI Psychiatric: Psychiatric: Reports no additional psychiatric complaints and Reports as per HPI Endocrine: Endocrine: Reports no additional endocrine complaints, Reports as per HPI and Denies palpitations Hematologic/Lymphatic: Hematologic/Lymphatic: Reports no additional hematologic/lymphatic complaints and Reports as per HPI Allergic/Immunologic: Allergic/Immunologic: Reports no additional allergic/immunologic complaints and Reports as per HPI PMFSH Past Medical History Medical History Normal colonoscopy Family History Family History Father Lung cancer Lymphoma Mother Intestinal cancer Brother Substance use disorder Surgical History Surgical History No pertinent past surgical history Social History Social History Household Members: Family Housing: House Do you presently have visiting nurse or other home services: No Alcohol intake: never Patient Tobacco Use Status: Former Tobacco user Smoked in Last 30 Days: No e-Cigarette/Vaping Use: Never Used Second Hand Smoke Exposure: No Use of substances other than those prescribed or required for medical reasons: No Have you been hit, kicked, punched, or otherwise hurt by someone within the past year? If so, by whom?: No Do you feel safe in your current relationship?: Yes Is there a partner from a previous relationship who is making you feel unsafe now?: No Are you made to feel afraid or neglected: No Spiritual Healthcare Practices: adventist Advance Directives: No Advance Directives Information Provided: No Do you have a plan to hurt others: No Plan Recently lost weight without trying: Yes How much weight loss: 2-13 pounds Eating poorly because of decreased appetite: No Nutrition screen score: 3 Nutrition Risks: No Nutritional Risk Poor oral hygiene: No service: No Current occupational status: employed Cognitive needs: No Hearing needs: No Vision needs: Yes Meds Allergies Allergy/AdvReac Type Severity Reaction Status Date / Time penicillin V Allergy Unknown rash, Verified 03/27/24 10:37 swelling Active Medications: Current Medications Acetaminophen (Acetaminophen 325 Mg Tablet) 650 mg PO Q6H PRN PRN Reason: Pain, Mild 1-3,fever,headache Ascorbic Acid (Ascorbic Acid 500 Mg Tablet) 1,500 mg PO DAILY [facility] Last Admin: 03/28/24 08:54 Dose: 1,500 mg Aspirin (Aspirin Enteric Coated 81 Mg Tablet.Dr) 81 mg PO DAILY [facility] Last Admin: 03/28/24 08:55 Dose: 81 mg Atorvastatin Calcium (Atorvastatin Calcium 80 Mg Tablet) 80 mg PO DAILY [facility] Last Admin: 03/28/24 08:54 Dose: 80 mg Calcium Carbonate (Calcium Carbonate 750 Mg Tab.Chew) 750 mg PO Q4H PRN PRN Reason: Heartburn Glucose (Glucose Gel 15 Gm Gel..Gram.) 15 gm PO Q15M PRN; Protocol PRN Reason: per Hypoglycemia Standing Ord. Heparin Sodium (Porcine) (Heparin Sodium,Porcine 5,000 Unit/Ml Vial) 4,800 unit 40 unit/kg (4800 unit) IVPUSH PROTOCOL BOLUS PRN; Protocol PRN Reason: 40 unit/kg - Heparin Protocol Heparin Sodium (Porcine) (Heparin Sodium,Porcine 5,000 Unit/Ml Vial) 9,600 unit 80 unit/kg (9600 unit) IVPUSH PROTOCOL BOLUS PRN; Protocol PRN Reason: 80 unit/kg - Heparin Protocol Last Admin: 03/28/24 07:14 Dose: 9,600 unit Heparin Sodium/Sodium Chloride (Heparin Sodium,Porcine/1/2ns) 25,000 unit in 250 mls @ 0 mls/hr IVCONT .Q0M [facility]; Protocol Last Titration: 03/28/24 07:23 Dose: 14 units/kg/hr, 16.86 mls/hr Dextrose (D10) 250 mls @ 750 mls/hr IV Q15M PRN; Protocol PRN Reason: per Hypoglycemia Standing Ord. Insulin Human Lispro (Insulin Lispro 100 Unit/Ml 3 Ml Vial) 0 unit SUBCUT QIDACHS [facility]; Protocol Last Admin: 03/28/24 07:46 Dose: Not Given Lisinopril (Lisinopril 20 Mg Tablet) 20 mg PO BID [facility]; Protocol Last Admin: 03/28/24 08:54 Dose: 20 mg Magnesium Hydroxide (Milk Of Magnesia 30 Ml Oral.Susp) 30 ml PO DAILY PRN PRN Reason: Constipation Melatonin (Melatonin 3 Mg Tablet) 6 mg PO BEDTIME PRN PRN Reason: Insomnia Omeprazole (Omeprazole 20 Mg Capsule.Dr) 20 mg PO DAILY@0630 [facility] Last Admin: 03/28/24 05:55 Dose: 20 mg Ondansetron HCl (Ondansetron Hcl 4 Mg/2 Ml Vial) 4 mg IVPUSH Q8H PRN PRN Reason: Nausea and Vomiting Sodium Chloride (0.9 % Sodium Chloride Flush 3 Ml Syringe) 3 ml IVFLUSH QSHIFT [facility] Last Admin: 03/28/24 07:47 Dose: Not Given Vitamin D (Cholecalciferol (Vitamin D3) 25 Mcg Tablet) 50 mcg PO DAILY [facility] Last Admin: 03/28/24 08:55 Dose: 50 mcg Home Medications ?Medication ?Instructions ?Recorded ?Confirmed ?Last Taken ?Type ascorbic acid (vitamin C) 500 mg 1,500 mg PO DAILY 03/27/24 03/27/24 03/27/24 History tablet (Vitamin C) cholecalciferol (vitamin D3) 50 50 mcg PO DAILY 03/27/24 03/27/24 03/27/24 History mcg (2,000 unit) tablet doxycycline hyclate 20 mg tablet 20 mg PO BID 03/27/24 03/27/24 03/27/24 History vitamin E 268 mg (400 unit) capsule 268 mg PO DAILY 03/27/24 03/27/24 03/27/24 History zinc sulfate 50 mg zinc (220 mg) 50 mg PO DAILY 03/27/24 03/27/24 03/27/24 History capsule Physical Exam Vital Signs: Vital Signs: Last Vital Signs Temp 98 F 03/28/24 01:13 Pulse 75 03/28/24 08:51 Resp 14 03/28/24 08:51 BP 123/69 03/28/24 08:51 Pulse Ox 97 03/28/24 08:51 O2 Del Method Room Air 03/28/24 08:51 O2 Flow Rate 2 03/28/24 06:00 BMI result Body Mass Index 35.0 Const: General: comfortable and no acute distress Orientation/consciousness: patient oriented x3 HEENT: Other: Unremarkable Head: Yes normal to inspection Neck: Neck: Yes normal visual inspection Chest: Chest palpation & inspection: normal inspection of the chest Resp: Auscultation: clear to auscultation bilaterally Cardio: Palpation: normal PMI Heart sounds: S1 normal heart sound present, S2 normal heart sound present, no gallops, Murmur heart sound present systolic II/ and at the right sternal border and no rubs GI: Palpation (GI): Soft to palpation Back/Spine/Pelvis: Other: unremarkable Skin: General skin exam: no rashes or lesions noted Neuro: General: patient oriented x3 Extrem: General: Yes normal to inspection Psych: Mental Status: mental status grossly normal Objective Labs and Meds 03/28/24 05:50 03/28/24 06:22 Lab results: Laboratory Results - last 24 hr 03/27/24 03/27/24 03/27/24 10:31 16:05 17:59 WBC 6.3 RBC 4.66 Hgb 14.5 Hct 42.1 MCV 90.3 MCH 31.1 MCHC 34.4 RDW 14.0 Plt Count 162 MPV 9.3 L Immature Gran % (Auto) Neut % (Auto) Lymph % (Auto) [place] % (Auto) Eos % (Auto) Baso % (Auto) Lymph # (Auto) [place] # (Auto) Eos # (Auto) Baso # (Auto) Abs Immat Gran (auto) Absolute Neuts (auto) Absolute Nucleated RBC 0.000 Nucleated RBC % (auto) 0.0 PT 11.1 INR 1.0 aPTT Heparin Protocol 37.9 L Sodium Potassium Chloride Carbon Dioxide Anion Gap BUN Creatinine Estim Creat Clear Calc Estimated GFR POC Glucose Random Glucose Calcium Total Bilirubin AST ALT Alkaline Phosphatase Troponin I High Sens 14.9 191.0 H* D B-Natriuretic Peptide Total Protein Albumin 03/27/24 03/27/24 03/27/24 17:59 20:17 22:01 WBC RBC Hgb Hct MCV MCH MCHC RDW Plt Count MPV Immature Gran % (Auto) Neut % (Auto) Lymph % (Auto) [place] % (Auto) Eos % (Auto) Baso % (Auto) Lymph # (Auto) [place] # (Auto) Eos # (Auto) Baso # (Auto) Abs Immat Gran (auto) Absolute Neuts (auto) Absolute Nucleated RBC Nucleated RBC % (auto) PT INR aPTT Heparin Protocol 38.3 L Sodium Potassium Chloride Carbon Dioxide Anion Gap BUN Creatinine Estim Creat Clear Calc Estimated GFR POC Glucose 144 H Random Glucose Calcium Total Bilirubin AST ALT Alkaline Phosphatase Troponin I High Sens 324.3 H* D B-Natriuretic Peptide 76 Total Protein Albumin 03/28/24 03/28/24 03/28/24 00:24 05:50 06:22 WBC 6.7 RBC 4.68 Hgb 14.4 Hct 41.5 L MCV 88.7 MCH 30.8 MCHC 34.7 RDW 14.1 Plt Count 163 MPV 9.5 Immature Gran % (Auto) 0.3 Neut % (Auto) 59.6 Lymph % (Auto) 30.3 [place] % (Auto) 7.3 Eos % (Auto) 2.2 Baso % (Auto) 0.3 Lymph # (Auto) 2.0 [place] # (Auto) 0.5 Eos # (Auto) 0.2 Baso # (Auto) 0.0 Abs Immat Gran (auto) 0.02 Absolute Neuts (auto) 4.0 Absolute Nucleated RBC 0.000 Nucleated RBC % (auto) 0.0 PT 11.3 INR 1.0 aPTT Heparin Protocol 54.7 D 33.1 L D Sodium 139 Potassium 4.1 Chloride 103 Carbon Dioxide 28 Anion Gap 12 BUN 26 H Creatinine 1.11 Estim Creat Clear Calc 82.9 Estimated GFR > 60 POC Glucose Random Glucose 157 H Calcium 9.3 Total Bilirubin 0.7 AST 35 ALT 46 H Alkaline Phosphatase 48 Troponin I High Sens 330.1 H* B-Natriuretic Peptide Total Protein 6.9 Albumin 4.0 03/28/24 03/28/24 07:43 10:36 WBC RBC Hgb Hct MCV MCH MCHC RDW Plt Count MPV Immature Gran % (Auto) Neut % (Auto) Lymph % (Auto) [place] % (Auto) Eos % (Auto) Baso % (Auto) Lymph # (Auto) [place] # (Auto) Eos # (Auto) Baso # (Auto) Abs Immat Gran (auto) Absolute Neuts (auto) Absolute Nucleated RBC Nucleated RBC % (auto) PT INR aPTT Heparin Protocol Sodium Potassium Chloride Carbon Dioxide Anion Gap BUN Creatinine Estim Creat Clear Calc Estimated GFR POC Glucose 189 H Random Glucose Calcium Total Bilirubin AST ALT Alkaline Phosphatase Troponin I High Sens 231.9 H* B-Natriuretic Peptide Total Protein Albumin ECG Interpretation: EKG with underlying sinus rhythm at 85/Min; right bundle-branch block. Right bundle-branch block not seen in the previous EKG from 2009. Assessment and Plan (1) Non-ST elevated myocardial infarction (non-STEMI): Status: Acute Plan In the echocardiogram, hyperdynamic LVEF. Severe septal hypertrophy. Moderate aortic stenosis with severe mitral annular calcification. No overt wall motion findings. High sensitivity troponin levels have been going up. Started 14.9, peak 324. Currently 231. Atypical presentation as he 1st started sneezing and then developed upper chest pain but clearly has positive troponins. Multiple risk factors as well. Plan to proceed with a diagnostic catheterization. Keep on IV heparin drip. Aspirin. Statins. Transferred to [facility]. Patient agrees. Procedures Date of Service Date of Service: 03/28/24
--- NOTE | 2024-03-28 12:11 | P.DS_ITS ---
DS: Providers Provider Date of Service: 03/28/24 Date of admission: 03/27/24 17:46 Date of discharge: 03/28/24 Primary care physician: Rigo Klein PA-C Consults: 03/28/24 10:37 Consult to Cardiology Routine Consulting Provider: [facility] Reason for consultation: NSTEMI Has provider been notified: Yes DS: Diagnosis Discharge Diagnosis (1) Non-ST elevated myocardial infarction (non-STEMI): Status: Acute DS: Summary Hospital Course Hospital Course: 73-year-old male with a long history of type 2 diabetes, hypertension and hyperlipidemia presents to the emergency room today after having sneezed and feeling extremely dizzy. He says he usually has violent sneezing but never dizzy afterwards. He states when he felt dizzy and went into lay down in the bed for some time. He became extremely anxious and his gave him 1 of her Ativan with good results. The only pain he complains of is a ?muscle pull? across the top of his chest that has since resolved. In the emergency room initial troponin was 19 repeat troponin 191. He denies orthopnea PND and has no family history of cardiac disease Patient was started on heparin drip and will b e admitted to telemetry Time Attestation Discharge Coordination Time (in mins): 35 Quality: Safe Use of Opioids Does Pt have an Active Cancer Diagnosis on the Problem List?: No Quality: Stroke Does the patient have a stroke diagnosis?: No Physical Exam Vital Signs: Vital Signs: Last Vital Signs Temp 98 F 03/28/24 01:13 Pulse 75 03/28/24 08:51 Resp 14 03/28/24 08:51 BP 123/69 03/28/24 08:51 Pulse Ox 97 03/28/24 08:51 O2 Del Method Room Air 03/28/24 08:51 O2 Flow Rate 2 03/28/24 06:00 BMI result Body Mass Index 35.0 Const: Other: Awake alert no acute distress Resp: Other: Clear to auscultation bilaterally no rales rhonchi or wheezes Cardio: Other: No S4; positive S1-S2; no S3 2/6 systolic murmur best heard right sternal border 2nd intercostal space with radiation to carotid GI: Other: Soft nontender nondistended normoactive bowel sounds Neuro: Other: Cranial nerves 2-12 grossly intact as tested. Motor is 5/5 all extremities. Sensation is intact. Cognition appropriate. Gait not observed Extrem: Other: No edema bilaterally DS: Data Data Completed and Pending Labs on day of discharge: Laboratory Results - last 24 hr 03/27/24 03/27/24 03/27/24 16:05 17:59 17:59 WBC 6.3 RBC 4.66 Hgb 14.5 Hct 42.1 MCV 90.3 MCH 31.1 MCHC 34.4 RDW 14.0 Plt Count 162 MPV 9.3 L Immature Gran % (Auto) Neut % (Auto) Lymph % (Auto) [place] % (Auto) Eos % (Auto) Baso % (Auto) Lymph # (Auto) [place] # (Auto) Eos # (Auto) Baso # (Auto) Abs Immat Gran (auto) Absolute Neuts (auto) Absolute Nucleated RBC 0.000 Nucleated RBC % (auto) 0.0 PT 11.1 INR 1.0 aPTT Heparin Protocol 37.9 L 38.3 L Sodium Potassium Chloride Carbon Dioxide Anion Gap BUN Creatinine Estim Creat Clear Calc Estimated GFR POC Glucose Random Glucose Calcium Total Bilirubin AST ALT Alkaline Phosphatase Troponin I High Sens 191.0 H* D B-Natriuretic Peptide 76 Total Protein Albumin 03/27/24 03/27/24 03/28/24 20:17 22:01 00:24 WBC RBC Hgb Hct MCV MCH MCHC RDW Plt Count MPV Immature Gran % (Auto) Neut % (Auto) Lymph % (Auto) [place] % (Auto) Eos % (Auto) Baso % (Auto) Lymph # (Auto) [place] # (Auto) Eos # (Auto) Baso # (Auto) Abs Immat Gran (auto) Absolute Neuts (auto) Absolute Nucleated RBC Nucleated RBC % (auto) PT INR aPTT Heparin Protocol 54.7 D Sodium Potassium Chloride Carbon Dioxide Anion Gap BUN Creatinine Estim Creat Clear Calc Estimated GFR POC Glucose 144 H Random Glucose Calcium Total Bilirubin AST ALT Alkaline Phosphatase Troponin I High Sens 324.3 H* D B-Natriuretic Peptide Total Protein Albumin 03/28/24 03/28/24 03/28/24 05:50 06:22 07:43 WBC 6.7 RBC 4.68 Hgb 14.4 Hct 41.5 L MCV 88.7 MCH 30.8 MCHC 34.7 RDW 14.1 Plt Count 163 MPV 9.5 Immature Gran % (Auto) 0.3 Neut % (Auto) 59.6 Lymph % (Auto) 30.3 [place] % (Auto) 7.3 Eos % (Auto) 2.2 Baso % (Auto) 0.3 Lymph # (Auto) 2.0 [place] # (Auto) 0.5 Eos # (Auto) 0.2 Baso # (Auto) 0.0 Abs Immat Gran (auto) 0.02 Absolute Neuts (auto) 4.0 Absolute Nucleated RBC 0.000 Nucleated RBC % (auto) 0.0 PT 11.3 INR 1.0 aPTT Heparin Protocol 33.1 L D Sodium 139 Potassium 4.1 Chloride 103 Carbon Dioxide 28 Anion Gap 12 BUN 26 H Creatinine 1.11 Estim Creat Clear Calc 82.9 Estimated GFR > 60 POC Glucose 189 H Random Glucose 157 H Calcium 9.3 Total Bilirubin 0.7 AST 35 ALT 46 H Alkaline Phosphatase 48 Troponin I High Sens 330.1 H* B-Natriuretic Peptide Total Protein 6.9 Albumin 4.0 03/28/24 10:36 WBC RBC Hgb Hct MCV MCH MCHC RDW Plt Count MPV Immature Gran % (Auto) Neut % (Auto) Lymph % (Auto) [place] % (Auto) Eos % (Auto) Baso % (Auto) Lymph # (Auto) [place] # (Auto) Eos # (Auto) Baso # (Auto) Abs Immat Gran (auto) Absolute Neuts (auto) Absolute Nucleated RBC Nucleated RBC % (auto) PT INR aPTT Heparin Protocol Sodium Potassium Chloride Carbon Dioxide Anion Gap BUN Creatinine Estim Creat Clear Calc Estimated GFR POC Glucose Random Glucose Calcium Total Bilirubin AST ALT Alkaline Phosphatase Troponin I High Sens 231.9 H* B-Natriuretic Peptide Total Protein Albumin Discharge Plan Discharge Anticipated Discharge Date/Time: 03/28/24 12:05 Patient Disposition: Xfer Acute Care Hospital Discharge Diagnosis: NSTEMI Referrals: Rigo Klein PA-C [Primary Care Provider] - 1 Week Discharge Medications: New heparin(porcine) in 0.45% NaCl 25,000 unit/250 mL Parenteral Solution 25,000 unit continuous IV infusion .Q0M Qty: 6000 0RF atorvastatin 80 mg Tablet 80 mg PO DAILY Qty: 30 0RF aspirin 81 mg Tablet,Delayed Release (Dr/Ec) 81 mg PO DAILY Qty: 30 0RF insulin lispro [Admelog U-100 Insulin lispro] 100 unit/mL Solution See Protocol subcut QIDACHS Qty: 10 0RF Protocol: Insulin Correction Scale Less than or equal to 110 ---- Give (units): 0 111 to 150 Give (units): 0 151 to 200 Give (units): 2 201 to 250 Give (units): 4 251 to 300 Give (units): 6 301 to 350 Give (units): 8 Greater than 350 Give (units): 10 Call MD if Blood Glucose > : 350 heparin (porcine) 5,000 unit/mL Solution 9,600 unit IVPUSH PROTOCOL BOLUS PRN (Reason: 80 Unit/Kg - Heparin Protocol) Qty: 100 0RF heparin (porcine) 5,000 unit/mL Solution 4,800 unit IVPUSH PROTOCOL BOLUS PRN (Reason: 40 Unit/Kg - Heparin Protocol) Qty: 100 0RF Continued lisinopril 20 mg tablet 20 mg PO BID Qty: 180 2RF lansoprazole 30 mg capsule,delayed release(DR/EC) 30 mg PO DAILY 90 Days Qty: 90 2RF lorazepam 0.5 mg tablet 0.5 mg PO Q12H PRN (Reason: anxiety) 4 Days Qty: 8 0RF Discontinued hydrochlorothiazide 25 mg tablet 25 mg PO DAILY Qty: 90 2RF metformin 1,000 mg tablet 1,000 mg PO BID Qty: 180 2RF glipizide 10 mg tablet 10 mg PO BID 90 Days Qty: 180 2RF doxycycline hyclate 20 mg tablet 20 mg PO BID ascorbic acid (vitamin C) [Vitamin C] 500 mg Tablet 1,500 mg PO DAILY vitamin E 268 mg (400 unit) Capsule 268 mg PO DAILY zinc sulfate 50 mg zinc (220 mg) Capsule 50 mg PO DAILY cholecalciferol (vitamin D3) 50 mcg (2,000 unit) Tablet 50 mcg PO DAILY (DME) blood pressure test kit-large Kit See Rx Instructions .Route Qty: 1 0RF Rx Instructions: As directed Discharge Orders: Discharge Order (Routine); Ordered 03/28/24 Ordered By: Christopher Ward Diet: Advance to usual diet Activity on Discharge: As tolerated Stand Alone Forms: Patient Portal Discharge page Print Language: Mongolian Care Plan Goals: Continue heparin drip and other meds as outlined on transfer sheet Health Concerns: Transferred to [facility] for catheterization Plan of Treatment: As per receiving facility Assessment: See discharge summary
[2024-03-28 12:56] LABS: PTT Heparin Drip > 200.0 SEC (53-77.9)
[2024-03-28 13:23] LABS: Glucose, Whole Blood 221 mg/dL (60-115)
[2024-03-28] MEDS: Heparin Sodium,Porcine/1/2NS 25,000 UNIT/250 ML IV.SOLN 16.86 UNIT IVCONT (13:24)
[2024-03-28] MEDS: Insulin Lispro 100 UNIT/ML 3 ML VIAL SUBCUT ×2 (13:26→18:42)
[2024-03-28 14:02] LABS: Troponin-I High Sensitivity 203.9 ng/L (<3.5-35.0)
[2024-03-28 14:02] LABS: PTT Heparin Drip 130.5 SEC (53-77.9)
--- NOTE | 2024-03-28 14:11 | PC.NURSE ---
heparin paused at 1356 pending redraw PTT d/t concern for possible contaminated draw, recheck PTT 130.5, redraw scheduled an hour after initial pause.
--- NOTE | 2024-03-28 15:19 | PC.NURSE ---
pt awaiting transfer for NSTEMI
[2024-03-28 15:46] LABS: PTT Heparin Drip 48.2 SEC (53-77.9)
[2024-03-28] MEDS: 0.9 % Sodium Chloride Flush 3 ML SYRINGE IVFLUSH ×2 (15:53)
[2024-03-28 18:23] VITALS: BP 131/75; PULSE 77; RESP 11; TEMP 36.6; O2SAT 96
[2024-03-28 18:29] LABS: Glucose, Whole Blood 207 mg/dL (60-115)
--- NOTE | 2024-03-28 18:37 | PC.NURSE ---
attempted to call nurse to nurse report to [facility], per RN she will call back
--- NOTE | 2024-03-28 18:56 | PC.NURSE ---
nurse to nurse report given to [facility] RN
--- NOTE | 2024-03-28 19:13 | PC.NURSE ---
[facility] here for transport
== END 2024-03-28 19:50 | disposition short-term general hospital (02) | DRG 282 ==
LOC: HO.ED 17:25 → HO.EDOVER 18:00
PROVIDERS: Nurse Practitioner Family; Admitting Provider Hospitalist; Emergency Provider Emergency Medicine; PCP Physician Assistant; Visit Provider Hospitalist
DX: I21.4 Non-ST elevation (NSTEMI) myocardial infarction (principal); I35.0 Nonrheumatic aortic (valve) stenosis; I34.81 Nonrheumatic mitral (valve) annulus calcification; Z87.891 Personal history of nicotine dependence; Z79.899 Other long term (current) drug therapy
CPT/HCPCS: 36415; 71045; 80048; 80053; 82947; 83880; 84484; 85025; 85027; 85610; 85730; 93005; 93306; 99285; J1644; Q9957

== ENCOUNTER → 2024-03-27 17:24 | Outpatient (BNV) | payer MEDICARE, OTHER, SELFPAY | PROVIDERS: Admitting Provider Hospitalist; Emergency Provider Emergency Medicine; PCP Physician Assistant; Visit Provider Radiology Neuroradiology | DX: R07.9 Chest pain, unspecified (principal) | CPT/HCPCS: 71045 ==

== ENCOUNTER → 2024-03-27 17:46 | Outpatient (BNV) | payer MEDICARE, OTHER, SELFPAY | PROVIDERS: Admitting Provider Hospitalist; Emergency Provider Emergency Medicine; PCP Physician Assistant; Visit Provider Internal Medicine | DX: I21.4 Non-ST elevation (NSTEMI) myocardial infarction (principal) | CPT/HCPCS: 93010; 99223 ==

== ENCOUNTER → 2024-03-27 17:46 | Outpatient (BNV) | payer MEDICARE, OTHER, SELFPAY | PROVIDERS: Admitting Provider Hospitalist; Emergency Provider Emergency Medicine; PCP Physician Assistant; Visit Provider Hospitalist | DX: I21.4 Non-ST elevation (NSTEMI) myocardial infarction (principal) | CPT/HCPCS: 99223; 99239 ==

== ENCOUNTER → 2024-03-29 23:59 | Outpatient (BNV) | payer MEDICARE, OTHER, SELFPAY | PROVIDERS: PCP Physician Assistant; Visit Provider Internal Medicine Cardiovascular Disease | DX: I21.4 Non-ST elevation (NSTEMI) myocardial infarction (principal) | CPT/HCPCS: 93458; 99152 ==

== ENCOUNTER 2024-05-02 14:16 | Outpatient (AMB) | payer MEDICARE, OTHER, SELFPAY ==
[2024-05-02 14:19] VITALS: BP 130/78; PULSE 78; BMI 34.6
--- NOTE | 2024-05-02 14:19 | MHC.OFFVIS ---
Vital Signs 05/02/24 14:19 Height 6 ft 1 in Weight 262 lb 5.601 oz BMI 34.6 BP 130/78 Blood Pressure Location Lt brachial Position Sitting Pulse 78 Pulse Source Pulse Oximeter Intake Visit Reasons: ED follow up /Cardiac cath Allergies penicillin V Allergy (Unknown, Verified 03/27/24 10:37) rash, swelling Medication List - Last Reconciled 05/02/24 by Ar Amin MD aspirin 81 mg PO DAILY atorvastatin 80 mg PO DAILY glipizide 10 mg PO BID lansoprazole 30 mg PO DAILY PRN lisinopril 20 mg PO BID lorazepam 0.5 mg PO Q12H PRN 4 days metformin 1,000 mg PO BID HPI Comments Details: Ramiro returns for follow-up regarding non ST elevation myocardial infarction. Multiple cardiovascular risk factors including diabetes, hypertension, dyslipidemia. He presented after sneezing and in that instance, developed a discomfort across the upper chest. In that instance, troponins were checked and they were abnormal. Echocardiogram showed hyperdynamic LVEF and moderate aortic stenosis. He was sent for a diagnostic catheterization which showed coronary disease, but no interventions performed. Overall, he states he feels okay. No clear-cut cardiac symptoms. [facility] Medical History (Updated 05/02/24 @ 15:21 by Ar Amin MD) HTN (hypertension) HLD (hyperlipidemia) Type 2 diabetes mellitus Normal colonoscopy Surgical History No pertinent past surgical history Family History Father Lung cancer Lymphoma Mother Intestinal cancer Brother Substance use disorder Social History Household Members: Family Housing: House Do you presently have visiting nurse or other home services: No Alcohol intake: never Comment: transfer from ED Patient Tobacco Use Status: Former Tobacco user e-Cigarette/Vaping Use: Never Used Second Hand Smoke Exposure: No service: No Current occupational status: employed Cognitive needs: No Hearing needs: No Vision needs: Yes Review of Systems Const Denies weakness ENT Denies dizziness Card Denies chest pain, Denies chest pain with activity, Denies syncope, Denies rapid heart rate, Denies pedal edema, Denies edema, Denies leg edema, Denies lightheadedness, Denies palpitations, Denies dyspnea, Denies dyspnea on exertion and Denies orthopnea Resp Denies cough, Denies dyspnea and Denies dyspnea on exertion GI Denies hematochezia and Denies change in stool character Musc Denies abnormal gait, Denies muscle cramps, Denies muscle weakness, Denies numbness, Denies radiating pain into limb and Denies tingling Neuro Denies abnormal gait, Denies dizziness, Denies syncope, Denies numbness, Denies tingling and Denies weakness Endo Denies palpitations Physical Exam Vital Signs: Last Vital Signs Pulse 78 05/02/24 14:19 BP 130/78 05/02/24 14:19 BMI result Body Mass Index 34.6 Const General: comfortable and no acute distress Orientation/consciousness: patient oriented x3 HEENT Other: Unremarkable Head: Yes normal to inspection Neck Neck: Yes normal visual inspection Chest Chest palpation & inspection: normal inspection of the chest Resp Auscultation: clear to auscultation bilaterally Cardio Palpation: normal PMI Heart sounds: S1 normal heart sound present, S2 normal heart sound present, no gallops, Murmur heart sound present systolic III/ and at the right sternal border and no rubs GI Palpation (GI): Soft to palpation Back/Spine/Pelvis Other: unremarkable Skin General skin exam: no rashes or lesions noted Neuro General: patient oriented x3 Extrem General: Yes normal to inspection Psych Mental Status: mental status grossly normal Assessment & Plan Assessment & Plan (1) Atherosclerotic cardiovascular disease: Code(s): I25.10 - Atherosclerotic heart disease of [place] coronary artery without angina pectoris Category: Medical Plan: In the recent cardiac catheterization from 03/2024, 50% mid LAD stenosis; OM3, 90% ostial stenosis, small to moderate size territory involving OM2 bifurcation. Clinically, no angina. Continue aspirin and statins. Can follow up on lipids. (2) Non-ST elevated myocardial infarction (non-STEMI): Code(s): I21.4 - Non-ST elevation (NSTEMI) myocardial infarction Category: Medical Plan: Recovered completely. Seems like type 2 NSTEMI. Cardiac catheterization findings as above. Recommended cardiac rehabilitation. (3) Nonrheumatic aortic (valve) stenosis: Code(s): I35.0 - Nonrheumatic aortic (valve) stenosis Category: Medical Plan: In the echocardiogram, severe aortic valve calcification with moderate stenosis. We will follow this on echocardiogram. (4) Mitral annular calcification: Code(s): I34.81 - Nonrheumatic mitral (valve) annulus calcification Category: Medical Plan: Severe mitral annular calcification on the echocardiogram. No valvular dysfunction. (5) Asymmetric septal hypertrophy: Code(s): I51.7 - Cardiomegaly Category: Medical Plan: Severe septal hypertrophy in the echocardiogram, up to 1.9 cm. Possibly related to hypertension. (6) HTN (hypertension): Code(s): I10 - Essential (primary) hypertension Category: Medical Qualifiers: Hypertension type: essential hypertension Qualified Code(s): I10 - Essential (primary) hypertension Plan: Continue lisinopril. Orders: Orders Lipid Panel Today Ar Amin MD E78.5 - Hyperlipidemia, unspecified, I21.4 - Non-ST elevation (NSTEMI) myocardial infarction Liver Panel Today Ar Amin MD I21.4 - Non-ST elevation (NSTEMI) myocardial infarction, I25.10 - Atherosclerotic heart disease of [place] coronary artery without angina pectoris Medications: Changed From lansoprazole 30 mg PO DAILY 90 days 90 caps 2RF To lansoprazole 30 mg PO DAILY PRN Rigo Klein PA-C Coding Level of Care Code Est Pt Level 4 (78053) Complex EM visit Add On G2211 Diagnoses Atherosclerotic cardiovascular disease I25.10 Non-ST elevated myocardial infarction (non-STEMI) I21.4 Nonrheumatic aortic (valve) stenosis I35.0 Mitral annular calcification I34.81 Asymmetric septal hypertrophy I51.7 Essential hypertension I10 Hypertension type: essential hypertension
--- OUTSIDE RECORDS SUMMARY | 2024-05-02 17:04 | XMS_ITS | Patient Health Record ---
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 Name Role Phone iRgo Klein Primary Care Provider Unavailab Chetna Moncada Unavailable [phone] Sorin Kingsley Unavailable [phone] Allergies Allergen (clinical drug ingredient) Drug/Non Drug Allergy documented on EMR Reaction Allergy Type Onset Date Status amoxicillin Amoxicillin Unknown Drug Allergy Act ayad Penicillin Unknown Drug Allergy Active Results Component Value Reference Range Notes HEMOGLOBIN A1C (GLYCOHEMOGLO BIN) Reviewed date:06/10/2023 12:05:39 PM Interpretation: Performing Lab: Notes/Report: HEMOGLOBIN A1C % (HH) 8.1 HEMOGLOBIN A1C (GLYCOHEMOGLO BIN) Reviewed date:12/22/2023 09:29:37 AM Interpretation: Performing Lab: Notes/Report: TOTAL HEMOGLOBIN (HGBA1C) 9.6 Reason For Referral No Information Medications Medication SIG (Take, Route, Frequency, Duration) Notes Start Date End Date Status metFORMIN HCl 1000 MG 1 tablet with a meal Orally Twice a day Active hydroCHLOROthiazide 25 MG 1 tablet in th e morning Orally Once a day for 30 day(s) Active Lisinopril 20 MG 1 tablet Orally Twice a day Active Lansoprazole 30 MG Orally PRN A ctive Vitamin E Active glipiZIDE 10 MG 1 tablet Orally Twice a day Active Extra Depth Orthopedic Shoes (1 Pair) with Customized Heat Molded Multidensity Innersoles (3 Pair) as directed Dx: NIDDM/Polyneuropath y (E11.42), Hammertoe Foot Deformity (M20.41,M20.42), Preulcerative Skin Lesion(s) (L85.1 Not-Taking Gabapentin 100 MG 1 capsule Orally Three times a day for 30 day(s) PRN Active steroids Not-Taking Doxycycline 9 months out of the year Active Papaya Enzyme Active LORazepam 0.5 MG 1 tablet as needed Orally every 6 hrs PRN Active Calcium Active Vitamin C Active Ciclopirox Olamine 0.77 % 1 application Externally Twice a day to skin of feet including between the toes for 30 days Active Vitamin B 12 Active Immunizations Vaccine Route Administration Date Status Comme nts COVID-19 [facility] [employer] [facility] Unknown 05/29/2021 R efused Influenza Unknown 08/22/2019 Refused Social History Tobacco Use: Social History Observation [...] Are you an other tobacco user? No Problems Problem Type SNOMED Code ICD Code Onset Dates Problem Status W/U Status Risk Notes Problem Polyneuropathy due to type 2 diabetes mellitus (288989658) Type 2 diabetes mellitus with diabetic polyneuropathy (E11.42) Active confirmed Vital Signs Blood pressure diastolic 74 mm Hg 12/22/2023 Height 6ft 1in in 12/22/2023 Blood pressure systolic 120 mm Hg 12/22/2023 Weight 255 lbs 12/22/2023 BMI 33.64 kg/m2 12/22/2023 Procedures Procedure Date Ordered Date Performed Result Body Sit e 57514-VLLAIPU NAIL, 1-5 12/22/2023 N/A 56756-IUNV SKIN LESIONS, OVER 4 12/22/2023 N/A F7385-OSGIUOQQ DYSTROPHIC NAILS ANY # 12/22/2023 N/A Encounters Encounter Location Date Provider Diagnosis [facility] [address] [place] [address] 06/10/2023 Sorin Kingsley Tinea unguium B35.1 ; Type 2 diabetes mellitus with diabetic polyneuropathy E11.42 ; Pain in right toe(s) M79.674 ; Pain in left toe(s) M79.675 ; Other hammer toe(s) (acquired), left foot M20.42 ; Other hammer toe(s) (acquired), right foot M20.41 ; Xerosis cutis L85.3 ; Metatarsalgia, left foot M77.42 ; Metatarsalgia, right foot M77.41 ; Ingrowing nail L60.0 and Tinea pedis B35.[address] [address] 09/16/2023 Sorin Kingsley Tinea unguium B35.1 ; Type 2 diabetes mellitus with diabetic polyneuropathy E11.42 ; Pain in right toe(s) M79.674 ; Pain in left toe(s) M79.675 ; Other hammer toe(s) (acquired), left foot M20.42 ; Other hammer toe(s) (acquired), right foot M20.41 ; Xerosis cutis L85.3 ; Metatarsalgia, left foot M77.42 ; Metatarsalgia, right foot M77.41 ; Ingrowing nail L60.0 and Tinea pedis B35.[address] [address] 12/22/2023 Chetna Dunbar Tinea pedis of both feet B35.3 ; Type 2 diabetes mellitus with diabetic polyneuropathy E11.42 and Tinea unguium B35.1 Assessments Encounter Date Diagnosis (ICD Code) Assessment Notes Treatment Notes Treatment Clinical Notes Section Notes 06/10/2023 Tinea unguium (ICD-10 - B35.1) 09/16/2023 Tinea unguium (ICD-10 - B35.1) 12/22/2023 Tinea pedis of both feet (ICD-10 - B35.3) 09/16/2023 Type 2 diabetes mellitus with diabetic polyneuropathy (ICD-10 - E11.42) 12/22/2023 Tinea unguium (ICD-10 - B35.1) 12/22/2023 Type 2 diabetes mellitus with diabetic polyneuropathy (ICD-10 - E11.42) 06/10/2023 Type 2 diabetes mellitus with diabetic polyneuropathy (ICD-10 - E11.42) 06/10/2023 Pain in right toe(s) (ICD-10 - M79.674) 09/16/2023 Pain in right toe(s) (ICD-10 - M79.674) 09/16/2023 Pain in left toe(s) (ICD-10 - M79.675) 06/10/2023 Pain in left toe(s) (ICD-10 - M79.675) 06/10/2023 Other hammer toe(s) (acquired), left foot (ICD-10 - M20.42) 09/16/2023 Other hammer toe(s) (acquired), left foot (ICD-10 - M20.42) 09/16/2023 Other hammer toe(s) (acquired), right foot (ICD-10 - M20.41) 06/10/2023 Other hammer toe(s) (acquired), right foot (ICD-10 - M20.41) 06/10/2023 Xerosis cutis (ICD-10 - L85.3) 09/16/2023 Xerosis cutis (ICD-10 - L85.3) 09/16/2023 Metatarsalgia, left foot (ICD-10 - M77.42) 06/10/2023 Metatarsalgia, left foot (ICD-10 - M77.42) 06/10/2023 Metatarsalgia, right foot (ICD-10 - M77.41) 09/16/2023 Metatarsalgia, right foot (ICD-10 - M77.41) 09/16/2023 Ingrowing nail (ICD-10 - L60.0) 06/10/2023 Ingrowing nail (ICD-10 - L60.0) 09/16/2023 Tinea pedis (ICD-10 - B35.3) 06/10/2023 Tinea pedis (ICD-10 - B35.3) Plan Of Treatment Pending Test Test Name Order Date 85675-PFABHNY NAIL, 1-5 12/22/2023 31358-GMLH SKIN LESIONS, OVER 4 12/22/19 24 91317-KZKI SKIN LESIONS, OVER 4 07/10/19 21 71095-ZVCW SKIN LESIONS, OVER 4 10/11/19 21 18294-OSRB SKIN LESIONS, OVER 4 02/08/20 21 40128-GGLF SKIN LESIONS, OVER 4 05/30/19 00935-THGL SKIN LESIONS, OVER 4 07/20/19 27214-CRAI SKIN LESIONS, OVER 4 09/21/19 19 57748-RDTP SKIN LESIONS, OVER 4 11/25/19 19 87314-TOFH SKIN LESIONS, OVER 4 02/10/20 98832-CFSF SKIN LESIONS, OVER 4 05/25/19 20 44389-QFYJ SKIN LESIONS, OVER 4 08/22/19 20 06383-ZALZ SKIN LESIONS, OVER 4 11/21/19 20 59858-STDE SKIN LESIONS, OVER 4 03/28/19 21 01597-WJXY SKIN LESIONS, 2 TO 4 02/08/20 L7829-KNDYUEXC DYSTROPHIC NAILS ANY # T5723-IFNGCGVJ DYSTROPHIC NAILS ANY # U3458-UKHBXYYZ DYSTROPHIC NAILS ANY # O8235-BUJFPMRA DYSTROPHIC NAILS ANY # K3206-JQTVIMHK DYSTROPHIC NAILS ANY # Q3709-BUGUVPKY DYSTROPHIC NAILS ANY # M4452-RJZJQCSZ DYSTROPHIC NAILS ANY # A6859-WTYRGSWB DYSTROPHIC NAILS ANY # F9873-VFFDLYDC DYSTROPHIC NAILS ANY # I6659-JMACIVUW DYSTROPHIC NAILS ANY # L5917-WGZRSXWC DYSTROPHIC NAILS ANY # L3903-VZPXGAKO DYSTROPHIC NAILS ANY # P1814-TONNDUGW DYSTROPHIC NAILS ANY # 56166-WPFJBXTF OF HEMATOMA/FLUID 019 Insurance Providers Payer Name Payer Address Payer Phone Subscriber Number Group Number Insured Name Patient Relationship to Insured Coverage Start Date Coverage End Date [employer] [address] [place] [address] [id number] Ramiro Rose Self - patient is the insured [address] [place] [address] [address] [place] [address] [id number] Ramiro Rose Self - patient is the insured Medical (General) History Medical History History ICD Code type II diabetes High blood pressure Measles Chicken pox Covid 19 Surgical History Surgery Date(Month/Year) tonsillectomy
--- OUTSIDE RECORDS SUMMARY | 2024-05-02 17:04 | XMS_ITS ---
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 Role Phone Rigo Klein Primary Care Provider Unavailab Chetna Moncada Unavailable [phone] Sorin Kingsley Unavailable [phone] REASON FOR VISIT Transfer to Different Provider Encounters Encounter Location Date Provider Diagnosis [facility] [address] [place] [address] 03/09/2024 Sorin Kingsley Plan Of Treatment No Information Progress Notes * Ramiro CLAYTON JrDOB:[birth year] (74 yo M)Acc No.[id number]:03/09/2024 Progress Note Patient:?Ramiro CLAYTON Jr Provider:?Sorin Kingsley DPM :1950???Age:73 Y???Sex:Male Bienvenido e:03/09/2024 Address:[address] [place] [address] Pcp:Rigo Klein Subjective: * Chief Complaints: * ???1. Transfer to Different Provider. * Medical History:? Objective: * Vitals:? Assessment: Plan: * Treatment: * Images: * The named appointment provid er may or may not be the originator of this progress note, and it is not deemed complete until electronically signed by the appointment provider. Sign off status: Pending * Provider:?Sorin Kingsley DPM Date:? 025 Generated for Chari donis/Aaliyah/Marcy on:?05/02/2024 05:04 PM EST
--- OUTSIDE RECORDS SUMMARY | 2024-05-02 17:05 | XMS_ITS ---
Author Organization [facility] Address [address] [place] [address] Care Team Providers Care Special Needs Nanny Name Role Phone Rigo Klein Primary Care Provider Unavailab Chetna Moncada Unavailable [phone] Encounters Encounter Location Date Provider Diagnosis [address] [address] 03/30/2024 Chetna Dunbar Plan Of Treatment No Information Progress Notes * Ramiro CLAYTON JrDOB:[birth year] (74 yo M)Acc No.[id number]:03/30/2024 Progress Note Patient:?Ramiro CLAYTON Jr Provider:?Chetna Dunbar DPM :1950???Age:73 Y???Sex:Male Bienvenido e:03/30/2024 Address:[address] [place], [place] [id number] Pcp:Rigo Klein Subjective: * Chief Complaints: * ??? * Medical History:? Objective: * Vitals:? Assessment: Plan: * Treatment: * Images: * The named appointment provid er may or may not be the originator of this progress note, and it is not deemed complete until electronically signed by the appointment provider. Sign off status: Pending * Provider:?Chetna Dunbar DPM Date:?0 03/30/2024 Generated for Chari donis/Aaliyah/eTransmitting on:?05/02/2024 05:04 PM EST
--- OUTSIDE RECORDS SUMMARY | 2024-05-02 17:05 | XMS_ITS ---
Author Organization [facility] Address [address] [place] [address] Care Team Providers Care Eddy Current Inspector Name Role Phone Rigo Klein Primary Care Provider Unavailab Chetna Moncada Unavailable [phone] Velez Encounters Encounter Location Date Provider Diagnosis [facility] [address] [place] [address] 03/09/2024 Chetna Dunbar Plan Of Treatment No Information Progress Notes * Ramiro CLAYTON JrDOB:[birth year] (74 yo M)Acc No.[id number]:03/09/2024 Progress Note Patient:?Ramiro CLAYTON Jr Provider:?Chetna Dunbar DPM :1950???Age:73 Y???Sex:Male Bienvenido e:03/09/2024 Address:[address] [facility] Pcp:Rigo Klein Subjective: * Chief Complaints: * [...] DPM Date:?0 03/09/2024 Generated for Chari donis/Aaliyah/Marcy on:?05/02/2024 05:04 PM EST
== END 2024-05-02 14:40 | disposition home or self-care (01) ==
PROVIDERS: PCP Physician Assistant; Visit Provider Internal Medicine
DX: I25.10 Atherosclerotic heart disease of native coronary artery without angina pectoris (principal); I21.4 Non-ST elevation (NSTEMI) myocardial infarction; I35.0 Nonrheumatic aortic (valve) stenosis; I34.81 Nonrheumatic mitral (valve) annulus calcification; I51.7 Cardiomegaly; I10 Essential (primary) hypertension
CPT/HCPCS: 99214; G2211

== ENCOUNTER → 2024-05-02 14:16 | Outpatient (BNVA) | payer MEDICARE, OTHER, SELFPAY | PROVIDERS: PCP Physician Assistant; Visit Provider Internal Medicine | DX: I25.10 Atherosclerotic heart disease of native coronary artery without angina pectoris (principal); I21.4 Non-ST elevation (NSTEMI) myocardial infarction; I10 Essential (primary) hypertension; I35.0 Nonrheumatic aortic (valve) stenosis; I34.81 Nonrheumatic mitral (valve) annulus calcification; I51.7 Cardiomegaly; E78.5 Hyperlipidemia, unspecified | CPT/HCPCS: 99212 ==

== ENCOUNTER 2024-05-10 11:17 | Outpatient (AMB) | payer MEDICARE, OTHER, SELFPAY ==
--- NOTE | 2024-05-10 11:29 | MHC.PC.OV ---
Vital Signs 05/10/24 11:31 Height 6 ft 1 in Weight 263 lb 6.4 oz BMI 34.7 BP 140/68 H Blood Pressure Location Lt brachial Position Sitting Pulse 72 Pulse Source Pulse Oximeter Temp 98.8 F Temp Source Oral Pulse Oximetry (%) 96 Oxygen Delivery Method Room Air Intake Visit Reasons: [facility] [place] & [facility] 03/28 Glass Toughening Operator Required: No Accompanied by: Self / Same As Patient Allergies penicillin V Allergy (Unknown, Verified 05/10/24 11:39) rash, swelling Tobacco use date assessed: 05/10/24 Fall risk assessment: No Falls in past year Last assessed Fall Risk: 05/10/24 Dental Screening Dental Screen Date: 05/10/24 Did you have a dental visit in the last 12 months?: Yes Did you have a dental problem in the last 6 months where you did not have access to dental care?: No Was dental information given to patient?: Patient has dentist HPI [facility] [place] & [facility] 03/28 HPI Details Patient is a 74-year-old male who presented for post hospital follow up visit The patient post hospital, elevated blood pressure, the patient reports that he was rushing to make appt Reports that he just had to bring his to the emergency room, rechecked bp 132/76 Systolic heart murmur heard a1c 10.7 % elevated the patient want to continue dieting for now because he is not as active vitamin K2 and D3 question dissolving plaques [facility] Medical History (Updated 05/10/24 @ 12:25 by DIAMOND Velázquez) Type 2 diabetes mellitus HTN (hypertension) HLD (hyperlipidemia) Normal colonoscopy Surgical History No pertinent past surgical history Family History Father Lung cancer Lymphoma Mother Intestinal cancer Brother Substance use disorder Social History Household Members: Family Housing: House Do you presently have visiting nurse or other home services: No Alcohol intake: never Comment: transfer from ED Patient Tobacco Use Status: Former Tobacco user e-Cigarette/Vaping Use: Never Used Second Hand Smoke Exposure: No service: No Current occupational status: employed Cognitive needs: No Hearing needs: No Vision needs: Yes Questionnaire PHQ-9 Over the last 2 weeks, how often have you been bothered by any of the following problems? 1. Little interest or pleasure in doing things: not at all 2. Feeling down, depressed, or hopeless: not at all 3. Trouble falling or staying asleep, or sleeping too much: not at all 4. Feeling tired or having little energy: not at all 5. Poor appetite or overeating: not at all 6. Feeling bad about yourself - or that you are a failure or have let yourself or your family down: not at all 7. Trouble concentrating on things, such as reading the newspaper or watching television: not at all 8. Moving or speaking so slowly that other people could have noticed. Or the opposite - being so fidgety or restless that you have been moving around a lot more than usual: not at all 9. Thoughts that you would be better off or of hurting yourself in some way: not at all Total score: 0 Depression Screening Interpretation: Negative Depression Screening Done: Yes 21369 - PHQ-9 Billing: Yes Source: Developed by Drs. Shayan Villegas, Casie Stafford, Reza Rene and colleagues, with an educational mack from [employer]. Thrive Questionnaire Date Thrive assessed: 05/10/24 What is your living situation today?: I have a steady place to live Within the past 12 months, did the food you bought not last and you didn't have the money to get more?: Never true Within the past 12 months, did you worry whether your food would run out before you got money to buy more?: Never true Do you have trouble paying for medicines?: No Do you have trouble getting transportation to medical appointments?: No Do you have trouble paying your heating and electricity bill?: No Do you have trouble taking care of your child, family member or friend?: No Do you have trouble with day-to-day activities such as bathing, preparing meals, shopping, managing finances, etc.?: No Are you currently unemployed and looking for a job?: No Are you interested in more education?: No Please select the resources that you would like help with: None Currently or been in a relationship where the following occur: No concerns reported THRIVE Score: 0 AUDIT C Alcohol Use Questionnaire (AUDIT-C) 1. How often do you have a drink containing alcohol?: Never Total Score: 0 GERARD-7 AMB Questionnaire GERARD-7 Date GERARD - 7 assessed: 05/10/24 Feeling nervous, anxious, or on edge: 0 = Not at all Not being able to stop or control worryin = Not at all Worrying too much about different things: 0 = Not at all Trouble relaxin = Not at all Being so restless that it is hard to sit still: 0 = Not at all Becoming easily annoyed or irritable: 0 = Not at all Feeling afraid as if something awful might happen: 0 = Not at all Total GERARD-7 score (0-4 normal; 5-9 mild; 10-14 moderate; 15-21 severe): 0 Source: Developed by Drs. Shayan Villegas, Casie Stafford, Reza Rene and colleagues, with an educational mack from [employer]. GERARD-7 Assessment Billing GERARD-7 Assessment Tool: GERARD-7 Assessment 11881 Physical exam (Primary Care) Vital Signs: Last Vital Signs Temp 98.8 F 05/10/24 11:31 Pulse 72 05/10/24 11:31 BP 140/68 H 05/10/24 11:31 Pulse Ox 96 05/10/24 11:31 Oxygen Delivery Method Room Air 05/10/24 11:31 BMI result Body Mass Index 34.7 Tobacco/Smoking Status: Tobacco use Status Tobacco use date assessed 05/10/24 05/10/24 11:46 Patient Tobacco Use Status Former Tobacco user 05/10/24 11:30 e-Cigarette/Vaping Use Never Used 05/10/24 11:30 PHQ-9: PHQ-9 Score PHQ-9: Total score 0 05/10/24 12:20 Depression Screening Interpretation: Negative Thrive Assessment: Date of Thrive Assessment Date Thrive assessed 05/10/24 05/10/24 11:46 Currently or been in a relationship where the following occur: No concerns reported Results AMB Hemoglobin A1c AMB Hemoglobin A1c 10.7 % Last Edit by Fatoumata Lawson CMA on 05/10/24 11:51 Results Reviewed Results Reviewed: Laboratory Last Values Hgb A1c (Clinic) 10.7 % (4.0-6.0) H 05/10/24 11:50 Coding Additional Codes GERARD-7 Assessment Billing - GERARD-7 Assessment Tool: GERARD-7 Assessment 12690 ([id number]) PHQ-9 - 69506 - PHQ-9 Billing: Yes ([id number]) Assessment & Plan Assessment & Plan Orders: Orders AMB Hemoglobin A1c Today Z13.9 - Encounter for screening, unspecified Complete Blood Count Auto Diff 3 Months E11.9 - Type 2 diabetes mellitus without complications, E66.09 - Other obesity due to excess calories, I10 - Essential (primary) hypertension, K21.9 - Gastro-esophageal reflux disease without esophagitis, M54.31 - Sciatica, right side, Z68.35 - Body mass index [BMI] 35.0-35.9, adult TSH reflex Free T4 3 Months E11.9 - Type 2 diabetes mellitus without complications, E66.09 - Other obesity due to excess calories, I10 - Essential (primary) hypertension, K21.9 - Gastro-esophageal reflux disease without esophagitis, M54.31 - Sciatica, right side, Z68.35 - Body mass index [BMI] 35.0-35.9, adult Glucose Fasting 3 Months E11.9 - Type 2 diabetes mellitus without complications, E66.09 - Other obesity due to excess calories, I10 - Essential (primary) hypertension, K21.9 - Gastro-esophageal reflux disease without esophagitis, M54.31 - Sciatica, right side, Z68.35 - Body mass index [BMI] 35.0-35.9, adult Comprehensive [place]. Panel Fast 3 Months E11.9 - Type 2 diabetes mellitus without complications, E66.09 - Other obesity due to excess calories, I10 - Essential (primary) hypertension, K21.9 - Gastro-esophageal reflux disease without esophagitis, M54.31 - Sciatica, right side, Z68.35 - Body mass index [BMI] 35.0-35.9, adult Lipid Panel 3 Months E11.9 - Type 2 diabetes mellitus without complications, E66.09 - Other obesity due to excess calories, I10 - Essential (primary) hypertension, K21.9 - Gastro-esophageal reflux disease without esophagitis, M54.31 - Sciatica, right side, Z68.35 - Body mass index [BMI] 35.0-35.9, adult Vitamin D 25-OH Total 3 Months E11.9 - Type 2 diabetes mellitus without complications, E66.09 - Other obesity due to excess calories, I10 - Essential (primary) hypertension, K21.9 - Gastro-esophageal reflux disease without esophagitis, M54.31 - Sciatica, right side, Z68.35 - Body mass index [BMI] 35.0-35.9, adult UA CC w/rflx Micro + Cult 3 Months E11.9 - Type 2 diabetes mellitus without complications, E66.09 - Other obesity due to excess calories, I10 - Essential (primary) hypertension, K21.9 - Gastro-esophageal reflux disease without esophagitis, M54.31 - Sciatica, right side, Z68.35 - Body mass index [BMI] 35.0-35.9, adult Hemoglobin A1c 3 Months E11.9 - Type 2 diabetes mellitus without complications, E66.09 - Other obesity due to excess calories, I10 - Essential (primary) hypertension, K21.9 - Gastro-esophageal reflux disease without esophagitis, M54.31 - Sciatica, right side, Z68.35 - Body mass index [BMI] 35.0-35.9, adult
[2024-05-10 11:31] VITALS: BP 140/68; PULSE 72; TEMP 37.1; O2SAT 96; BMI 34.7
--- OUTSIDE RECORDS SUMMARY | 2024-05-10 13:59 | XMS_ITS ---
Author Organization [facility] Address [address] [place] [address] Care Team Providers Care Exterior Designer Name Role Phone Rigo Klein Primary Care Provider Unavailab Chetna Moncada Unavailable [phone] Velez Encounters Encounter Location Date Provider Diagnosis [facility] [address] [place] [address] 03/09/2024 Chetna Dunbar Plan Of Treatment No Information Progress Notes * Ramiro CLAYTON JrDOB:[birth year] (74 yo M)Acc No.[id number]:03/09/2024 Progress Note Patient:?Ramiro CLAYTON Jr Provider:?Chetna Dunbar DPM :1950???Age:73 Y???Sex:Male Bienvenido e:03/09/2024 Address:[address] [facility] Pcp:Rigo Klein Subjective: * Chief Complaints: * [...] DPM Date:?0 03/09/2024 Generated for Chari donis/Aaliyah/Marcy on:?05/10/2024 01:59 PM EDT
--- OUTSIDE RECORDS SUMMARY | 2024-05-10 13:59 | XMS_ITS | Patient Health Record ---
Author Organization [facility] Address [address] [facility] [place] [address] Care Team Providers Care Ordained Minister Name Role Phone Rigo Klein Primary Care Provider Unavailab Chetna Moncada Unavailable [phone] Sorin Kingsley Unavailable [phone] Allergies Allergen (clinical drug ingredient) Drug/Non Drug Allergy documented on EMR Reaction Allergy Type Onset Date Status amoxicillin Amoxicillin Unknown Drug Allergy Act ayad Penicillin Unknown Drug Allergy Active Results Component Value Reference Range Notes HEMOGLOBIN A1C (GLYCOHEMOGLO BIN) Reviewed date:12/22/2023 09:29:37 AM Interpretation: Performing Lab: Notes/Report: TOTAL HEMOGLOBIN (HGBA1C) 9.6 HEMOGLOBIN A1C (GLYCOHEMOGLO BIN) Reviewed date:06/10/2023 12:05:39 PM Interpretation: Performing Lab: Notes/Report: HEMOGLOBIN A1C % (HH) 8.1 Reason For Referral No Information Medications Medication [...] Polyneuropathy due to type 2 diabetes mellitus (817973079) Type 2 diabetes mellitus with diabetic polyneuropathy (E11.42) Active confirmed Vital Signs Blood pressure diastolic 74 mm Hg 12/22/2023 Height 6ft 1in in 12/22/2023 Blood pressure systolic 120 mm Hg 12/22/2023 Weight 255 lbs 12/22/2023 BMI 33.64 kg/m2 12/22/2023 Procedures Procedure Date Ordered Date Performed Result Body Sit e 09619-JZHVGZC NAIL, 1-5 12/22/2023 N/A 95465-YALE SKIN LESIONS, OVER 4 12/22/2023 N/A X3606-YXEPCDLV DYSTROPHIC NAILS ANY # 12/22/2023 N/A Encounters Encounter Location Date Provider Diagnosis [facility] [place] [address] [place] [address] 06/10/2023 Sorin Kingsley Tinea unguium B35.1 ; [...] Ingrowing nail L60.0 and Tinea pedis B35.[address] [address] 09/16/2023 Sorin Kingsley Tinea unguium B35.1 ; [...] Ingrowing nail L60.0 and Tinea pedis B35.[address] [address] 12/22/2023 Chetna Dunbar Tinea pedis of both [...] Treatment Pending Test Test Name Order Date 90184-DSLXYTG NAIL, 1-5 12/22/2023 29754-BVKO SKIN LESIONS, OVER 4 12/22/19 24 77271-ABCR SKIN LESIONS, OVER 4 07/10/19 21 30102-XYAT SKIN LESIONS, OVER 4 10/11/19 21 27534-KDBY SKIN LESIONS, OVER 4 02/08/20 21 37122-PESE SKIN LESIONS, OVER 4 05/30/19 77476-XWRW SKIN LESIONS, OVER 4 07/20/19 24023-FMQX SKIN LESIONS, OVER 4 09/21/19 19 34717-UBNN SKIN LESIONS, OVER 4 11/25/19 19 16717-JVCS SKIN LESIONS, OVER 4 02/10/20 56905-KHOB SKIN LESIONS, OVER 4 05/25/19 20 69007-QKEM SKIN LESIONS, OVER 4 08/22/19 20 84352-KZHV SKIN LESIONS, OVER 4 11/21/19 20 82078-COLG SKIN LESIONS, OVER 4 03/28/19 21 73161-HNPJ SKIN LESIONS, 2 TO 4 02/08/20 J9106-CQYXEDXW DYSTROPHIC NAILS ANY # I8536-XLPRBXNG DYSTROPHIC NAILS ANY # E4385-RAYZIHGR DYSTROPHIC NAILS ANY # H6167-VJQYNASD DYSTROPHIC NAILS ANY # T8510-YZNROZJT DYSTROPHIC NAILS ANY # F1991-QMRFUEIX DYSTROPHIC NAILS ANY # Z7737-FJDIUMHR DYSTROPHIC NAILS ANY # W4981-JZTDGRXB DYSTROPHIC NAILS ANY # Z0892-PPPTBXMU DYSTROPHIC NAILS ANY # C8799-FVFKBIYA DYSTROPHIC NAILS ANY # S2224-GJZRZQTN DYSTROPHIC NAILS ANY # G9556-KTIVKEEK DYSTROPHIC NAILS ANY # T6572-WWFMHHTK DYSTROPHIC NAILS ANY # 92576-RQKKRECO OF HEMATOMA/FLUID 019 Insurance Providers Payer Name Payer Address Payer Phone Subscriber Number Group Number Insured Name Patient Relationship to Insured Coverage Start Date Coverage End Date Medicare National Govt Sv[employer] [address] [place] [address] [id number] Ramiro Rose Self - patient is the insured [address] [place] [address] [address] [place] [address] [phone] [id number] Ramiro Rose Self - patient is the insured Medical (General) History Medical History History ICD Code type II diabetes High blood pressure Measles Chicken pox Covid 19 Surgical History Surgery Date(Month/Year) tonsillectomy
--- OUTSIDE RECORDS SUMMARY | 2024-05-10 13:59 | XMS_ITS ---
Author Organization [facility] Address [address] [place] [address] Care Team Providers Care Medical Equipment Repairer Name Role Phone Rigo Klein Primary Care Provider Unavailab Chetna Moncada Unavailable [phone] Encounters Encounter Location Date Provider Diagnosis [address] [address] 03/30/2024 Chetna Dunbar Plan Of Treatment No Information Progress Notes * Ramiro CLAYTON JrDOB:[birth year] (74 yo M)Acc No.[id number]:03/30/2024 Progress Note Patient:?Ramiro CLAYTON Jr Provider:?Chetna Dunbar DPM :1950???Age:73 Y???Sex:Male Bienvenido e:03/30/2024 Address:[address] [place], [place] [id number] Pcp:Rigo Klein Subjective: * Chief Complaints: * [...] DPM Date:?0 03/30/2024 Generated for Chari donis/Aaliyah/eTransmitting on:?05/10/2024 01:59 PM EDT
--- OUTSIDE RECORDS SUMMARY | 2024-05-10 13:59 | XMS_ITS ---
Author Organization [facility] Address [address] [place] [address] Care Team Providers Care Commercial Construction Estimator Name Role Phone Rigo Klein Primary Care Provider Unavailab Chetna Moncada Unavailable [phone] Sorin Kingsley Unavailable [phone] REASON FOR VISIT Transfer to Different Provider Encounters Encounter Location Date Provider Diagnosis [facility] [address] [place] [address] 03/09/2024 Sorin Kingsley Plan Of Treatment No Information Progress Notes * Ramiro CLAYTON JrDOB:[birth year] (74 yo M)Acc No.[id number]:03/09/2024 Progress Note Patient:?Ramiro CLAYTON Jr Provider:?Sorin Kingsley DPM :1950???Age:73 Y???Sex:Male Bienvenido e:03/09/2024 Address:[address] [place] [address] Pcp:Rigo Klein Subjective: * Chief Complaints: * [...] DPM Date:? 025 Generated for Chari donis/Aaliyah/Marcy on:?05/10/2024 01:59 PM EDT
== END 2024-05-10 12:36 | disposition home or self-care (01) ==
LOC: HO.HMCH 11:18
PROVIDERS: PCP Physician Assistant
DX: Z13.9 Encounter for screening, unspecified (principal)

== ENCOUNTER → 2024-05-10 11:17 | Outpatient (BNVA) | payer MEDICARE, OTHER, SELFPAY | PROVIDERS: PCP Physician Assistant | DX: I21.4 Non-ST elevation (NSTEMI) myocardial infarction (principal); I51.7 Cardiomegaly; E11.9 Type 2 diabetes mellitus without complications; I35.0 Nonrheumatic aortic (valve) stenosis | CPT/HCPCS: 83036; 96127; 99212 ==

== ENCOUNTER 2024-08-05 13:48 | Outpatient (REF) | payer MEDICARE, OTHER, SELFPAY ==
--- OUTSIDE RECORDS SUMMARY | 2024-08-05 13:54 | XMS_ITS | Patient Health Record ---
Author Organization [facility] Address [address] [place] [address] Care Team Providers Care Insulation Packer Name Role Phone Rigo Klein Primary Care Provider Unavailab Chetna Moncada Unavailable [phone] Sorin Kingsley Unavailable [phone] Allergies Allergen (clinical drug ingredient) Drug/Non Drug [...] Polyneuropathy due to type 2 diabetes mellitus (364651345) Type 2 diabetes mellitus with diabetic polyneuropathy (E11.42) Active confirmed Vital Signs Blood pressure diastolic 74 mm Hg 12/22/2023 Height 6ft 1in in 12/22/2023 Blood pressure systolic 120 mm Hg 12/22/2023 Weight 255 lbs 12/22/2023 BMI 33.64 kg/m2 12/22/2023 Procedures Procedure Date Ordered Date Performed Result Body Sit e 18455-RXFDIXW NAIL, 1-5 12/22/2023 N/A 58176-VBBI SKIN LESIONS, OVER 4 12/22/2023 N/A F4640-JBZAVSVX DYSTROPHIC NAILS ANY # 12/22/2023 N/A Encounters Encounter Location Date Provider Diagnosis [facility] [place] [address] [place] [address] 09/16/2023 Sorin Kingsley Tinea unguium B35.1 ; [...] Ingrowing nail L60.0 and Tinea pedis B35.[address] [facility] [address] [address] 12/22/2023 Chetna Dunbar Tinea pedis of both feet B35.3 ; Type 2 diabetes mellitus with diabetic polyneuropathy E11.42 and Tinea unguium B35.1 Assessments Encounter Date Diagnosis (ICD Code) Assessment Notes Treatment Notes Treatment Clinical Notes Section Notes 09/16/2023 Tinea unguium (ICD-10 - B35.1) 12/22/2023 Tinea pedis of both feet (ICD-10 - B35.3) 09/16/2023 Type 2 diabetes mellitus with diabetic polyneuropathy (ICD-10 - E11.42) 12/22/2023 Tinea unguium (ICD-10 - B35.1) 12/22/2023 Type 2 diabetes mellitus with diabetic polyneuropathy (ICD-10 - E11.42) 09/16/2023 Pain in right toe(s) (ICD-10 - M79.674) 09/16/2023 Pain in left toe(s) (ICD-10 - M79.675) 09/16/2023 Other hammer toe(s) (acquired), left foot (ICD-10 - M20.42) 09/16/2023 Other hammer toe(s) (acquired), right foot (ICD-10 - M20.41) 09/16/2023 Xerosis cutis (ICD-10 - L85.3) 09/16/2023 Metatarsalgia, left foot (ICD-10 - M77.42) 09/16/2023 Metatarsalgia, right foot (ICD-10 - M77.41) 09/16/2023 Ingrowing nail (ICD-10 - L60.0) 09/16/2023 Tinea pedis (ICD-10 - B35.3) Plan Of Treatment Pending Test Test Name Order Date 05575-BEAXKFE NAIL, 1-5 12/22/2023 36380-VOCY SKIN LESIONS, OVER 4 12/22/19 05399-TFDT SKIN LESIONS, OVER 4 07/10/19 51532-FHSN SKIN LESIONS, OVER 4 10/11/19 39793-GPCQ SKIN LESIONS, OVER 4 02/08/20 39739-URPB SKIN LESIONS, OVER 4 05/30/19 60673-HAXJ SKIN LESIONS, OVER 4 07/20/19 73454-SDBO SKIN LESIONS, OVER 4 09/21/19 89162-KODI SKIN LESIONS, OVER 4 11/25/19 68537-RMHM SKIN LESIONS, OVER 4 02/10/20 15126-KVBW SKIN LESIONS, OVER 4 05/25/19 47400-GKLZ SKIN LESIONS, OVER 4 08/22/19 33831-ZCUM SKIN LESIONS, OVER 4 11/21/19 61858-LQND SKIN LESIONS, OVER 4 03/28/19 54231-VHBZ SKIN LESIONS, 2 TO 4 02/08/20 H0624-UPZYKVBZ DYSTROPHIC NAILS ANY # T6925-ETWENKAX DYSTROPHIC NAILS ANY # P3257-XOWPQCKO DYSTROPHIC NAILS ANY # G6621-SESJPWCS DYSTROPHIC NAILS ANY # Z9110-IIYDZYUM DYSTROPHIC NAILS ANY # O7082-RDGSGWGV DYSTROPHIC NAILS ANY # X8410-LSPGERGF DYSTROPHIC NAILS ANY # F8511-PATBOZZM DYSTROPHIC NAILS ANY # W0067-KGIVKOAO DYSTROPHIC NAILS ANY # O6908-KWBLEIQQ DYSTROPHIC NAILS ANY # Z3077-ENQLQZNS DYSTROPHIC NAILS ANY # O9555-PCFKVPJH DYSTROPHIC NAILS ANY # E2895-MJVNOHLO DYSTROPHIC NAILS ANY # 07152-XUVTELZC OF HEMATOMA/FLUID 019 Insurance Providers Payer Name Payer Address Payer Phone Subscriber Number Group Number Insured Name Patient Relationship to Insured Coverage Start Date Coverage End Date Medicare National Govt Svcs Inc [address] [place] [address] [id number] Ramiro Rose Self - patient is the insured [address] [place] [address] [address] [place] [address] [id number] Ramiro Rose Self - patient is the insured Medical (General) History Medical History History ICD Code type II diabetes High blood pressure Measles Chicken pox Covid 19 Surgical History Surgery Date(Month/Year) tonsillectomy
[2024-08-05 14:06] LABS: MANUAL DIFF FLAG NO
[2024-08-05 14:45] LABS: Basophils Percent Auto 0.5 % (0-2); Eosinophils Absolute Auto 0.2 X10*3/uL (0.0-0.4); Eosinophils Percent Auto 2.7 % (0-4); Hematocrit 41.7 % (42.0-52.0); Hemoglobin 14.1 g/dl (14.0-18.0); Imm Gran Abs Auto 0.02 X10*3/uL (0.00-0.03); Imm Gran Pct Auto 0.4 % (0.0-0.4); Lymphocytes Absolute Auto 1.6 X10*3/uL (1.2-4.9); Lymphocytes Percent Auto 28.6 % (20-40); Mean Corpuscular HGB Conc 33.8 g/dl (31.0-36.0); Mean Corpuscular Hemoglobin 29.9 pg (27.0-33.0); Mean Corpuscular Volume 88.3 fL (80.0-98.0); Mean Platelet Volume 9.3 fL (9.4-12.4); Monocytes Absolute Auto 0.4 X10*3/uL (0.1-1.2); Monocytes Percent Auto 7.3 % (2-11); Neutrophils Absolute Auto 3.4 x10*3/uL (2.0-8.3); Neutrophils Percent Auto 60.5 % (45-73); Platelet Count 165 X10*3/uL (160-400); Red Blood Count 4.72 X10*6/uL (4.60-5.80); Red Cell Distribution Width 14.4 % (11.0-16.0); White Blood Count 5.6 X10*3/uL (4.8-10.8)
[2024-08-05 14:48] LABS: Appearance Urine Clear; Color Urine Yellow; Glucose Urine UA 500 mg/dL (Negative); Leukocyte Esterase Urine Negative (Negative); Nitrite Urine Negative (Negative); PH 5.5 (5.0-9.0); Specific Gravity - Urine >= 1.030 (1.005-1.025); UMIC TRIGGER UACC YES; Urine Blood Negative (Negative); Urine Ketones Negative (Negative); Urine Protein 30 (1+) mg/dL (Neg-Trace)
[2024-08-05 14:51] LABS: Estimated Average Glucose 272 mg/dL; Hemoglobin A1c % 11.1 % (<6.0); Total Hemoglobin (HGBA1C) 3672.2455 umol/L
[2024-08-05 14:57] LABS: Bacteria Urine None Seen (None Seen); Hyaline Casts Urine 0-2 /LPF (0-2); RBC Urine 0-2 /HPF (0-2); Squamous Epithelial Cell Urine 0-2 /HPF (0-2); WBC Urine 0-5 /HPF (0-5)
[2024-08-05 15:16] LABS: Cholesterol 134 mg/dL (<200); HDL Cholesterol 36 mg/dL (>40); LDL Cholesterol Calculated 68 mg/dL (<100); Triglycerides 150 mg/dL (<150)
[2024-08-05 15:23] LABS: Alanine Aminotransferase 47 U/L (0-40); Albumin Level 4.4 g/dL (3.5-5.0); Alkaline Phosphatase 62 U/L (39-117); Anion Gap 9 (12-20); Aspartate Amino Transferase 34 U/L (5-37); Bilirubin Direct 0.2 mg/dL (0.0-0.5); Bilirubin Total 0.7 mg/dL (0.0-1.0); Blood Urea Nitrogen 27 mg/dL (9-16); Calcium 9.7 mg/dL (8.4-10.2); Carbon Dioxide 30 mmol/L (22-29); Chloride 104 mmol/L (96-108); Cholesterol 137 mg/dL (<200); Estimated Glomerular Filt Rate > 60; Glucose Fasting 284 mg/dL (60-99); HDL Cholesterol 36 mg/dL (>40); LDL Cholesterol Calculated 71 mg/dL (<100); Potassium 4.7 mmol/L (3.3-5.1); Sodium 138 mmol/L (135-145); Triglycerides 152 mg/dL (<150)
[2024-08-05 15:32] LABS: TSH reflex Free T4 1.19 uIU/mL (0.32-4.0); Vitamin D 25-OH Total 54.1 ng/mL (>30)
== END 2024-08-05 13:49 | disposition home or self-care (01) ==
LOC: HO.LAB 13:48
PROVIDERS: Absent Provider Internal Medicine; PCP Physician Assistant
DX: E78.5 Hyperlipidemia, unspecified (principal); I21.4 Non-ST elevation (NSTEMI) myocardial infarction; I25.10 Atherosclerotic heart disease of native coronary artery without angina pectoris; I10 Essential (primary) hypertension; K21.9 Gastro-esophageal reflux disease without esophagitis; M54.31 Sciatica, right side; E66.09 Other obesity due to excess calories; E11.9 Type 2 diabetes mellitus without complications; Z68.35 Body mass index [BMI] 35.0-35.9, adult
CPT/HCPCS: 36415; 80053; 80061; 80076; 81001; 82248; 82306; 83036; 84443; 85025

== ENCOUNTER 2024-08-09 13:36 | Outpatient (AMB) | payer MEDICARE, OTHER, SELFPAY ==
--- NOTE | 2024-08-09 13:40 | MHC.OFFVIS ---
Vital Signs 08/09/24 13:41 Height 6 ft 1 in Weight 257 lb 15.053 oz BMI 34.0 BP 138/68 Blood Pressure Location Lt brachial Position Sitting Pulse 78 Pulse Source Pulse Oximeter Intake Visit Reasons: 4m follow up Allergies penicillin V Allergy (Unknown, Verified 05/10/24 11:39) rash, swelling Medication List - Last Reconciled 08/09/24 by Ar Amin MD aspirin 81 mg PO DAILY ciclopirox 0.77% appl topical BID clopidogrel 75 mg PO DAILY doxycycline hyclate 20 mg PO BID fluoride (sodium) 1.1% dental glipizide 10 mg PO BID lansoprazole 30 mg PO DAILY PRN lisinopril 20 mg PO BID lorazepam 0.5 mg PO Q12H PRN 4 days metformin 1,000 mg PO BID HPI Comments Details: Ramiro returns for follow-up regarding non ST elevation myocardial infarction. Multiple cardiovascular risk factors including diabetes, hypertension, dyslipidemia. In 03/2024, he presented after sneezing and in that instance, developed a discomfort across the upper chest. Troponins were checked and they were abnormal. Echocardiogram showed hyperdynamic LVEF and moderate aortic stenosis. He was sent for a diagnostic catheterization which showed coronary disease, but no interventions performed. From cardiac, he states he feels fine. No cardiac symptoms like angina. However, he states he tried different statins like atorvastatin, rosuvastatin and hence his blood sugars biked and then he stopped taking everything completely. However, his hemoglobin A1c was quite high even before this. But patient does not seem convinced. Currently, hemoglobin A1c is quite high at 11.1%. [facility] Medical History (Updated 05/15/24 @ 17:28 by DIAMOND Velázquez) Type 2 diabetes mellitus HTN (hypertension) HLD (hyperlipidemia) Normal colonoscopy Surgical History No pertinent past surgical history Family History Father Lung cancer Lymphoma Mother Intestinal cancer Brother Substance use disorder Social History Household Members: Family Housing: House Do you presently have visiting nurse or other home services: No Alcohol intake: never Comment: transfer from ED Patient Tobacco Use Status: Former Tobacco user e-Cigarette/Vaping Use: Never Used Second Hand Smoke Exposure: No service: No Current occupational status: employed Cognitive needs: No Hearing needs: No Vision needs: Yes Review of Systems Const Denies weakness ENT Denies dizziness Card Denies chest pain, Denies chest pain with activity, Denies syncope, Denies rapid heart rate, Denies pedal edema, Denies edema, Denies leg edema, Denies lightheadedness, Denies palpitations, Denies dyspnea, Denies dyspnea on exertion and Denies orthopnea Resp Denies cough, Denies dyspnea and Denies dyspnea on exertion GI Denies hematochezia and Denies change in stool character Musc Denies abnormal gait, Denies muscle cramps, Denies muscle weakness, Denies numbness, Denies radiating pain into limb and Denies tingling Neuro Denies abnormal gait, Denies dizziness, Denies syncope, Denies numbness, Denies tingling and Denies weakness Endo Denies palpitations Physical Exam Vital Signs: Last Vital Signs Pulse 78 08/09/24 13:41 BP 138/68 08/09/24 13:41 BMI result Body Mass Index 34.0 Const General: comfortable and no acute distress Orientation/consciousness: patient oriented x3 HEENT Other: Unremarkable Head: Yes normal to inspection Neck Neck: Yes normal visual inspection Chest Chest palpation & inspection: normal inspection of the chest Resp Auscultation: clear to auscultation bilaterally Cardio Palpation: normal PMI Heart sounds: S1 normal heart sound present, S2 normal heart sound present, no gallops, Murmur heart sound present systolic III/ and at the right sternal border and no rubs GI Palpation (GI): Soft to palpation Back/Spine/Pelvis Other: unremarkable Skin General skin exam: no rashes or lesions noted Neuro General: patient oriented x3 Extrem General: Yes normal to inspection Psych Mental Status: mental status grossly normal Assessment & Plan Assessment & Plan (1) Atherosclerotic cardiovascular disease: Code(s): I25.10 - Atherosclerotic heart disease of [place] coronary artery without angina pectoris Category: Medical Plan: Cardiac catheterization from 03/2024, 50% mid LAD stenosis; OM3, 90% ostial stenosis, small to moderate size territory involving OM2 bifurcation. Clinically, no angina. Continue aspirin intermediate frame tender. Plavix for about one year total. Not willing to go on statins as he thinks it increase his blood sugar although hemoglobin A1c was high even before this. (2) Nonrheumatic aortic (valve) stenosis: Code(s): I35.0 - Nonrheumatic aortic (valve) stenosis Category: Medical Plan: In the echocardiogram, severe aortic valve calcification with moderate stenosis. We will follow this on echocardiogram. (3) Mitral annular calcification: Code(s): I34.81 - Nonrheumatic mitral (valve) annulus calcification Category: Medical Plan: Severe mitral annular calcification on the echocardiogram. No valvular dysfunction. (4) Asymmetric septal hypertrophy: Code(s): I51.7 - Cardiomegaly Category: Medical Plan: Severe septal hypertrophy in the echocardiogram, up to 1.9 cm. Possibly related to hypertension. (5) HTN (hypertension): Code(s): I10 - Essential (primary) hypertension Category: Medical Qualifiers: Hypertension type: essential hypertension Qualified Code(s): I10 - Essential (primary) hypertension Plan: On lisinopril. (6) Type 2 diabetes mellitus: Code(s): E11.9 - Type 2 diabetes mellitus without complications Category: Medical Qualifiers: Diabetes mellitus intermediate frame tender insulin use: without intermediate frame tender use Diabetes mellitus complication status: without complication Qualified Code(s): E11.9 - Type 2 diabetes mellitus without complications Plan: Hemoglobin A1c is 11.1%. Indicates poorly controlled diabetes. Even in April it was 10.7%. Several other values over the last few years in 8s and 9s. We discussed about this in detail but he states he is going to just focus only on diet and lifestyle and not interested in any further medications. He also believes diabetes is getting worse because of statins. Although slight worsening of blood sugars possible because of statins, he essentially has poorly controlled diabetes at baseline. He wishes to discuss these with PCP only. Plan Discussion Notes I extensively discussed with the patient his current hyperglycemia and dyslipidemia management strategies. He showed concern about the statin-induced blood sugar elevate but acknowledged the necessity of managing dyslipidemia successfully. I highlighted that the primary treatment for cholesterol is statin therapy, scrutinizing his anecdotal experience with sugar spikes. We deliberated a holistic approach to incorporate dietary strategies and physical activity while staying open to alternative antihyperglycemic agents or insulin, should glycemic control remain inadequate. Follow-up with PCP is planned for a detailed diabetes management evaluation. I encouraged compliance and adherence to monitoring schedules, engaging with potential telephonic nurse consultation if needed. Patient was informed and verbally consented to the use of an ambient scribe for clinic note documentation during this visit. Orders: Orders CA echo transthoracic complete 6 Months I35.0 - Nonrheumatic aortic (valve) stenosis Patient Instructions: - Monitor blood sugar levels regularly and record readings. - Follow a balanced diet low in sugar and fats. - Engage in regular physical activity. - Attend the appointment with PCP for further guidance on diabetes management. - Contact your healthcare provider if you experience extremely high blood sugar readings, or any new or worsening symptoms. Coding Level of Care Code Est Pt Level 4 (61797) Complex EM visit Add On G2211 Diagnoses Atherosclerotic cardiovascular disease I25.10 Nonrheumatic aortic (valve) stenosis I35.0 Mitral annular calcification I34.81 Asymmetric septal hypertrophy I51.7 Essential hypertension I10 Hypertension type: essential hypertension Type 2 diabetes mellitus without complication, without long-term current use of insulin E11.9 Diabetes mellitus intermediate frame tender insulin use: without intermediate frame tender use Diabetes mellitus complication status: without complication
[2024-08-09 13:41] VITALS: BP 138/68; PULSE 78; BMI 34.0
--- OUTSIDE RECORDS SUMMARY | 2024-08-09 16:05 | XMS_ITS | Patient Health Record ---
Author Organization [facility] Address [address] [place] [address] Care Team Providers Care Commission Broker Name Role Phone Rigo Klein Primary Care Provider Unavailab Chetna Moncada Unavailable [phone] Sorin Kingsley Unavailable [phone] Allergies Allergen (clinical drug ingredient) Drug/Non Drug [...] Polyneuropathy due to type 2 diabetes mellitus (661664256) Type 2 diabetes mellitus with diabetic polyneuropathy (E11.42) Active confirmed Vital Signs Blood pressure diastolic 74 mm Hg 12/22/2023 Height 6ft 1in in 12/22/2023 Blood pressure systolic 120 mm Hg 12/22/2023 Weight 255 lbs 12/22/2023 BMI 33.64 kg/m2 12/22/2023 Procedures Procedure Date Ordered Date Performed Result Body Sit e 79701-BMFQEZI NAIL, 1-5 12/22/2023 N/A 33299-IQLL SKIN LESIONS, OVER 4 12/22/2023 N/A M6994-KEYIEXMB DYSTROPHIC NAILS ANY # 12/22/2023 N/A Encounters Encounter Location Date Provider Diagnosis [facility] [address] [address] [place] [address] 09/16/2023 Sorin Kingsley Tinea unguium B35.1 ; [...] Ingrowing nail L60.0 and Tinea pedis B35.[address] [facility] [address] [address] 12/22/2023 Chetna Dunbar Tinea pedis of both [...] Treatment Pending Test Test Name Order Date 24847-KJSPLHI NAIL, 1-5 12/22/2023 52066-ZHSK SKIN LESIONS, OVER 4 12/22/19 09041-ETLH SKIN LESIONS, OVER 4 07/10/19 62205-KEIB SKIN LESIONS, OVER 4 10/11/19 94577-HMOM SKIN LESIONS, OVER 4 02/08/20 70859-TFCT SKIN LESIONS, OVER 4 05/30/19 09060-ZFPD SKIN LESIONS, OVER 4 07/20/19 05200-BQZA SKIN LESIONS, OVER 4 09/21/19 68451-ILAE SKIN LESIONS, OVER 4 11/25/19 28567-ZTHI SKIN LESIONS, OVER 4 02/10/20 82914-TMFU SKIN LESIONS, OVER 4 05/25/19 40359-DISW SKIN LESIONS, OVER 4 08/22/19 94389-WWWR SKIN LESIONS, OVER 4 11/21/19 46963-JUJS SKIN LESIONS, OVER 4 03/28/19 07695-IBIO SKIN LESIONS, 2 TO 4 02/08/20 T0309-WDALVRAC DYSTROPHIC NAILS ANY # W0505-PFPYQEBP DYSTROPHIC NAILS ANY # J0289-LKSPNPFY DYSTROPHIC NAILS ANY # U7707-AHQPLVFR DYSTROPHIC NAILS ANY # G9494-ULYFAKDF DYSTROPHIC NAILS ANY # K0669-YRKZSCHL DYSTROPHIC NAILS ANY # T7870-KNOPPITI DYSTROPHIC NAILS ANY # R7871-BFLCSRSA DYSTROPHIC NAILS ANY # C7864-GMUJBEHG DYSTROPHIC NAILS ANY # X1113-CJWEBSWG DYSTROPHIC NAILS ANY # I4906-JONLLYOO DYSTROPHIC NAILS ANY # A8335-OQKDIHNZ DYSTROPHIC NAILS ANY # B7924-PWVBNPJA DYSTROPHIC NAILS ANY # 48467-ANYEKLRR OF [place]EMAT[place]/FLUID 019 Insurance Providers Payer Name Payer Address Payer Phone Subscriber Number Group Number Insured Name Patient Relationship to Insured Coverage Start Date Coverage End Date Medicare National Gov[employer] Sv[employer] [address] [place] [address] [id number] Ramiro Rose Self - patient is the insured [address] [place] [address] [address] [place] [address] [phone] [id number] Ramiro Rose Self - patient is the insured Medical (General) History Medical History History ICD Code type II diabetes High blood pressure Measles Chicken pox Covid 19 Surgical History Surgery Date(Month/Year) tonsillectomy
== END 2024-08-09 14:07 | disposition home or self-care (01) ==
LOC: HO.HCS 13:36
PROVIDERS: PCP Physician Assistant; Visit Provider Internal Medicine
DX: I25.10 Atherosclerotic heart disease of native coronary artery without angina pectoris (principal); I35.0 Nonrheumatic aortic (valve) stenosis; I34.81 Nonrheumatic mitral (valve) annulus calcification; I51.7 Cardiomegaly; I10 Essential (primary) hypertension; E11.9 Type 2 diabetes mellitus without complications
CPT/HCPCS: 99214; G2211

== ENCOUNTER → 2024-08-09 13:36 | Outpatient (BNVA) | payer MEDICARE, OTHER, SELFPAY | PROVIDERS: PCP Physician Assistant; Visit Provider Internal Medicine | DX: I25.10 Atherosclerotic heart disease of native coronary artery without angina pectoris (principal); I35.0 Nonrheumatic aortic (valve) stenosis; I34.81 Nonrheumatic mitral (valve) annulus calcification; I51.7 Cardiomegaly; I10 Essential (primary) hypertension; E11.9 Type 2 diabetes mellitus without complications; Z79.84 Long term (current) use of oral hypoglycemic drugs | CPT/HCPCS: 99212 ==

== ENCOUNTER 2024-08-15 09:29 | Outpatient (AMB) | payer MEDICARE, OTHER, SELFPAY ==
--- NOTE | 2024-08-15 09:28 | MHC.PC.OV ---
Intake Visit Reasons: Meds F/U Intake Note: The patient is requesting a prescription for Diclofenac due to ongoing sciatic nerve pain. He reports significant discomfort and notes that he will be leaving town on Thursday after 12:00 PM. 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 Accompanied by: Self / Same As Patient Allergies penicillin V Allergy (Unknown, Verified 08/15/24 09:49) rash, swelling Medication List - Last Reconciled 08/15/24 by Rigo Klein PA-C aspirin 81 mg PO DAILY ciclopirox 0.77% appl topical BID clopidogrel 75 mg PO DAILY doxycycline hyclate 20 mg PO BID fluoride (sodium) 1.1% dental glipizide 10 mg PO BID lansoprazole 30 mg PO DAILY PRN lisinopril 20 mg PO BID lorazepam 0.5 mg PO Q12H PRN 4 days metformin 1,000 mg PO BID Tobacco use date assessed: 05/10/24 Fall risk assessment: No Falls in past year Last assessed Fall Risk: 08/15/24 Dental Screening Dental Screen Date: 05/10/24 HPI Meds F/U HPI Details Ramiro is a 74 y/o M being evaluated today via telephone only ? Patient has a pmhx significant for DMII, HLD, GERD, HTN, obesity, Anxiety, CAD, Concern--> having lower back pain with radiculopathy. He has been using diclofenac which he does report some relieving his lower back pain Also has been having alot of leg cramps since starting clopidogrel Coronary artery disease: In March 2024 he presented with chest pain to [facility] and did have abnormal troponins. Echocardiogram showed a hyperdynamic ejection fraction and moderate aortic stenosis. He was sent to [facility] and did undergo a catheterization which did show coronary artery disease though no stent was placed. ? .. ? DMII: \ Does report blood sugars have been somewhat elevated lately to dietary indiscretion.? He has been working hard to lose weight and has lost a few lb since last office visit. ??Most recent A1c 11.1 from 10.. He continues with glipizide and metformin. PLAN:? We discussed the need to continue working on lifestyle modifications to reduce his weight.? We discussed perhaps starting a GLP-1 due to the added benefit of weight loss and patient is considering. HE CONTINUES TO DECLINE MY OFFER START INSULIN. ? .. ? Hyperlipidemia:? Cholesterol elevated in the setting of weight gain..?Though unfortunately he has been reluctant to start statin therapy.? Will continue to work on lifestyle to reduce his high cholesterol. PLAN:? Goal LDL to be below 100 ? .. ? .. ? HTN: Doesn't check his BP at home.? Blood pressure acceptable today in office. ? Has been compliant with his blood pressure medications ? Denies any CP, SOB, dizziness. PFSH Medical History Type 2 diabetes mellitus HTN (hypertension) HLD (hyperlipidemia) Normal colonoscopy Surgical History No pertinent past surgical history Family History Father Lung cancer Lymphoma Mother Intestinal cancer Brother Substance use disorder Social History Household Members: Family Housing: House Do you presently have visiting nurse or other home services: No Alcohol intake: never Comment: transfer from ED Patient Tobacco Use Status: Former Tobacco user e-Cigarette/Vaping Use: Never Used Second Hand Smoke Exposure: No service: No Current occupational status: employed Cognitive needs: No Hearing needs: No Vision needs: Yes Questionnaire Thrive Questionnaire Date Thrive assessed: 05/10/24 GERARD-7 AMB Questionnaire GERADR-7 Date GERARD - 7 assessed: 05/10/24 Source: Developed by Drs. Shayan Villegas, Casie Stafford, Reza Rene and colleagues, with an educational mack from [employer]. Review of Systems Const Denies headache(s) Eyes Denies loss of vision ENT Denies vertigo, Denies dizziness, Denies headache(s) and Denies sore throat Card Denies chest pain, Denies leg edema and Denies lightheadedness Resp Denies cough, Denies hemoptysis and Denies wheezing GI Denies abdominal pain, Denies melena, Denies constipation, Denies diarrhea and Denies vomiting Denies dysuria, Denies urinary frequency and Denies urinary urgency Musc Denies arthralgias, Denies joint swelling, Denies numbness and Denies tingling Neuro Denies behavioral changes, Denies vertigo, Denies dizziness, Denies headache(s), Denies loss of vision, Denies memory loss, Denies numbness and Denies tingling Psych Denies anxiety, Denies behavioral changes, Denies depression, Denies memory loss and Denies panic attacks Jacob/Lymph Denies easy bleeding and Denies easy bruising Aller/Immun Denies wheezing Physical exam (Primary Care) Tobacco/Smoking Status: Tobacco use Status Tobacco use date assessed 05/10/24 08/15/24 09:29 Patient Tobacco Use Status Former Tobacco user 08/15/24 09:29 e-Cigarette/Vaping Use Never Used 08/15/24 09:29 Thrive Assessment: Date of Thrive Assessment Date Thrive assessed 05/10/24 08/15/24 09:29 Telehealth Telehealth Telehealth Platform: Telephone Location of provider rendering services: practice address Location of patient: address on file Patient Identification confirmed using: Name, : Yes Telehealth method: voice only Patient verbally consented to treatment: Yes Patient verbally consented to billing insurance company: Yes Patient informed of any privacy concerns related to visit: Yes Minutes spent on Phone/Video with Pt.: 15 Coding Level of Care Code Tele Est Pt Level 4 (30034) Diagnoses Sciatica of right side M54.31 Essential hypertension I10 Hypertension type: essential hypertension Type 2 diabetes mellitus without complication, without long-term current use of insulin E11.9 Diabetes mellitus complication status: without complication 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 Unfortunately he is on dual antiplatelet therapy at this time and has a contraindication to NSAIDs. Will supply patient with a few days of prednisone to reduce inflammation. (2) HTN (hypertension): Code(s): I10 - Essential (primary) hypertension Category: Medical Qualifiers: Hypertension type: essential hypertension Qualified Code(s): I10 - Essential (primary) hypertension Plan: Patient reports his blood pressures at home have been stable. Continues on lisinopril 40 mg daily. Goal blood pressures to be below 140/90 (3) Type 2 diabetes mellitus: Code(s): E11.9 - Type 2 diabetes mellitus without complications Category: Medical Qualifiers: Diabetes mellitus complication status: without complication Diabetes mellitus assisted insulin use: without assisted use Qualified Code(s): E11.9 - Type 2 diabetes mellitus without complications Plan: Patient's most recent A1c at 11.1. We did discuss starting insulin and/or GLP 1 to help him gained some glycemic control though he adamantly declines. He will continue on glipizide and metformin for now and work on dietary and lifestyle modifications. Goal A1c is to be below 7.0 (4) Atherosclerotic cardiovascular disease: Code(s): I25.10 - Atherosclerotic heart disease of [place] coronary artery without angina pectoris Category: Medical Plan: Patient now followed by [facility], has not been able to tolerate statins due to high blood sugars. He reports he is going to use [id number] supplements including garlic to try to get his cholesterol down. Goal LDL is to be preferably in optimally below 70. Orders: Orders Complete Blood Count no Diff 08/15/24 I10 - Essential (primary) hypertension Comprehensive [place]. Panel Fast 08/15/24 I10 - Essential (primary) hypertension Microalbumin, Random (w Creat) 08/15/24 I10 - Essential (primary) hypertension Hemoglobin A1c 08/15/24 E11.9 - Type 2 diabetes mellitus without complications Lipid Panel 08/15/24 I25.10 - Atherosclerotic heart disease of [place] coronary artery without angina pectoris Medications: New prednisone 10 mg PO DAILY 7 tabs 0RF 7 days M54.31 - Sciatica, right side Patient Instructions: Goal: A1c to be below 7.0, LDL to be optimally below 70 Barriers: Adherence to physical activity and healthy eating habits
--- OUTSIDE RECORDS SUMMARY | 2024-08-15 10:16 | XMS_ITS | Patient Health Record ---
Author Organization [facility] Address [address] [place] [address] Care Team Providers Care Driver/Refuse Collector Name Role Phone Rigo Klein Primary Care Provider Unavailab Chetna Moncada Unavailable [phone] Sorin Kingsley Unavailable [phone] Allergies Allergen (clinical drug ingredient) Drug/Non Drug Allergy documented on EMR Reaction Allergy Type Onset Date Status amoxicillin Amoxicillin Unknown Drug Allergy Act yaad Penicillin Unknown Drug Allergy Active Results Component [...] Polyneuropathy due to type 2 diabetes mellitus (183605888) Type 2 diabetes mellitus with diabetic polyneuropathy (E11.42) Active confirmed Vital Signs Blood pressure diastolic 74 mm Hg 12/22/2023 Height 6ft 1in in 12/22/2023 Blood pressure systolic 120 mm Hg 12/22/2023 Weight 255 lbs 12/22/2023 BMI 33.64 kg/m2 12/22/2023 Procedures Procedure Date Ordered Date Performed Result Body Sit e 43134-MAIPUZH NAIL, 1-5 12/22/2023 N/A 80510-GNGY SKIN LESIONS, OVER 4 12/22/2023 N/A M3806-JCLRVOYS DYSTROPHIC NAILS ANY # 12/22/2023 N/A Encounters Encounter Location Date Provider Diagnosis [facility] [address] [place] [address] 09/16/2023 Sorin Kingsley Tinea unguium B35.1 ; [...] Ingrowing nail L60.0 and Tinea pedis B35.[address] [facility] [address] [address] 12/22/2023 Chetna Dunbar Tinea pedis of both [...] Treatment Pending Test Test Name Order Date 83275-TGZAZQA NAIL, 1-5 12/22/2023 72986-TDFF SKIN LESIONS, OVER 4 12/22/19 80508-KUUF SKIN LESIONS, OVER 4 07/10/19 20904-TAOK SKIN LESIONS, OVER 4 10/11/19 91153-ZGQP SKIN LESIONS, OVER 4 02/08/20 37007-DUFI SKIN LESIONS, OVER 4 05/30/19 00570-AMGN SKIN LESIONS, OVER 4 07/20/19 39381-QPDR SKIN LESIONS, OVER 4 09/21/19 58314-KAHP SKIN LESIONS, OVER 4 11/25/19 14402-QJFP SKIN LESIONS, OVER 4 02/10/20 03273-XRCN SKIN LESIONS, OVER 4 05/25/19 53713-VIZX SKIN LESIONS, OVER 4 08/22/19 68250-ZUEG SKIN LESIONS, OVER 4 11/21/19 43348-APFR SKIN LESIONS, OVER 4 03/28/19 45391-CDQS SKIN LESIONS, 2 TO 4 02/08/20 K9237-TJYALWFQ DYSTROPHIC NAILS ANY # K5873-NHUPJWSD DYSTROPHIC NAILS ANY # T7956-TBRCICUG DYSTROPHIC NAILS ANY # T7019-OODBDLMF DYSTROPHIC NAILS ANY # D3129-UIXLPKIR DYSTROPHIC NAILS ANY # H7747-SZFWKFCF DYSTROPHIC NAILS ANY # M7468-NDUGCZPJ DYSTROPHIC NAILS ANY # M9588-OHMHEVEA DYSTROPHIC NAILS ANY # Q1949-JJUNNCWC DYSTROPHIC NAILS ANY # T7885-CBGZKVHF DYSTROPHIC NAILS ANY # F8623-EZZHVYNQ DYSTROPHIC NAILS ANY # T9134-CQRGEVBK DYSTROPHIC NAILS ANY # H9581-FZEGDWRL DYSTROPHIC NAILS ANY # 97825-ZBTFLGMF OF HEMATOMA/FLUID 019 Insurance Providers Payer Name Payer Address Payer Phone Subscriber Number Group Number Insured Name Patient Relationship to Insured Coverage Start Date Coverage End Date Medicare National Gov[employer] Svcs Inc [address] [place] [address] [id number] Ramiro Rose Self - patient is the insured [address] [place] [address] [address] [place] [address] [id number] Ramiro Rose Self - patient is the insured Medical (General) History Medical History History ICD Code type II diabetes High blood pressure Measles Chicken pox Covid 19 Surgical History Surgery Date(Month/Year) tonsillectomy
== END 2024-08-15 11:57 | disposition home or self-care (01) ==
LOC: HO.HMCH 09:29
PROVIDERS: PCP Physician Assistant; Visit Provider Physician Assistant
DX: E11.9 Type 2 diabetes mellitus without complications (principal); M54.31 Sciatica, right side; I10 Essential (primary) hypertension; I25.10 Atherosclerotic heart disease of native coronary artery without angina pectoris

== ENCOUNTER → 2024-08-15 09:29 | Outpatient (BNVA) | payer MEDICARE, OTHER, SELFPAY | PROVIDERS: PCP Physician Assistant; Visit Provider Physician Assistant | DX: Z13.89 Encounter for screening for other disorder (principal) ==

== ENCOUNTER 2024-11-14 12:09 | Outpatient (REF) | payer MEDICARE, OTHER, SELFPAY ==
--- OUTSIDE RECORDS SUMMARY | 2023-12-21 05:00 | XMS_ITS ---
Author Organization [facility] Address [address] [place] [address] Care Team Providers Care French Binding Folder Name Role Phone Rigo Klein Primary Care Provider Unavailab Chetna Moncada [phone] Velez Encounters Encounter Location Date Provider Diagnosis [facility] [address] [place] [address] 12/21/2023 Chetna Dunbar Plan Of Treatment No Information Progress Notes * Ramiro CLAYTON JrDOB:[birth year] (74 yo M)Acc No.[id number]:12/21/2023 Progress Note Patient: Zuleika MAHERRamiro Jr Provider: Michael Dunbar DPM :1950 A ge:73 Y S ex:Male Date:12/21/2023 Address:[address] [place], [place] [id number] Pcp:Rigo Klein Subjective: * Chief Complaints: * [...] 1 Generated for Printi ng/Faxing/eTransmitting on: 0 11/14/2024 04:44 PM EDT
--- OUTSIDE RECORDS SUMMARY | 2024-03-09 05:15 | XMS_ITS ---
Author Organization [facility] Address [address] [place] [address] Care Team Providers Care Spray Drier Name Role Phone Rigo Klein Primary Care Provider Unavailab Chetna Moncada Unavailable [phone] Sorin Kingsley Unavailable [phone] REASON FOR VISIT Transfer to Different Provider Encounters Encounter Location Date Provider Diagnosis [facility] [address] [place] [address] 03/09/2024 Sorin Kingsley Plan Of Treatment No Information Progress Notes * Ramiro CLAYTON JrDOB:[birth year] (74 yo M)Acc No.[id number]:03/09/2024 Progress Note Patient: Zuleika Ramiro MAHER Jr Provider: Zuleika Kingsley DPM :1950 A ge:73 Y S ex:Male Date:03/09/2024 Address:[address] [place], [place] [id number] Pcp:Rigo Klein Subjective: * Chief Complaints: * [...] 03/09/2024 Generated for Chari donis/Aaliyah/Anaitting on: 0 11/14/2024 04:44 PM EDT
--- OUTSIDE RECORDS SUMMARY | 2024-03-09 05:15 | XMS_ITS ---
Author Organization [facility] Address [address] [place] [id number] Care Team Providers Care Returns Processor Name Role Phone Rigo Klein Primary Care Provider Unavailab Chetna Moncada [phone] Velez Encounters Encounter Location Date Provider Diagnosis [facility] [address] [place] [address] 03/09/2024 Chetna Dunbar Plan Of Treatment No Information Progress Notes * Ramiro CLAYTON JrDOB:[birth year] (74 yo M)Acc No.[id number]:03/09/2024 Progress Note Patient: Zuleika MAHERRamiro Jr Provider: Michael Dunbar DPM :1950 A ge:73 Y S ex:Male Date:03/09/2024 Address:[address] [place], [place] [id number] Pcp:Rigo Klein Subjective: * Chief Complaints: * [...] 03/09/2024 Generated for Printi ng/Faxing/eTransmitting on: 0 11/14/2024 04:44 PM EDT
--- OUTSIDE RECORDS SUMMARY | 2024-03-30 06:00 | XMS_ITS ---
Author Organization [facility] Address [address] [place] [id number] Care Team Providers Care School Lunch Monitor Name Role Phone Rigo Klein Primary Care Provider Unavailab Chetna Moncada Unavailable [phone] Encounters Encounter Location Date Provider Diagnosis [address] [address] 03/30/2024 Chetna Dunbar Plan Of Treatment No Information Progress Notes * Ramiro CLAYTON JrDOB:[birth year] (74 yo M)Acc No.[id number]:03/30/2024 Progress Note Patient: Zuleika MAHERRamiro Jr Provider: Michael Dunbar DPM :1950 A ge:73 Y S ex:Male Date:03/30/2024 Address:[address] [place], [place] [id number] Pcp:Rigo Klein Subjective: * Chief Complaints: * [...] 03/30/2024 Generated for Printi ng/Faxing/eTransmitting on: 0 11/14/2024 04:44 PM EDT
[2024-11-14 12:45] LABS: Hematocrit 36.0 % (42.0-52.0); Hemoglobin 12.4 g/dl (14.0-18.0); Mean Corpuscular HGB Conc 34.4 g/dl (31.0-36.0); Mean Corpuscular Hemoglobin 30.6 pg (27.0-33.0); Mean Corpuscular Volume 88.9 fL (80.0-98.0); NRBC Abs Auto 0.000 X10*3/uL (0.0-0.012); NRBC Pct Auto 0.0 /100WBC (0.0-0.2); Platelet Count 159 X10*3/uL (160-400); Red Blood Count 4.05 X10*6/uL (4.60-5.80); White Blood Count 5.1 X10*3/uL (4.8-10.8)
[2024-11-14 12:53] LABS: Hemoglobin A1C 226.0498 umol/L; Total Hemoglobin (HGBA1C) 3289.5018 umol/L
[2024-11-14 12:56] LABS: Alanine Aminotransferase 45 U/L (0-40); Albumin Level 4.4 g/dL (3.5-5.0); Alkaline Phosphatase 51 U/L (39-117); Anion Gap 12 (12-20); Aspartate Amino Transferase 35 U/L (5-37); Blood Urea Nitrogen 26 mg/dL (9-16); Calcium 9.3 mg/dL (8.4-10.2); Carbon Dioxide 27 mmol/L (22-29); Chloride 107 mmol/L (96-108); Cholesterol 164 mg/dL (<200); Estimated Glomerular Filt Rate > 60; HDL Cholesterol 33 mg/dL (>40); Potassium 4.5 mmol/L (3.3-5.1); Sodium 141 mmol/L (135-145); Total Protein 6.9 g/dL (6.5-8.0); Triglycerides 126 mg/dL (<150)
--- OUTSIDE RECORDS SUMMARY | 2024-11-14 16:44 | XMS_ITS | Patient Health Record ---
Author Organization [facility] Address [address] [place] [address] Care Team Providers Care Biomedical Photographer Name Role Phone Rigo Klein Primary Care Provider Unavailab Chetna Moncada Unavailable [phone] Sorin Kingsley Unavailable [phone] Allergies Allergen (clinical drug ingredient) Drug/Non Drug Allergy documented on EMR Reaction Allergy Type Onset Date Status amoxicillin Amoxicillin Unknown Drug Allergy Act ayad Penicillin Unknown Drug Allergy Active Reason For Referral No Information Medications Medication SIG (Take, Route, Frequency, Duration) Notes Start Date End Date Status metFORMIN HCl 1000 MG 1 tablet with a meal Orally Twice a day Active hydroCHLOROthiazide 25 MG 1 tablet in th e morning Orally Once a day; Duration: 30 day(s) Active Lisinopril 20 MG 1 [...] MG 1 capsule Orally Three times a day; Duration: 30 day(s) PRN Active steroids Not-Taking Doxycycline 9 months out of the year Active Papaya Enzyme Active LORazepam 0.5 MG 1 tablet as needed Orally every 6 hrs PRN Active Calcium Active Vitamin C Active Ciclopirox Olamine 0.77 % 1 application Externally Twice a day to skin of feet including between the toes; Duration: 30 days Active Vitamin B 12 Active Immunizations Vaccine Route Administration Date Status Comme nts Influenza Unknown 08/22/2019 Refused COVID-19 [employer] E[employer]ias/[place] Unknown 05/29/2021 R efused Social History Tobacco Use: Social History Observation [...] Polyneuropathy due to type 2 diabetes mellitus (756545895) Type 2 diabetes mellitus with diabetic polyneuropathy (E11.42) Active confirmed Vital Signs Blood pressure diastolic 74 mm Hg 12/22/2023 Height 6ft 1in in 12/22/2023 Blood pressure systolic 120 mm Hg 12/22/2023 Weight 255 lbs 12/22/2023 BMI 33.64 kg/m2 12/22/2023 Procedures Procedure Date Ordered Date Performed Result Body Sit e 54928-CDFRXSG NAIL, 1-5 12/22/2023 N/A 18240-MKEG SKIN LESIONS, OVER 4 12/22/2023 N/A H7120-PMGQDINH DYSTROPHIC NAILS ANY # 12/22/2023 N/A Encounters Encounter Location Date Provider Diagnosis [facility] [address] [place] [address] 12/22/2023 Chetna Dunbar Tinea pedis of both feet B35.3 ; Type 2 diabetes mellitus with diabetic polyneuropathy E11.42 and Tinea unguium B35.1 Assessments Encounter Date Diagnosis (ICD Code) Assessment Notes Treatment Notes Treatment Clinical Notes Section Notes 12/22/2023 Tinea pedis of both feet (ICD-10 - B35.3) 12/22/2023 Tinea unguium (ICD-10 - B35.1) 12/22/2023 Type 2 diabetes mellitus with diabetic polyneuropathy (ICD-10 - E11.42) Plan Of Treatment Pending Test Test Name Order Date 68717-NZCNXPH NAIL, 1-5 12/22/2023 97930-BLVU SKIN LESIONS, OVER 4 12/22/19 22852-WNZG SKIN LESIONS, OVER 4 07/10/19 07481-XRYO SKIN LESIONS, OVER 4 10/11/19 26757-UNXS SKIN LESIONS, OVER 4 02/08/20 40738-QEAB SKIN LESIONS, OVER 4 05/30/19 35790-HXBM SKIN LESIONS, OVER 4 07/20/19 93960-STZG SKIN LESIONS, OVER 4 09/21/19 28312-CSNP SKIN LESIONS, OVER 4 11/25/19 49852-LNVS SKIN LESIONS, OVER 4 02/10/20 01523-YKNB SKIN LESIONS, OVER 4 05/25/19 32687-YKZA SKIN LESIONS, OVER 4 08/22/19 46304-KOWE SKIN LESIONS, OVER 4 11/21/19 83379-FPQR SKIN LESIONS, OVER 4 03/28/19 17418-FQDJ SKIN LESIONS, 2 TO 4 02/08/20 E8898-GFRXAHYN DYSTROPHIC NAILS ANY # F7551-ZKGZSGVH DYSTROPHIC NAILS ANY # Q7644-SOFCDFJS DYSTROPHIC NAILS ANY # Q9365-UPECTYTS DYSTROPHIC NAILS ANY # P3396-MMHRQDVO DYSTROPHIC NAILS ANY # B4352-NIPQLRQY DYSTROPHIC NAILS ANY # Z0483-GKDASICQ DYSTROPHIC NAILS ANY # G1374-QNHFKBWQ DYSTROPHIC NAILS ANY # K4243-ZPVCNCBQ DYSTROPHIC NAILS ANY # S6356-AENPZNPB DYSTROPHIC NAILS ANY # B0470-ETJDLZFT DYSTROPHIC NAILS ANY # U1570-NMTZERQZ DYSTROPHIC NAILS ANY # E9731-UAJFYNQT DYSTROPHIC NAILS ANY # 53562-VKBBYWJD OF [place]/FLUID 019 Insurance Providers Payer Name Payer Address Payer Phone Subscriber Number Group Number Insured Name Patient Relationship to Insured Coverage Start Date Coverage End Date Medicare National Govt Svcs Inc [address] [place] [address] [id number] Ramiro Rose Self - patient is the insured [address] [place] [address] [address] [place] [address] [id number] Ramiro Rose Self - patient is the insured Medical (General) History Medical History History ICD Code type II diabetes High blood pressure Measles Chicken pox Covid 19 Surgical History Surgery Date(Month/Year) tonsillectomy
--- OUTSIDE RECORDS SUMMARY | 2024-11-14 16:44 | XMS_ITS | Patient Health Record ---
Author Organization [facility] Address [address] [place] [address] Care Team Providers Care Economic Research Assistant Name Role Phone Sylvia(inactive) Christopher ARREDONDO Primary Care Provider U Shayan Styles [phone] Allergies Allergen (clinical drug ingredient) Drug/Non Drug Allergy documented on EMR Reaction Allergy Type Onset Date Status Penicillin Unknown Drug Allergy Active Reason For Referral No Information Medications Medication SIG (Take, Route, Frequency, Duration) Notes Start Date End Date Status Lisinopril 20 MG 1 Orally BID Active glipiZIDE 10 MG 1 tablet Orally Once a day Active hydroCHLOROthiazide 25 MG 1 tablet Orally Once a day Active Doxycycline Hyclate 20 MG 1 tablet Orall y Twice a day Active metFORMIN HCl 1000 MG 1 tablet with meal s Orally Twice a day Active Multi Vitamin/Minerals - Orally Active Lansoprazole 30 MG 1 capsule Orally prn Active Problems Problem Type SNOMED Code ICD Code Onset Dates Problem Status W/U Status Risk Notes Problem [id number] Encounter for screening for malignant neoplasm of colon (Z12.11) Active confirmed Problem Screening for malignant neoplasm of rectum (007158481) Encounter for screening for malignant neoplasm of rectum (Z12.12) Active confirmed Problem 025983507 Preprocedural examination (Z01.818) Active confirmed Problem 671846450 Fatty liver (K76.0) Active confirmed Plan Of Treatment Pending Test Test Name Order Date LIVER PROFILE 05/23/2016 Future Test Test Name Order Date COLONOSCOPY 05/23/2016 Insurance Providers Payer Name Payer Address Payer Phone Subscriber Number Group Number Insured Name Patient Relationship to Insured Coverage Start Date Coverage End Date [facility] [address] [place], [place] [id number] BHAVIN CLAYTON Self - patient is the insured Medical (General) History Medical History History ICD Code Negative screening colonoscopy 06-25-2005 Fatty liver with elevated LF T's--otherwise neg. w/u in 1994 including an abdominal ultrasound consistent with fatty liver, negative hepatitis B and C studies, and normal iron studies Denies PR,CVA,Lung disease,renal disease NIDDM Sigmoid Diverticulitis in 2014 Kidney stones HTN Sleep apnea--not using the CPAP Surgical History Surgery Date(Month/Year) tonsillectomy
== END 2024-11-14 12:10 | disposition home or self-care (01) ==
LOC: HO.10HDL 12:09
PROVIDERS: Visit Provider Physician Assistant
DX: I10 Essential (primary) hypertension (principal); E11.9 Type 2 diabetes mellitus without complications; I25.10 Atherosclerotic heart disease of native coronary artery without angina pectoris
CPT/HCPCS: 36415; 80053; 80061; 83036; 85027

== ENCOUNTER 2024-11-16 09:21 | Outpatient (AMB) | payer MEDICARE, OTHER, SELFPAY ==
--- OUTSIDE RECORDS SUMMARY | 2023-12-21 05:00 | XMS_ITS ---
Author Organization [facility] Address [address] [place] [address] Care Team Providers Care Packaging Engineer Name Role Phone Rigo Klein Primary Care Provider Unavailab Chetna Moncada [phone] Velez Encounters Encounter Location Date Provider Diagnosis [facility] [address] [place] [address] 12/21/2023 Chetna Dunbar Plan Of Treatment No Information Progress Notes * Ramiro CLAYTON JrDOB:[birth year] (74 yo M)Acc No.[id number]:12/21/2023 Progress Note Patient: Zuleika MAHERRamiro Jr Provider: Michael Dunbar DPM :1950 A ge:73 Y S ex:Male Date:12/21/2023 Address:[address] [place], [place] [id number] Pcp:Rigo Klein Subjective: * Chief Complaints: * [address] Velez. * Medical History: Objective: * Vitals: Assessment: Plan: * Treatment: * Images: * The named appointment provid er may or may not be the originator of this progress note, and it is not deemed complete until electronically signed by the appointment provider. Sign off status: Pending * Provider: Michael Dunbar DPM Date: 1 Generated for Printi ng/Faxing/eTransmitting on: 0 11/16/2024 11:01 AM EDT
--- OUTSIDE RECORDS SUMMARY | 2024-03-09 05:15 | XMS_ITS ---
Author Organization [facility] Address [address] [place] [address] Care Team Providers Care Health Consultant Name Role Phone Rigo Klein Primary Care Provider Unavailab Chetna Moncada [phone] Velez Encounters Encounter Location Date Provider Diagnosis [facility] [address] [place] [address] 03/09/2024 Chetna Dunbar Plan Of Treatment No Information Progress Notes * Ramiro CLAYTON JrDOB:[birth year] (74 yo M)Acc No.[id number]:03/09/2024 Progress Note Patient: Zuleika MAHRERamiro Jr Provider: Michael Dunbar DPM :1950 A ge:73 Y S ex:Male Date:03/09/2024 Address:[address] [place], [place] [id number] Pcp:Rigo Klein Subjective: * Chief Complaints: * [address] Velez. * Medical History: Objective: * Vitals: Assessment: Plan: * Treatment: * Images: * The named appointment provid er may or may not be the originator of this progress note, and it is not deemed complete until electronically signed by the appointment provider. Sign off status: Pending * Provider: Michael Dunbar DPM Date: 0 03/09/2024 Generated for Printi ng/Faxing/eTransmitting on: 0 11/16/2024 11:01 AM EDT
--- OUTSIDE RECORDS SUMMARY | 2024-03-09 05:15 | XMS_ITS ---
Author Organization [facility] Address [address] [place] [address] Care Team Providers Care Remote Broadcast Technician Name Role Phone Rigo Klein Primary Care Provider Unavailab Chetna Moncada Unavailable [phone] Sorin Kingsley Unavailable [phone] REASON FOR VISIT Transfer to Different Provider Encounters Encounter Location Date Provider Diagnosis [facility] [address] [place] [address] 03/09/2024 Sorin Kingsley Plan Of Treatment No Information Progress Notes * Ramiro CLAYTON JrDOB:[birth year] (74 yo M)Acc No.[id number]:03/09/2024 Progress Note Patient: Zuleika Ramiro MAHER Jr Provider: Zuleika Kingsley DPM :1950 A ge:73 Y S ex:Male Date:03/09/2024 Address:[address] [place], [place] [id number] Pcp:Rigo Klein Subjective: * Chief Complaints: * 1 . Transfer to Different Provider. * Medical History: Objective: * Vitals: Assessment: Plan: * Treatment: * Images: * The named appointment provid er may or may not be the originator of this progress note, and it is not deemed complete until electronically signed by the appointment provider. Sign off status: Pending * Provider: Zuleika Kingsley DPM Date: 0 03/09/2024 Generated for Chari donis/Aaliyah/Anaitting on: 0 11/16/2024 11:01 AM EDT
--- OUTSIDE RECORDS SUMMARY | 2024-03-30 06:00 | XMS_ITS ---
Author Organization [facility] Address [address] [place] [id number] Care Team Providers Care Recreation Counselor Name Role Phone Rigo Klein Primary Care Provider Unavailab Chetna Moncada Unavailable [phone] Encounters Encounter Location Date Provider Diagnosis [address] [address] 03/30/2024 Chetna Dunbar Plan Of Treatment No Information Progress Notes * Ramiro CLAYTON JrDOB:[birth year] (74 yo M)Acc No.[id number]:03/30/2024 Progress Note Patient: Zuleika MAHERRamiro Jr Provider: Michael Dunbar DPM :1950 A ge:73 Y S ex:Male Date:03/30/2024 Address:[address] [place], [place] [id number] Pcp:Rigo Klein Subjective: * Chief Complaints: * * Medical History: Objective: * Vitals: Assessment: Plan: * Treatment: * Images: * The named appointment provid er may or may not be the originator of this progress note, and it is not deemed complete until electronically signed by the appointment provider. Sign off status: Pending * Provider: Michael Dunbar DPM Date: 0 03/30/2024 Generated for Printi ng/Faxing/eTransmitting on: 0 11/16/2024 11:01 AM EDT
--- NOTE | 2024-11-16 09:29 | A.OFFPC_ITS ---
Vital Signs 11/16/24 09:30 11/16/24 10:13 Height 6 ft 1 in Weight 252 lb 8 oz BMI 33.3 BP 140/60 H 132/70 Blood Pressure Location Lt brachial Position Sitting Pulse 66 Pulse Source Pulse Oximeter Temp 97.1 F Temp Source Temporal Artery Scan Pulse Oximetry (%) 98 Oxygen Delivery Method Room Air Intake Visit Reasons: f/u DMII - see comments Intake Note: Patient is here to follow up on DM. Gatehouse Attendant Required: No Winery Worker: Not Required per policy Accompanied by: Self / Same As Patient Allergies penicillin V Allergy (Unknown, Verified 11/16/24 09:58) rash, swelling Medication List - Last Reconciled 11/16/24 by Rigo Klein PA-C aspirin 81 mg PO DAILY ciclopirox 0.77% appl topical BID clopidogrel 75 mg PO DAILY 90 days fluoride (sodium) 1.1% dental glipizide 10 mg PO BID hydrochlorothiazide 25 mg PO DAILY lansoprazole 30 mg PO DAILY PRN lisinopril 20 mg PO BID lorazepam 0.5 mg PO Q12H PRN 4 days metformin 1,000 mg PO BID Tobacco use date assessed: 11/16/24 Fall risk assessment: No Falls in past year Last assessed Fall Risk: 11/16/24 Dental Screening Dental Screen Date: 05/10/24 HPI f/u DMII - see comments HPI Details Ramiro is a 74 y/o M here today for follow-up visit ? Patient has a pmhx significant for DMII, HLD, GERD, HTN, obesity, Anxiety, CAD, Concern--> Coronary artery disease: In March 2024 he presented with chest pain to [facility] and did have abnormal troponins. Echocardiogram showed a hyperdynamic ejection fraction and moderate aortic stenosis. He was sent to [facility] and did undergo a catheterization which did show moderate coronary artery disease though no stent was placed. He was on statins for short period of time though had noted hyperglycemia with the medication in his stopped. He continues to use garlic again Orwell threes which he believes is controlling his cholesterol. Most recent lipid panel showing borderline high total cholesterol and LDL above 100. ? .. ? DMII: \ patient has been working on diet and exercise, has been able to lose weight since last office visit. A1c is improved. In the past he has been able to get off of diabetic medication with strict diet and life style management. ?? PLAN:? He continues on metformin and glipizide. He plans on losing more weight and weaning off of diabetic medication.. We discussed the need to continue working on lifestyle modifications to reduce his weight.? We discussed perhaps starting a GLP-1 due to the added benefit of weight loss and patient is considering. HE CONTINUES TO DECLINE MY OFFER START INSULIN. ? .. ? Hyperlipidemia:? As above patient's cholesterol panel slightly elevated, has been off statin therapy due to reports of hyperglycemia?Though unfortunately he has been reluctant to restart statin therapy.? Will continue to work on lifestyle to reduce his high cholesterol. PLAN:? Goal LDL to be below 100 ? .. ? .. ? HTN: Doesn't check his BP at home.? Blood pressure acceptable today in office. ? Has been compliant with his blood pressure medications ? Denies any CP, SOB, dizziness. [facility] Medical History Type 2 diabetes mellitus HTN (hypertension) HLD (hyperlipidemia) Normal colonoscopy Surgical History No pertinent past surgical history Family History Father Lung cancer Lymphoma Mother Intestinal cancer Brother Substance use disorder Social History Household Members: Family Housing: House Do you presently have visiting nurse or other home services: No Alcohol intake: never Comment: transfer from ED Patient Tobacco Use Status: Former Tobacco user e-Cigarette/Vaping Use: Never Used Second Hand Smoke Exposure: Yes service: No Current occupational status: employed Cognitive needs: No Hearing needs: No Vision needs: Yes Questionnaire Thrive Questionnaire Date Thrive assessed: 05/10/24 I am a: Patient What is your living situation today?: I have a steady place to live Within the past 12 months, did the food you bought not last and you didn't have the money to get more?: Never true Within the past 12 months, did you worry whether your food would run out before you got money to buy more?: Never true Do you have trouble paying for medicines?: I choose not to answer this question Do you have trouble getting transportation to medical appointments?: No Do you have trouble paying your heating and electricity bill?: No Do you have trouble taking care of your child, family member or friend?: No Do you have trouble with day-to-day activities such as bathing, preparing meals, shopping, managing finances, etc.?: No Are you currently unemployed and looking for a job?: No Are you interested in more education?: No Please select the resources that you would like help with: None Currently or been in a relationship where the following occur: I choose not to answer THRIVE Score: 0 AUDIT C Alcohol Use Questionnaire (AUDIT-C) 1. How often do you have a drink containing alcohol?: Never 2. How many drinks containing alcohol do you have on a typical day when you are drinking?: 1 or 2 3. How often do you have six or more drinks on one occasion?: Never Total Score: 0 GERARD-7 AMB Questionnaire GERARD-7 Date GERARD - 7 assessed: 05/10/24 Feeling nervous, anxious, or on edge: 0 = Not at all Not being able to stop or control worryin = Not at all Worrying too much about different things: 0 = Not at all Trouble relaxin = Not at all Being so restless that it is hard to sit still: 0 = Not at all Becoming easily annoyed or irritable: 0 = Not at all Feeling afraid as if something awful might happen: 0 = Not at all Total GERARD-7 score (0-4 normal; 5-9 mild; 10-14 moderate; 15-21 severe): 0 Source: Developed by Drs. Shayan Villegas, Casie Stafford, Reza Rene and colleagues, with an educational mack from [employer]. Review of Systems Const Denies headache(s) Eyes Denies loss of vision ENT Denies vertigo, Denies dizziness, Denies headache(s) and Denies sore throat Card Denies chest pain, Denies leg edema and Denies lightheadedness Resp Denies cough, Denies hemoptysis and Denies wheezing GI Denies abdominal pain, Denies melena, Denies constipation, Denies diarrhea and Denies vomiting Denies dysuria, Denies urinary frequency and Denies urinary urgency Musc Denies arthralgias, Denies joint swelling, Denies numbness and Denies tingling Neuro Denies Abnormal speech present, Denies behavioral changes, Denies vertigo, Denies dizziness, Denies headache(s), Denies loss of vision, Denies memory loss, Denies numbness and Denies tingling Psych Denies anxiety, Denies behavioral changes, Denies depression, Denies memory loss and Denies panic attacks Jacob/Lymph Denies easy bleeding and Denies easy bruising Aller/Immun Denies wheezing Physical exam (Primary Care) Vital Signs: Last Vital Signs Temp 97.1 F 11/16/24 09:30 Pulse 66 11/16/24 09:30 BP 132/70 11/16/24 10:13 Pulse Ox 98 11/16/24 09:30 Oxygen Delivery Method Room Air 11/16/24 09:30 BMI result Body Mass Index 33.3 BMI Assessment/Plan discussion: High BMI High, discussed plan: lifestyle, weight reduction, dietary and physical activity Tobacco/Smoking Status: Tobacco use Status Tobacco use date assessed 11/16/24 11/16/24 09:35 Patient Tobacco Use Status Former Tobacco user 11/16/24 09:35 e-Cigarette/Vaping Use Never Used 11/16/24 09:35 Thrive Assessment: Date of Thrive Assessment Date Thrive assessed 05/10/24 11/16/24 09:35 Currently or been in a relationship where the following occur: I choose not to answer Const General: healthy appearing, no acute distress, alert and awake Nutritional Appearance: well nourished Orientation/consciousness: oriented to person, oriented to place and oriented to time [facility] Ears: TM's normal bilaterally General nose exam: Normal nasal mucous membranes and turbinates present Eyes Conjunctivae: conjunctivae normal Sclerae: sclerae normal Pupils: Equal, round and reactive pupils present Neck Neck: Yes no lymphadenopathy and Yes no JVD Thyroid: Thyroid normal Carotids: no bruits Resp Effort & Inspection: normal respiratory effort and not tachypneic Auscultation: no crackles, no rales, no rhonchi and no wheezes Cardio Rate: regular rate Rhythm: regular rhythm Heart sounds: no murmurs and normal S1 and S2 GI Palpation (GI): Soft to palpation, nontender, no hepatomegaly and no splenomegaly Auscultation: normal bowel sounds Skin General skin exam: no rashes or lesions noted and dry skin Neuro General: oriented to person, oriented to place and oriented to time Cranial nerves: Yes Equal, round and reactive pupils present Speech: No Abnormal speech present Gait exam (Neuro): Normal gait present Motor exam (neuro): no tremor noted Extrem Right upper extremity: full ROM Left upper extremity: full ROM Right lower extremity: full ROM; no edema Left lower extremity: full ROM; no edema Psych Mental Status: mental status grossly normal Speech and movement: Normal speech and movement present Affect: normal affect Attitude: cooperative Thought process: Normal thought process present Coding Level of Care Code Est Pt Level 4 (04330) Diagnoses Type 2 diabetes mellitus without complication, without long-term current use of insulin E11.9 Diabetes mellitus complication status: without complication Diabetes mellitus terminal operations manager insulin use: without terminal operations manager use Essential hypertension I10 Hypertension type: essential hypertension Atherosclerotic cardiovascular disease I25.10 Mitral annular calcification I34.81 Class 1 obesity E66.811 Assessment & Plan Assessment & Plan (1) Type 2 diabetes mellitus: Code(s): E11.9 - Type 2 diabetes mellitus without complications Category: Medical Qualifiers: Diabetes mellitus complication status: without complication Diabetes mellitus terminal operations manager insulin use: without penitentiary use Qualified Code(s): E11.9 - Type 2 diabetes mellitus without complications Plan: Patient's type 2 diabetes suboptimally controlled. A1c has improved to 8.4 from 11.1. We did discuss starting insulin and/or GLP 1 to help him gained some glycemic control though he adamantly declines. He will continue on glipizide and metformin for now and work on dietary and lifestyle modifications. Goal A1c is to be below 7.0 (2) HTN (hypertension): Code(s): I10 - Essential (primary) hypertension Category: Medical Qualifiers: Hypertension type: essential hypertension Qualified Code(s): I10 - Essential (primary) hypertension Plan: Patient reports his blood pressures at home have been stable. Continues on lisinopril 40 mg daily. Goal blood pressures to be below 140/90 (3) Atherosclerotic cardiovascular disease: Code(s): I25.10 - Atherosclerotic heart disease of [place] coronary artery without angina pectoris Category: Medical Plan: Patient now followed by [facility], has not been able to tolerate statins due to high blood sugars. He reports he is going to use [id number]-[id number] supplements including garlic to try to get his cholesterol down. Goal LDL is to be preferably in optimally below 70. (4) Mitral annular calcification: Code(s): I34.81 - Nonrheumatic mitral (valve) annulus calcification Category: Medical Plan: Severe mitral annular calcification on the echocardiogram. No valvular dysfunction. (5) Class 1 obesity: Code(s): E66.811 - Obesity, class 1 Category: Medical Plan: Patient does understand his BMI is over 30 will continue working on being more physically active and adapting to better eating habits to reduce his weight Orders: Orders Comprehensive [place]. Panel Fast 11/16/24 E11.9 - Type 2 diabetes mellitus without complications Complete Blood Count no Diff 11/16/24 E11.9 - Type 2 diabetes mellitus without complications Lipid Panel 11/16/24 I25.10 - Atherosclerotic heart disease of [place] coronary artery without angina pectoris Prostate Specific Antigen Scr 11/16/24 I25.10 - Atherosclerotic heart disease of [place] coronary artery without angina pectoris, Z12.5 - Encounter for screening for malignant neoplasm of prostate Patient Instructions: Goal: A1c to be below 7.0, blood pressure to remain below 140/90. Optimal LDL to be below 70 Barriers: Adherence to physical activity and healthy eating habits
[2024-11-16 09:30] VITALS: BP 140/60; PULSE 66; TEMP 36.2; O2SAT 98; BMI 33.3
[2024-11-16 10:13] VITALS: BP 132/70
--- OUTSIDE RECORDS SUMMARY | 2024-11-16 11:01 | XMS_ITS | Patient Health Record ---
Author Organization [facility] Address [address] [place] [address] Care Team Providers Care Sales Director Name Role Phone Sylvia(inactive) Christopher ARREDONDO Primary Care Provider U Shayan Styles [phone] Allergies Allergen (clinical drug ingredient) Drug/Non Drug [...] Problem Status W/U Status Risk Notes Problem 816208425 Encounter for screening for malignant neoplasm of colon (Z12.11) Active confirmed Problem Screening for malignant neoplasm of rectum (917266176) Encounter for screening for malignant neoplasm of rectum (Z12.12) Active confirmed Problem 904993928 Preprocedural examination (Z01.818) Active confirmed Problem 007136296 Fatty liver (K76.0) Active confirmed Plan Of Treatment Pending Test Test Name Order Date LIVER PROFILE 05/23/2016 Future Test Test Name Order Date COLONOSCOPY 05/23/2016 Insurance Providers Payer Name Payer Address Payer Phone Subscriber Number Group Number Insured Name Patient Relationship to Insured Coverage Start Date Coverage End Date [facility] [address] [place], [place] [id number] HBAVIN CLAYTON Self - patient is the insured Medical (General) History Medical History History ICD Code Negative screening colonoscopy 06-25-2005 Fatty liver with elevated LF T's--otherwise neg. w/u in 1994 including an abdominal ultrasound consistent with fatty liver, negative hepatitis B and C studies, and normal iron studies Denies [place],CVA,Lung disease,renal disease NIDDM Sigmoid Diverticulitis in 2014 Kidney stones HTN Sleep apnea--not using the CPAP Surgical History Surgery Date(Month/Year) tonsillectomy
--- OUTSIDE RECORDS SUMMARY | 2024-11-16 11:01 | XMS_ITS | Patient Health Record ---
Author Organization [facility] Address [address] [facility] [place] [address] Care Team Providers Care Billing Assistant Name Role Phone Rigo Klein Primary Care Provider Unavailab Chetna Moncada Unavailable [phone] Sorin Kingsley Unavailable [phone] Allergies Allergen (clinical drug ingredient) Drug/Non Drug [...] Polyneuropathy due to type 2 diabetes mellitus (393439989) Type 2 diabetes mellitus with diabetic polyneuropathy (E11.42) Active confirmed Vital Signs Blood pressure diastolic 74 mm Hg 12/22/2023 Height 6ft 1in in 12/22/2023 Blood pressure systolic 120 mm Hg 12/22/2023 Weight 255 lbs 12/22/2023 BMI 33.64 kg/m2 12/22/2023 Procedures Procedure Date Ordered Date Performed Result Body Sit e 68433-BPSGMPX NAIL, 1-5 12/22/2023 N/A 38429-CJBQ SKIN LESIONS, OVER 4 12/22/2023 N/A F1111-UCFDMMUZ DYSTROPHIC NAILS ANY # 12/22/2023 N/A Encounters Encounter Location Date Provider Diagnosis [facility] [address] [place] [address] 12/22/2023 Chetna Dunbar Tinea pedis of both [...] Treatment Pending Test Test Name Order Date 02322-BKNRTVU NAIL, 1-5 12/22/2023 88210-CUGX SKIN LESIONS, OVER 4 12/22/19 00006-UDIE SKIN LESIONS, OVER 4 07/10/19 99591-VYDF SKIN LESIONS, OVER 4 10/11/19 17061-ERTB SKIN LESIONS, OVER 4 02/08/20 37545-FZHC SKIN LESIONS, OVER 4 05/30/19 00348-APVE SKIN LESIONS, OVER 4 07/20/19 15901-LQQR SKIN LESIONS, OVER 4 09/21/19 67775-MFQS SKIN LESIONS, OVER 4 11/25/19 04785-ASDH SKIN LESIONS, OVER 4 02/10/20 72870-RZMW SKIN LESIONS, OVER 4 05/25/19 45304-LGNX SKIN LESIONS, OVER 4 08/22/19 95649-JEFM SKIN LESIONS, OVER 4 11/21/19 60722-QYKD SKIN LESIONS, OVER 4 03/28/19 66368-NFNX SKIN LESIONS, 2 TO 4 02/08/20 M3301-IDDYTTYH DYSTROPHIC NAILS ANY # B4726-YALLGFRB DYSTROPHIC NAILS ANY # X9416-SXTEJOHC DYSTROPHIC NAILS ANY # V8419-LYWVSFEU DYSTROPHIC NAILS ANY # G0532-KUFASFJS DYSTROPHIC NAILS ANY # A0209-VDJPCKOD DYSTROPHIC NAILS ANY # K0126-MDATRPEC DYSTROPHIC NAILS ANY # M0410-IFOOQIBC DYSTROPHIC NAILS ANY # Y4841-AZLKHJCP DYSTROPHIC NAILS ANY # O3139-ZXOAYSDM DYSTROPHIC NAILS ANY # K8625-SKVKCRNV DYSTROPHIC NAILS ANY # N3925-BBVYHZIV DYSTROPHIC NAILS ANY # U5320-JQBKYKDF DYSTROPHIC NAILS ANY # 15496-IHAJORON OF HEMATOMA/FLUID 019 Insurance Providers Payer Name Payer Address Payer Phone Subscriber Number Group Number Insured Name Patient Relationship to Insured Coverage Start Date Coverage End Date Medicare National Govt Svcs Inc [address] [place] [address] [id number] Ramiro Rose Self - patient is the insured [address] [place] [address] [address] [place] [address] [id number] Ramiro Rose Self - patient is the insured Medical (General) History Medical History History ICD Code type II diabetes High blood pressure Measles Chicken pox Covid 19 Surgical History Surgery Date(Month/Year) tonsillectomy
== END 2024-11-16 10:21 | disposition home or self-care (01) ==
LOC: HO.HMCH 09:22
PROVIDERS: PCP Physician Assistant; Visit Provider Physician Assistant
DX: E11.9 Type 2 diabetes mellitus without complications (principal); E66.811 Obesity, class 1; Z68.33 Body mass index [BMI] 33.0-33.9, adult; I10 Essential (primary) hypertension; I25.10 Atherosclerotic heart disease of native coronary artery without angina pectoris; I34.81 Nonrheumatic mitral (valve) annulus calcification

== ENCOUNTER → 2024-11-16 09:21 | Outpatient (BNVA) | payer MEDICARE, OTHER, SELFPAY | PROVIDERS: PCP Physician Assistant; Visit Provider Physician Assistant | DX: E11.9 Type 2 diabetes mellitus without complications (principal); E78.5 Hyperlipidemia, unspecified; K21.9 Gastro-esophageal reflux disease without esophagitis; I10 Essential (primary) hypertension; F41.9 Anxiety disorder, unspecified; I25.10 Atherosclerotic heart disease of native coronary artery without angina pectoris; I34.81 Nonrheumatic mitral (valve) annulus calcification; E66.811 Obesity, class 1; Z68.33 Body mass index [BMI] 33.0-33.9, adult | CPT/HCPCS: 99212 ==

== ENCOUNTER 2025-02-06 11:55 | Outpatient (REF) | payer MEDICARE, OTHER, SELFPAY ==
[2025-02-06 13:07] LABS: Hematocrit 40.5 % (42.0-52.0); Hemoglobin 13.3 g/dl (14.0-18.0); Mean Corpuscular HGB Conc 32.8 g/dl (31.0-36.0); Mean Corpuscular Hemoglobin 29.9 pg (27.0-33.0); Mean Corpuscular Volume 91.0 fL (80.0-98.0); NRBC Abs Auto 0.000 X10*3/uL (0.0-0.012); NRBC Pct Auto 0.0 /100WBC (0.0-0.2); Platelet Count 148 X10*3/uL (160-400); Red Blood Count 4.45 X10*6/uL (4.60-5.80); White Blood Count 5.4 X10*3/uL (4.8-10.8)
[2025-02-06 13:18] LABS: Alanine Aminotransferase 37 U/L (0-40); Albumin Level 4.4 g/dL (3.5-5.0); Alkaline Phosphatase 54 U/L (39-117); Anion Gap 9 (12-20); Aspartate Amino Transferase 33 U/L (5-37); Blood Urea Nitrogen 30 mg/dL (9-16); Calcium 9.3 mg/dL (8.4-10.2); Carbon Dioxide 30 mmol/L (22-29); Chloride 107 mmol/L (96-108); Cholesterol 197 mg/dL (<200); Estimated Glomerular Filt Rate > 60; HDL Cholesterol 39 mg/dL (>40); Potassium 4.4 mmol/L (3.3-5.1); Sodium 142 mmol/L (135-145); Total Protein 6.8 g/dL (6.5-8.0); Triglycerides 113 mg/dL (<150)
[2025-02-06 13:39] LABS: Microalbum/Creatinine Ratio Ur 113.7 ug/mg cr (<30)
== END 2025-02-06 11:56 | disposition home or self-care (01) ==
LOC: HO.10HDL 11:55
PROVIDERS: Visit Provider Physician Assistant
DX: Z12.5 Encounter for screening for malignant neoplasm of prostate (principal); E11.9 Type 2 diabetes mellitus without complications; I25.10 Atherosclerotic heart disease of native coronary artery without angina pectoris; I10 Essential (primary) hypertension
CPT/HCPCS: 36415; 80053; 80061; 82043; 82570; 84153; 85027

== ENCOUNTER → 2025-02-10 09:54 | Outpatient (REF) | payer MEDICARE, OTHER, SELFPAY ==
--- NOTE | 2025-02-10 10:04 | CA_ITS ---
Transthoracic Echocardiogram Patient (Last, First, Middle): Ramiro Rose Jr, E Gender: M Date of : 1950 Age: 74 Procedure Date: 02/10/2025 Procedure Type: Transthoracic Echocardiogram Location: OP Height: 185.42 cm Weight: 108.86 kg BSA: 2.33 m2 Heart Rate: bpm BP: 138 / 80 mmHg Crude Unit Operator: TO Referring MD: Ar Amin MD Flux Plant Operator: Oliver Pierce MD Symptoms: I35.0 - Nonrheumatic aortic (valve) stenosis Study Quality: Adequate w contrast ECG Rhythm: Sinus Conclusions: - 1. Normal LV ejection fraction of 60-65% with mild LVH with impaired relaxation filling pattern 2. At least moderately dilated left atrium 3. Moderately severe to severe aortic stenosis with mean gradient of 48 mm Hg and valve area calculated at 1.17 cm2 4. Mild aortic regurgitation 5. Severe mitral annular calcification 6. Normal RV systolic pressure 7. Mildly dilated ascending aorta 8. No gross pericardial effusion Findings Procedure Information Contrast agent, definity, is being given per protocol without apparent complications. Left Ventricle Normal left ventricular size and systolic function. There is mildly increased left ventricular wall thickness. The visually estimated ejection fraction is between 60-65%. Spectral Doppler is indicative of an impaired relaxation filling pattern. Right Ventricle Normal right ventricular cavity size and systolic function. Atria The left atrium is moderately dilated. There is no evidence of interatrial shunt. The right atrium is mildly dilated. Aortic Valve There is moderate calcification of the aortic valve. There is moderate thickening of the aortic valve. There is moderate to severe aortic valve stenosis. The peak aortic gradient is 74 mmHg.The mean gradient is 48 mmHg. The aortic valve area is 1.17 cm2. There is mild aortic valve regurgitation. Mitral Valve There is moderate anterior and severe posterior mitral leaflet thickening. There is severe mitral annular calcification. Pulmonic Valve The pulmonic valve is likely normal. Tricuspid Valve There is trace tricuspid valve regurgitation. The right ventricular systolic pressure is normal. The right ventricular systolic pressure is 20 mmHg. Normal right atrial pressure. There is no evidence of pulmonary hypertension. Great Vessels The pulmonary artery was not well visualized. There is mild dilatation of the ascending aorta measuring 4.10 cm. Small plaque is seen in the sino tubular ridge. Venous The inferior vena cava is normal in size and collapses greater than 50% with inspiration. Pericardium/Pleural There is no evidence of pericardial effusion. Prior Study Comparison Changes noted compared to prior study dated: 03/28/2024. aortic stenosis has progressed Measurements 2D Linear Measurements IVSd: 1.19 0.6-0.9/0.6-1.0 cm LVIDd: 5.42 3.9-5.3/4.2-5.9 cm LVIDd Index: 2.33 2.4-3.2/2.2-3.1 cm/m2 LVIDs: 3.77 2.0-3.6 cm LVPWd: 1.26 0.7-1.1 cm LA Diam: 5.00 2.7-3.8/3.0-4.0 cm LAIDs Index: 2.15 1.5-2.3 cm/m2 LV Mass: 341.35 67-162/88-224 g LV Mass Index: 146.50 43-95/49-115 g/m2 LVOT Diam: 2.40 3.0+(-)1.3 cm 2D Systolic Function EF 4C: 68.30 >55% EF 2C: 58.90 >55% EF BiP: 62.10 >55% Mitral Valve MV VTI: 0.53 MV Pk Blake: 1.59 MV Mn Blake: 0.92 MV Pk Grad: 10.00 MV Mn Grad: 4.00 MV Pk E: 1.55 MV PK A: 1.40 MV Decel Time: 336.00 E/A: 1.10 E'Lateral: 5.87 E'Medial: 3.92 E/E' Med: 39.50 E/E' Lat: 26.40 PHT: 98.00 MVA PHT: 2.24 MVA Continuity: 2.34 [place]: 4.61 Aortic Valve AoV Pk Blake: 4.29 AoV Mn Blake: 3.30 AoV VTI: 1.06 AoV Pk Grad: 74.00 Aov Mn Grad: 48.00 DEWAYNE Cont.VTI: 1.17 LVOT LVOT Pk Blake: 1.28 LVOT Mn Blake: 0.95 LVOT VTI: 0.28 LVOT Pk Grad: 7.00 LVOT Mn Grad: 4.00 LVOT Diam: 2.40 LVOT Area: 4.52 Diastolic Function MV Pk E: 1.55 MV Pk A: 1.40 E/A: 1.10 E'Medial: 3.92 E/E' Med: 39.50 E' Laterial: 5.87 E/E' Lat: 26.40 Right Ventricle TAPSE (mm): 28.20 TVS' Blake: 12.90 Tricuspid Valve TR Pk Blake: 2.08 TR Pk Grad: 17.00 RA Press: 3.00 RVSP: 20.00 Great Vessels Aorta Sinus of Valsalva: 3.85 2.0-3.5 cm Ao Asc: 4.10 2.1-3.4 cm Updated in Other Vendor System with Status of Final Oliver Pierce MD electronically signed on 02/11/2025 12:40:12 PM with status of Final
== END ==
LOC: HO.CARD 09:54
PROVIDERS: PCP Physician Assistant; Visit Provider Internal Medicine
DX: I35.0 Nonrheumatic aortic (valve) stenosis (principal)
CPT/HCPCS: 93306; Q9957

== ENCOUNTER → 2025-02-10 10:04 | Outpatient (BNV) | payer MEDICARE, OTHER, SELFPAY | PROVIDERS: PCP Physician Assistant; Visit Provider Internal Medicine Cardiovascular Disease | DX: I35.0 Nonrheumatic aortic (valve) stenosis (principal); I42.2 Other hypertrophic cardiomyopathy; I51.7 Cardiomegaly; I35.1 Nonrheumatic aortic (valve) insufficiency; I34.81 Nonrheumatic mitral (valve) annulus calcification; I77.810 Thoracic aortic ectasia | CPT/HCPCS: 93306 ==